=== PATIENT | male | born 1965 | race Caucasian/White ===

== ENCOUNTER 2017-08-27 22:48 | Emergency (ER) | payer OTHER ==
[~2017-08-27] VITALS: Ht 182.9 cm; Wt 99.5 kg
[2017-08-27 23:01] VITALS: TEMP 36.4; Ht 182.9 cm; Wt 99.5 kg
[2017-08-27] MEDS ORDERED: SODIUM CHLORIDE 0.9% 1000ML 1,000 ML IV STA (23:36)
[2017-08-27 23:51] LABS: BASO % 0.5 %; BASO ABS # 0.03 K/uL (0-0.2); COMPLETE YES; EOS % 4.3 %; IG% 0.2 %; LYMPH % 28.9 %; LYMPH ABS # 1.62 K/uL (1.2-3.4); MEAN CELL VOLUME 86.3 fL (80-100); MEAN CORPUSCULAR HEMOGLOBIN 29.7 pg (25-34); MEAN CORPUSCULAR HGB CONC 34.4 g/dl (32-36); MEAN PLATELET VOLUME 9.7 fL (7.4-10.4); MONO % 10.9 %; NEUT % 55.2 %; PLATELET COUNT 232 K/uL (130-400); RED BLOOD COUNT 4.98 M/uL (4.7-6.1); WHITE BLOOD COUNT 5.61 K/uL (4.8-10.8)
[2017-08-27] MEDS ORDERED: DEXTROSE 50% 50 ML SYR IV STA (23:54)
[2017-08-27] MEDS ORDERED: DEXTROSE 50% 50 ML SYR ONE (23:55)
[2017-08-28 00:08] LABS: CREATININE 0.91 mg/dl (0.60-1.40)
[2017-08-28 00:09] LABS: BUN/CREATININE RATIO 14.8 (10-20); CALCIUM 9.2 mg/dl (8.5-10.1); POTASSIUM 3.6 mmol/L (3.5-5.1)
[2017-08-28] MEDS ORDERED: LRS20 PO (00:16)
[2017-08-28] MEDS ORDERED: FLUT0.15 NAE (00:16)
[2017-08-28] MEDS ORDERED: LACT10SO30 PO (00:16)
[2017-08-28] MEDS ORDERED: BISA1TAB15 PO (00:16)
[2017-08-28] MEDS ORDERED: CHOL1TAB46 PO (00:16)
[2017-08-28] MEDS ORDERED: DOCU100C31 PO (00:16)
[2017-08-28] MEDS ORDERED: PRLSR20 PO (00:16)
[2017-08-28] MEDS ORDERED: PREG200C PO (00:16)
[2017-08-28] MEDS ORDERED: IBUP-1459 PO (00:16)
[2017-08-28] MEDS ORDERED: LAMO200T38 PO (00:16)
[2017-08-28] MEDS ORDERED: CALC625T4 PO (00:16)
[2017-08-28] MEDS ORDERED: LAMO25TA PO (00:16)
[2017-08-28] MEDS ORDERED: HYDR50CA2 PO (00:16)
[2017-08-28] MEDS ORDERED: DULO60CA44 PO (00:16)
[2017-08-28] MEDS ORDERED: METO25TA56 PO (00:16)
[2017-08-28] MEDS ORDERED: ACET325T96 PO (00:16)
[2017-08-28] MEDS ORDERED: PRAM1TAB6 PO (00:16)
[2017-08-28] MEDS ORDERED: CLON2TAB3 PO (00:16)
[2017-08-28 02:59] VITALS: BP 136/90; PULSE 55; O2SAT 98
--- NOTE | 2017-08-28 06:39 | DIAGNOSTIC IMAGING REPORT ---
CT HEAD WITHOUT CONTRAST (CT) CLINICAL HISTORY: Seizure. Acute change in mental status. Patient found on ground. COMPARISON STUDY: No previous studies for comparison. TECHNIQUE: Axial CT of the brain is performed from the vertex to the skull base. IV contrast was not administered for this examination. A dose lowering technique was utilized adhering to the principles of ALARA. CT DOSE: FINDINGS: No intra or extra-axial mass lesions are visualized. There is no CT evidence of acute cortical infarction. There is no evidence of midline shift. There is no acute hemorrhage. No calvarial fractures are visualized. There is a left frontal ventriculostomy catheter. The tip terminates within the anterior horn of the right lateral ventricle. There is no evidence of pathologic ventricular dilatation. There is no evidence of acute sinusitis. There is a small focus of encephalomalacia within the right anterior frontal vertex. The subjacent to a calvarial defect and likely relates to a prior shunt catheter tract IMPRESSION: No acute intracranial findings Electronically signed by: Cody Cr M.D. 08/28/2017 6:38 AM Dictated Date/Time: 08/28/2017 6:36 AM
--- NOTE | 2017-08-28 06:52 | DIAGNOSTIC IMAGING REPORT ---
LUMBAR SPINE WITHOUT CLINICAL HISTORY: 51 years-old Male presenting with low back pain, fall, AMS, found down. TECHNIQUE: Multidetector CT of the lumbar spine was performed without the use of intravenous contrast. IV contrast: None. A dose lowering technique was used consistent with the principles of ALARA (as low as reasonably achievable). COMPARISON: None. CT DOSE (mGy.cm): The estimated cumulative dose is 1465.55 mGy.cm. FINDINGS: Academic Support Specialist topogram: Unremarkable. Normal lumbar lordosis. Vertebral bodies maintain normal height and alignment. Intervertebral disc height loss associated with significant degenerative disc disease at L4-5 with vacuum disc phenomenon, osteophytosis, and endplate sclerosis evident. Milder degenerative changes noted at the remaining levels. No acute fracture or subluxation. Disc bulges noted at every level, most severe at L2-3. Varying degrees of neural foraminal narrowing evident most severe at L4-5 and L5-S1. Paraspinal soft tissues demonstrate infiltration of the presacral space. No evidence of a sacral fracture within the visualized portion of the sacrum. IMPRESSION: 1. No acute osseous injury of the lumbar spine. 2. Multilevel degenerative changes with spinal stenosis most severe at L2-3 and neural foraminal narrowing most severe at L4-5 and L5-S1, further detailed above. 3. Presacral infiltration, incompletely visualized and of uncertain etiology. Further evaluation with dedicated contrast enhanced CT of the abdomen and pelvis could be considered, especially given the history of trauma. The report will be called/faxed according to standard departmental protocol. Electronically signed by: Thad Ruggiero M.D. 08/28/2017 6:50 AM Dictated Date/Time: 08/28/2017 6:46 AM
--- NOTE | 2017-08-28 06:55 | DIAGNOSTIC IMAGING REPORT ---
ADDENDUM Please refer to the corrected dictation below. CHEST ONE VIEW PORTABLE CLINICAL HISTORY: 51 years-old Male presenting with AMS. TECHNIQUE: Portable upright AP view of the chest was obtained. COMPARISON: None. FINDINGS: The ventriculoperitoneal shunt descends along the left neck and projects over the mid line mediastinum, poorly visualized below the level of the T6 vertebral body. Lungs and pleural spaces clear. Post traumatic deformity of the right clavicle. Anterior cervical fusion hardware noted. Deformities of the right lateral second through fourth anterior ribs suggestive of fracture. Upper abdomen normal. IMPRESSION: 1. Mildly prominent superior mediastinal contour could be due to portable supine technique. 2. Age-indeterminate fractures of the right anterior second through fourth ribs. Electronically signed by: Thad Ruggiero M.D. 08/28/2017 8:31 AM Dictated Date/Time: 08/28/2017 8:29 AM ORIGINAL REPORT CHEST ONE VIEW PORTABLE CLINICAL HISTORY: 51 years-old Male presenting with AMS. TECHNIQUE: Portable upright AP view of the chest was obtained. COMPARISON: None. FINDINGS: Left internal jugular central venous catheter does not follow the expected course for intravenous placement. Mild apparent enlargement of the superior mediastinum may be due to portable supine technique. Cardiac silhouette normal in size. Mildly low lung volumes. Lungs and pleural spaces clear. Post traumatic deformity of the right clavicle. Anterior cervical fusion hardware noted. Deformities of the right lateral second through fourth anterior ribs suggestive of fracture. Upper abdomen normal. IMPRESSION: 1. Left internal jugular central venous catheter does not follow the expected course for intravenous placement. This raises concern for an intra-arterial placement. Correlate with blood gas and consider contrast-enhanced chest CT versus removal. 2. Mildly prominent superior mediastinal contour could be due to portable supine technique. 3. Age-indeterminate fractures of the right anterior second through fourth ribs. The report will be called/faxed according to standard departmental protocol. Electronically signed by: Thad Ruggiero M.D. 08/28/2017 6:54 AM Dictated Date/Time: 08/28/2017 6:51 AM
--- NOTE | 2017-08-28 07:16 | EMERGENCY ROOM VISIT NOTE ---
History Report prepared by Annika: Deb Baptiste Under the Supervision of: Dr. Sweetie Hanna M.D. First contact with patient: 23:14 Chief Complaint: SEIZURE Stated Complaint: SEIZURE Nursing Triage Summary: patient found in cell at senior living,brought in by ems patient had a seizure yesterday patient drowsy and able to answer questions History of Present Illness The patient is a 51 year old male who presents to the Emergency Room with complaints of an episode of a seizure occurring prior to arrival. Per the nursing staff, the patient was found in his snf cell unresponsive. The guards state that they believe he had a seizure and that he has a history of seizures. They report that he had a seizure yesterday and that they recently changed his medications. The guard notes that EMS took his blood sugar and it was 56. The patient complains of back pain and hip pain. He reports his symptoms are worse with movement. Per past records, the patient takes Lamictal 250 BID. Source of History: nursing staff, other (subway guard) Onset: prior to arrival Position: other (global) Quality: other (global) Timing: other (episode) Modifying Factors (Worsening): movement Associated Symptoms: + back pain Note: The patient complains of hip pain. Review of Systems See HPI for pertinent positives & negatives. A total of 10 systems reviewed and were otherwise negative. Past Medical & Surgical Medical Problems: (1) Seizures Family History Patient reports no known family medical history. Social History Smoking Status: Never Smoker Marital Status: single Housing Status: other (incarcerated) Occupation Status: other (prisoner) Current/Historical Medications Scheduled Baclofen (Baclofen), 20 MG PO BID Bisacodyl (Bisacodyl), 1 TAB PO QAM Calcium Polycarbophil (Fiber Laxative), 625 MG PO BID Cholecalciferol (Vitamin D3), 5,000 UNITS PO QAM Clonazepam (Klonopin), 2 MG PO BID Docusate Sodium (Docusate Sodium), 1 CAP PO BID Duloxetine Hcl (Cymbalta), 60 MG PO QAM Fluticasone Propionate (Nasal) (Flonase Allergy Relief), 2 SPRAYS RACHEL QAM Hydroxyzine Pamoate (Vistaril), 50 MG PO BID Lamotrigine (Lamictal), 200 MG PO BID Lamotrigine (Lamictal), 25 MG PO BID Metoprolol Tartrate (Lopressor) (Lopressor), 25 MG PO BID Omeprazole (Prilosec), 20 MG PO QAM Pramipexole Dihydrochloride (Pramipexole Dihydrochlori), 1 MG PO TID Pregabalin (Lyrica), 200 MG PO BID Scheduled PRN Acetaminophen Tab (Tylenol), 650 MG PO BID PRN for Headache Ibuprofen (Motrin), 400 MG PO TID PRN for Pain Lactulose (Encephalopathy) (Lactulose), 30 ML PO TID PRN for Constipation Allergies Coded Allergies: Methadone (Verified Allergy, Unknown, SCI LIST, 08/28/17) Penicillins (Verified Allergy, Unknown, SCI LIST, 08/28/17) Quetiapine (Verified Allergy, Unknown, SCI LIST, 08/28/17) Statins (Verified Allergy, Unknown, SCI LIST, 08/28/17) Tetracycline (Verified Allergy, Unknown, SCI LIST, 08/28/17) Physical Exam Vital Signs Date Time Temp Pulse Resp B/P (MAP) Pulse Ox O2 Delivery O2 Flow Rate FiO2 08/28/17 02:59 55 18 136/90 98 Room Air 08/28/17 02:21 71 18 120/93 98 08/28/17 02:15 60 08/28/17 02:05 65 15 08/28/17 00:30 58 18 120/89 98 Room Air 08/27/17 23:01 36.4 55 18 115/78 96 Room Air 08/27/17 23:00 57 Physical Exam Vital signs reviewed. General: Well-appearing , in no significant distress. Boarded and collared. Somnolence but arousable. Slurred speech. Incontinent of stool. HEENT: No scleral icterus, PERRLA, neck supple. Atraumatic. Edentulism. Cardiovascular: Regular rate and rhythm, no extra sounds. Pulmonary: Clear to auscultation bilaterally, normal work of breathing. Abdomen: Soft, nontender, nondistended, positive bowel sounds. Musculoskeletal: Atraumatic, no significant deformity. Cervical, thoracic and lumbar spine are palpated, nontender, no step-off or deformity appreciated. Some discomfort to low back with straight leg raise on the left. Neurologic: Patient awake alert and oriented x 3, full strength in all 4 extremities. No meningeal signs. Skin: Warm, dry, no rash. No significant abrasions/laceration. Medical Decision & Procedures ER Provider Diagnostic Interpretation: Radiology results as stated below per my review and radiologist interpretation: CHEST X-RAY: Findings: The results were interpreted by me. No focal lung consolidation. No failure. Post surgical change notes to spine. DRAWER IN HAND shunt noted. CT HEAD: Left frontal appraoch DRAWER IN HAND shunt catheter with tip extending into frontal horn of right lateral ventricle. No hydrocephalus. No acute intracranial hemorrhage or mass effect. Small region of right superior frontal gyrus hypodensity, most likely related to remote ventriculostomy catheter placement given adjacent skull defect. Visualized parnasal sinuses and mastoid air cells are clear. CT C SPINE: No evidence of acute fracture. C6-C7 anterior fusion. REversal normal cervical lordosis nad multilevel degnerative changes. Mild anterolisthesis of C3 on C4 is likely related to facet arthropathy, with cystlike or erosive changes at right facets and uncovertebral region. CT L SPINE: Mild anterior wedge deformity of L1, likely chronic. No visible fracture line or adjacent soft tissue swelling to suggest acute fracture. Moderate to sever degenerative changes result in multilevel canal and foraminal narrowing. L1-L2, posterior disc bulge and facet arthropathy causes mild-to moderate canal stenosis. L2-L3, posterior disc/ ossify complex and facet arthropathy/ edema and facet hypertrophy causes moderate to severe canal stenosis. L3-L4, large posterior disc bulge.extrusion and facet arthropathy cause severe canal stenosis. L4-L5, severe disc space narrowing and endplate changes with posterior disc/ osteophyte complex and facet arthropathy/ segments hypertrophy causing moderate to sever canal stenosis. Severe right L5-S1 foraminal narrowing. Lesser degree foraminal narrowing at other levels. Laboratory Results 08/27/17 23:05 Red Blood Count 4.98, Mean Corpuscular Volume 86.3, Mean Corpuscular Hemoglobin 29.7, Mean Corpuscular Hemoglobin Concent 34.4, Mean Platelet Volume 9.7, Neutrophils (%) (Auto) 55.2, Lymphocytes (%) (Auto) 28.9, Monocytes (%) (Auto) 10.9, Eosinophils (%) (Auto) 4.3, Basophils (%) (Auto) 0.5, Neutrophils # (Auto ) 3.10, Lymphocytes # (Auto) 1.62, Monocytes # (Auto) 0.61, Eosinophils # (Auto ) 0.24, Basophils # (Auto) 0.03 08/27/17 23:05 Test 08/27/17 23:05 08/27/17 23:46 08/28/17 00:41 White Blood Count 5.61 K/uL (4.8-10.8) Red Blood Count 4.98 M/uL (4.7-6.1) Hemoglobin 14.8 g/dL (14.0-18.0) Hematocrit 43.0 % (42-52) Mean Corpuscular Volume 86.3 fL (80-100) Mean Corpuscular Hemoglobin 29.7 pg (25-34) Mean Corpuscular Hemoglobin Concent 34.4 g/dl (32-36) Platelet Count 232 K/uL (130-400) Mean Platelet Volume 9.7 fL (7.4-10.4) Neutrophils (%) (Auto) 55.2 % Lymphocytes (%) (Auto) 28.9 % Monocytes (%) (Auto) 10.9 % Eosinophils (%) (Auto) 4.3 % Basophils (%) (Auto) 0.5 % Neutrophils # (Auto) 3.10 K/uL (1.4-6.5) Lymphocytes # (Auto) 1.62 K/uL (1.2-3.4) Monocytes # (Auto) 0.61 K/uL (0.11-0.59) Eosinophils # (Auto) 0.24 K/uL (0-0.5) Basophils # (Auto) 0.03 K/uL (0-0.2) RDW Standard Deviation 41.6 fL (36.4-46.3) RDW Coefficient of Variation 13.2 % (11.5-14.5) Immature Granulocyte % (Auto) 0.2 % Immature Granulocyte # (Auto) 0.01 K/uL (0.00-0.02) Anion Gap 7.0 mmol/L (3-11) Est Creatinine Clear Calc Drug Dose 120.0 ml/min Estimated GFR () 114.3 Estimated GFR (Non- 98.6 BUN/Creatinine Ratio 14.8 (10-20) Calcium Level 9.2 mg/dl (8.5-10.1) Total Bilirubin 0.4 mg/dl (0.2-1) Direct Bilirubin 0.1 mg/dl (0-0.2) Aspartate Amino Transf (AST/SGOT) 17 U/L (15-37) Alanine Aminotransferase (ALT/SGPT) 19 U/L (12-78) Alkaline Phosphatase 87 U/L (45-117) Total Protein 6.8 gm/dl (6.4-8.2) Albumin 3.4 gm/dl (3.4-5.0) Bedside Troponin I < 0.030 ng/ml (0-0.045) Bedside Glucose 118 mg/dl (70-99) Laboratory results per my review. Medications Administered Medications (Trade) Dose Ordered Sig/Lisa Route Start Time Stop Time Status Last Admin Dose Admin Sodium Chloride 1,000 ml @ 200 mls/hr Q5H STAT IV 08/27/17 23:36 08/28/17 04:35 DC 08/28/17 01:05 200 MLS/HR Dextrose (Dextrose 50% 50ML Syringe) 50 ml NOW STAT IV 08/27/17 23:54 08/27/17 23:55 DC 08/28/17 00:06 50 ML ECG Indication: other (LOC) Rate (beats per minute): 58 Rhythm: sinus bradycardia Findings: 1st degree AV block, no acute ischemic change, no ectopy ED Course 2330: Past medical records reviewed. The patient was evaluated in room C3. A complete history and physical examination was performed. 2336: Ordered NSS 1000 ml @ 200 mls/hr IV. 2354: Ordered Dextrose 50 ml IV. 0230: I reevaluated the patient and he was awake and talking. 0319: Upon reevaluation, the patient appeared to have improvement of his symptoms. I discussed findings with the patient. He verbalized agreement of the treatment plan. The patient was discharged home. Medical Decision Differential diagnosis: Etiologies such as metabolic, infection, hypoglycemia, electrolyte abnormalities , cardiac sources, intracerebral event, toxicologic, neurologic, as well as others were entertained. This pt was evaluated and appeared to be in no distress. IV access was obtained and lab work was drawn. Pt was placed on the paraoptometric. Seizure precautions were maintained. CT head was performed and reveals a DRAWER IN HAND shunt, but no hydrocephalus. Pt mental status cleared. Med list was reviewed. Pt was instructed to continue lamictal as prescribed. He should follow with neurology this week for medication review. Pt will return to the ED for worsening of symptoms or any medical concerns. Impression Primary Impression: Seizures Scribe Attestation The scribe's documentation has been prepared under my direction and personally reviewed by me in its entirety. I confirm that the note above accurately reflects all work, treatment, procedures, and medical decision making performed by me. Departure Information Dispostion Home / Self-Care Referrals Chriss OAKLEY (PCP) Forms HOME CARE DOCUMENTATION FORM, IMPORTANT VISIT INFORMATION Patient Instructions My [facility] Additional Instructions Diagnosis: Seizure disorder Follow up with your doctor regarding pending lamictal levels. Your seizure medications may need to be adjusted. Neurologic consulation is advised. Follow up with your doctor this week for reevaluation. Return to the ED for reevaluation.
--- NOTE | 2017-08-28 07:30 | DIAGNOSTIC IMAGING REPORT ---
CT OF THE CERVICAL SPINE CLINICAL HISTORY: Seizure. Neck pain. Change in mental status. Patient found on ground. COMPARISON STUDY: No previous studies for comparison. CT DOSE: 1203.20 mGy.cm TECHNIQUE: CT scan of the cervical spine was performed from the skull base to the thoracic inlet. Images are reviewed in the axial, sagittal, and coronal planes. IV contrast was not administered for this examination. A dose lowering technique was utilized adhering to the principles of ALARA. FINDINGS: The visualized portions of the lung apices reveal no evidence of pneumothorax. The prevertebral soft tissues are normal. No fractures or subluxations are visualized. There is a reversal of the normal cervical lordosis. There are multilevel degenerative changes. There are postsurgical changes of a C6-7 anterior cervical discectomy and fusion. IMPRESSION: 1. No acute fractures or traumatic subluxations 2. Postsurgical changes of a C6-7 fusion 3. Reversal of the normal cervical lordosis with multilevel degenerative change Electronically signed by: Cody Cr M.D. 08/28/2017 7:28 AM Dictated Date/Time: 08/28/2017 7:24 AM
== END 2017-08-28 03:08 | disposition home or self-care (01) ==
LOC: C.EDC 22:51
DX: R56.9 Unspecified convulsions (principal); Z98.2 Presence of cerebrospinal fluid drainage device; Z79.899 Other long term (current) drug therapy

== ENCOUNTER 2017-11-18 23:39 | Emergency (ER) | payer OTHER ==
[~2017-11-18] VITALS: Ht 182.9 cm; Wt 85.0 kg
[~2017-11-18 23:39] MED LIST: ACET325T96 PO; BISA1TAB15 PO; CALC625T4 PO; CHOL1TAB46 PO; CLON2TAB3 PO; DOCU100C31 PO; DULO60CA44 PO; FLUT0.15 NAE; HYDR50CA2 PO; IBUP-1459 PO; LACT10SO30 PO; LAMO200T35 PO; LAMO25TA PO; LRS20 PO; METO25TA56 PO; PRAM1TAB6 PO; PREG200C PO; PRLSR20 PO
[2017-11-18 23:43] VITALS: TEMP 36.7; Ht 182.9 cm; Wt 85.0 kg
[2017-11-18 23:53] VITALS: O2SAT 98
[2017-11-19 00:22] LABS: BASO % 0.4 %; BASO ABS # 0.02 K/uL (0-0.2); COMPLETE YES; EOS % 1.4 %; HEMATOCRIT 43.7 % (42-52); IG% 0.2 %; LYMPH % 19.2 %; LYMPH ABS # 1.09 K/uL (1.2-3.4); MEAN CELL VOLUME 86.5 fL (80-100); MEAN CORPUSCULAR HEMOGLOBIN 29.5 pg (25-34); MEAN CORPUSCULAR HGB CONC 34.1 g/dl (32-36); MEAN PLATELET VOLUME 9.9 fL (7.4-10.4); MONO % 10.4 %; NEUT % 68.4 %; PLATELET COUNT 202 K/uL (130-400); RED BLOOD COUNT 5.05 M/uL (4.7-6.1); WHITE BLOOD COUNT 5.68 K/uL (4.8-10.8)
[2017-11-19 00:33] LABS: PARTIAL THROMBOPLASTIN RATIO 1.1; PROTHROMBIN TIME (PATIENT) 10.5 SECONDS (9.0-12.0)
[2017-11-19 00:34] LABS: URINE APPEARANCE CLEAR (CLEAR); URINE BILIRUBIN NEG (NEG); URINE COLOR YELLOW; URINE EPITHELIAL CELL AUTO 0-5 /lpf (0-5); URINE NITRITE NEG (NEG); URINE PH 5.5 (4.5-7.5); URINE SPECIFIC GRAVITY 1.011 (1.000-1.030); UROBILINOGEN NEG (NEG); ZZUR CULT IF INDIC CLEAN CATCH NO
[2017-11-19 00:40] LABS: BUN/CREATININE RATIO 11.6 (10-20); CALCIUM 9.1 mg/dl (8.5-10.1); CREATININE 0.94 mg/dl (0.60-1.40); POTASSIUM 3.7 mmol/L (3.5-5.1)
[2017-11-19 01:08] LABS: MANUAL MICROSCOPIC REQUIRED? NO; REVIEW REQ? NO
[2017-11-19] MEDS ORDERED: SODIUM CHLORIDE 0.9% 1000ML 1,000 ML IV STA (01:11)
[2017-11-19] MEDS ORDERED: CALC625T PO (01:41)
[2017-11-19] MEDS ORDERED: SKINCRE42 TOP (01:48)
[2017-11-19] MEDS ORDERED: [UNRECOGNIZED DRUG - CODE] TOP (01:48)
[2017-11-19] MEDS ORDERED: EMOLLOT TOP (01:50)
[2017-11-19 02:05] LABS: BENZODIAZEPINE, URINE NEG (NEG); COCAINE,URINE NEG (NEG); PHENCYCLIDINE, URINE NEG (NEG)
--- NOTE | 2017-11-19 02:15 | EMERGENCY ROOM VISIT NOTE ---
History First contact with patient: 23:47 Chief Complaint: CONFUSION Stated Complaint: CONFUSION Nursing Triage Summary: Patient presents from jail with 2 guards for evaluation of confusion. Patient has been confused the last several days according to staff at jail. Patient is disoriented and answers orientation questions inappropriately. Patient reports head pain, neck pain, and bilateral hand numbness. Patient has hx ADMINISTRATIVE SUPPORT COORDINATOR shunt. Patient has frequent falls according to staff and patient. Patient has abrasions to face and forehead. History of Present Illness The patient is a 52 year old male who presents to the Emergency Room with complaints of altered mental status. Per the jail the patient has been confused for the past few days. Patient currently complains of headache and neck pain as good as aching, ranging in severity 5 out of 10. Nothing makes it better or worse. It does not radiate. Patient currently believes it is 1997 and Joe is the president. Patient is able to follow commands but is unaware of the year or month. He knows his name and his current situation where he is at. Patient denies chest pain, dyspnea, abdominal pain, fevers, vomiting, cold symptoms. Patient is unaware that he has a ADMINISTRATIVE SUPPORT COORDINATOR shunt. He also has a history of seizures. Per the jail he has fallen multiple times and this is how he sustained his facial and head injuries. Review of Systems Unable to obtain secondary to altered mental status Past Medical/Surgical History Medical Problems: (1) Seizures ADMINISTRATIVE SUPPORT COORDINATOR shunt Family History Patient reports no known family medical history. Social History Smoking Status: Current Every Day Smoker Marital Status: single Housing Status: other Occupation Status: other Current/Historical Medications Scheduled Baclofen (Baclofen), 20 MG PO BID Calcium Polycarbophil (Fibercon), 625 MG PO BID Cholecalciferol (Vitamin D3), 5,000 UNITS PO QAM Emollient (Aloe Aftersun Lotion), 1 APPLN TOP BID Lamotrigine (Lamictal), 200 MG PO BID Lamotrigine (Lamictal), 25 MG PO BID Pramipexole Dihydrochloride (Pramipexole Dihydrochlori), 1 MG PO TID Pregabalin (Lyrica), 200 MG PO BID Skin Protectants, Misc. (Sensi-Care Moisturizing), 1 APPLN TOP QAM Scheduled PRN Acetaminophen Tab (Tylenol), 650 MG PO BID PRN for Headache Docusate Sodium (Docusate Sodium), 1 CAP PO DAILY PRN for Constipation Ibuprofen (Motrin), 400 MG PO TID PRN for Pain Lactulose (Encephalopathy) (Lactulose), 30 ML PO TID PRN for Constipation Vitamin E (Topical) (Super E Hand/Body), 1 APPLN TOP BID PRN for UNDECIDED Physical Exam Vital Signs Date Time Temp Pulse Resp B/P (MAP) Pulse Ox O2 Delivery O2 Flow Rate FiO2 11/19/17 00:31 90 16 136/92 98 Room Air 11/19/17 00:01 91 11/18/17 23:53 98 Room Air 11/18/17 23:43 36.7 97 16 136/89 97 Room Air Physical Exam PHYSICAL EXAM: VITALS: Vitals are noted on the nurse's note and reviewed by myself. Vital signs stable. GENERAL: White male in shackles with multiple facial injuries and abrasions, in no acute distress, nondiaphoretic, well-developed well-nourished. SKIN: Multiple contusions and abrasions to face The rest of the skin was without obvious lacerations or abrasions. Capillary reflex less than 2 seconds. HEAD: Normocephalic EARS: External auditory canals clear, tympanic membranes pearly campbell without erythema or effusion bilaterally. No hemotympanums. No harding sign. No mastoid tenderness. EYES: Pupils equal round and reactive to light and accommodation. Conjunctivae without injection, sclerae without icterus. Extraocular movements intact. NOSE: Patent, turbinates without inflammation or discharge. No sinus tenderness. No septal hematoma or bleeding. FACE: No facial bone tenderness. Full range of motion of the jaw without tenderness. MOUTH: Mucous membranes moist. Pharynx without erythema or exudate. Uvula midline. Airway patent. Tongue does not deviate. NECK: Supple without nuchal rigidity. Cervical spine is nontender. Full range of motion of the neck without tenderness. No JVD. HEART: Regular rate and rhythm LUNGS: Clear to auscultation bilaterally without wheezes, rales or rhonchi. No dullness to percussion. No retractions or accessory muscle use. No chest wall tenderness. ABDOMEN: Positive bowel sounds x 4. Normal tympanic percussion. Soft, nontender, without masses or organomegaly. No guarding or rebound tenderness. MUSCULOSKELETAL: No tenderness of the thoracic or lumbar spine. Full range of motion without tenderness to palpation in all extremities. Strength 5/5 throughout. Peripheral pulses 2+. NEURO: Patient was alert and oriented to person place but not time. Normal sensation to light and sharp touch. Negative pronator drift. Cerebellar function intact. No other focal neurological deficits. Medical Decision & Procedures Laboratory Results 11/19/17 00:05 Red Blood Count 5.05, Mean Corpuscular Volume 86.5, Mean Corpuscular Hemoglobin 29.5, Mean Corpuscular Hemoglobin Concent 34.1, Mean Platelet Volume 9.9, Neutrophils (%) (Auto) 68.4, Lymphocytes (%) (Auto) 19.2, Monocytes (%) (Auto) 10.4, Eosinophils (%) (Auto) 1.4, Basophils (%) (Auto) 0.4, Neutrophils # (Auto ) 3.89, Lymphocytes # (Auto) 1.09, Monocytes # (Auto) 0.59, Eosinophils # (Auto ) 0.08, Basophils # (Auto) 0.02 11/19/17 00:05 Test 11/19/17 00:05 11/19/17 00:08 11/19/17 00:09 11/19/17 00:12 White Blood Count 5.68 K/uL (4.8-10.8) Red Blood Count 5.05 M/uL (4.7-6.1) Hemoglobin 14.9 g/dL (14.0-18.0) Hematocrit 43.7 % (42-52) Mean Corpuscular Volume 86.5 fL (80-100) Mean Corpuscular Hemoglobin 29.5 pg (25-34) Mean Corpuscular Hemoglobin Concent 34.1 g/dl (32-36) Platelet Count 202 K/uL (130-400) Mean Platelet Volume 9.9 fL (7.4-10.4) Neutrophils (%) (Auto) 68.4 % Lymphocytes (%) (Auto) 19.2 % Monocytes (%) (Auto) 10.4 % Eosinophils (%) (Auto) 1.4 % Basophils (%) (Auto) 0.4 % Neutrophils # (Auto) 3.89 K/uL (1.4-6.5) Lymphocytes # (Auto) 1.09 K/uL (1.2-3.4) Monocytes # (Auto) 0.59 K/uL (0.11-0.59) Eosinophils # (Auto) 0.08 K/uL (0-0.5) Basophils # (Auto) 0.02 K/uL (0-0.2) RDW Standard Deviation 42.2 fL (36.4-46.3) RDW Coefficient of Variation 13.5 % (11.5-14.5) Immature Granulocyte % (Auto) 0.2 % Immature Granulocyte # (Auto) 0.01 K/uL (0.00-0.02) Prothrombin Time 10.5 SECONDS (9.0-12.0) Prothromb Time International Ratio 1.0 (0.9-1.1) Activated Partial Thromboplast Time 28.5 SECONDS (21.0-31.0) Partial Thromboplastin Ratio 1.1 Anion Gap 5.0 mmol/L (3-11) Est Creatinine Clear Calc Drug Dose 103.2 ml/min Estimated GFR () 109.1 Estimated GFR (Non- 94.2 BUN/Creatinine Ratio 11.6 (10-20) Calcium Level 9.1 mg/dl (8.5-10.1) Total Bilirubin 0.3 mg/dl (0.2-1) Aspartate Amino Transf (AST/SGOT) 30 U/L (15-37) Alanine Aminotransferase (ALT/SGPT) 24 U/L (12-78) Alkaline Phosphatase 74 U/L (45-117) Total Protein 7.5 gm/dl (6.4-8.2) Albumin 3.8 gm/dl (3.4-5.0) Globulin 3.7 gm/dl (2.5-4.0) Albumin/Globulin Ratio 1.0 (0.9-2) Bedside Lactic Acid Venous 2.07 mmol/L (0.90-1.70) Bedside Troponin I < 0.030 ng/ml (0-0.045) Ammonia 38.0 umol/L (11-32) Test 11/19/17 00:15 Urine Color YELLOW Urine Appearance CLEAR (CLEAR) Urine pH 5.5 (4.5-7.5) Urine Specific Ajo 1.011 (1.000-1.030) Urine Protein NEG (NEG) Urine Glucose (UA) NEG (NEG) Urine Ketones NEG (NEG) Urine Occult Blood NEG (NEG) Urine Nitrite NEG (NEG) Urine Bilirubin NEG (NEG) Urine Urobilinogen NEG (NEG) Urine Leukocyte Esterase NEG (NEG) Urine WBC (Auto) 0 /hpf (0-5) Urine RBC (Auto) 0-4 /hpf (0-4) Urine Hyaline Casts (Auto) 0 /lpf (0-5) Urine Epithelial Cells (Auto) 0-5 /lpf (0-5) Urine Bacteria (Auto) NEG (NEG) Urine Opiates Screen NEG (NEG) Urine Methadone, Qualitative NEG (NEG) Urine Barbiturates NEG (NEG) Urine Phencyclidine (PCP) Level NEG (NEG) Ur Amphetamine/Methamphetamine NEG (NEG) MDMA (Ecstasy) Screen NEG (NEG) Urine Benzodiazepines Screen NEG (NEG) Urine Cocaine Metabolite NEG (NEG) Urine Marijuana (THC) NEG (NEG) Medications Administered Medications (Trade) Dose Ordered Sig/Lisa Route Start Time Stop Time Status Last Admin Dose Admin Sodium Chloride 1,000 ml @ 999 mls/hr Q1H1M STAT IV 11/19/17 01:11 11/19/17 02:11 11/19/17 01:30 999 MLS/HR ED Course Prior records/ancillary studies reviewed and summarized above. Nursing notes reviewed. Additional history obtained from correction officers. The patient's history was concerning for altered mental status. Differential diagnosis: Etiologies such as metabolic, infection, hypoglycemia, electrolyte abnormalities , cardiac sources, intracerebral event, toxicologic, neurologic, as well as others were entertained. Physical examination: As above. ER treatment provided: IV Lock Normal saline hydration. [facility] was placed On reassessment the patients mental status improved. Diagnostics interpretation by me: ECG: Normal sinus, poor baseline, no acute ST-T wave changes, rate of 89. Impression normal sinus rhythm interpreted by myself The labs revealed ammonia 38. Stable H&H. Negative troponin Imaging studies: Chest x-ray with no acute consolidation, pneumothorax or free air per my interpretation Head and cervical CT were read by stat radiology and negative for intracranial bleed. C-spine was concerning for possible fragmentation of the right C4 superior articular process Patient was reassessed and was alert and oriented 4. I then repeated his ROS and A total of 10 systems reviewed and were otherwise negative. Patient did not have any C-spine pain on clinical exam. Imaging was ordered as he was complaining of headache and neck pain and was confused appearing. He was laughing about being confused earlier. He was informed that since he was confused appearing and extensive work was done. He did not seem to care about that. Patient was neurovascularly and neurologically intact. I then spoke to the jail nurse and states that he normally is cooperative but does not know this patient that well. I informed him of the results at about outpatient follow-up with orthopedic spine and wearing a [place]. Consultation: A consultation was placed with the orthopedic spine, Dr. Nguyen. The case was discussed and diagnostics were reviewed. He recommends [place] and outpatient follow-up in a week if patient is still having pain. He does not need follow- up if he is pain free. Exam and history seem consistent with possible head injury, neck injury and possible episode of confusion that is now resolved. Patient could've been malingering also. He was laughing about the fact that he was confused earlier. Patient did not say whether not he pretended to be confused. Patient was neurovascularly and neurologically intact. No other injuries are noted. By the evaluation outlined above emergent etiologies such as acute intracranial bleed, CVA, postural headache, meningitis, encephalitis, mass or mass effect, sinusitis, infection, temporal arteritis, trigeminal neuralgia, pseudotumor cerebri, tension headache, cluster headache, carbon monoxide exposure, cardiac, neurological, intra-abdominal, as well as others were deemed relatively unlikely. The pt informed about the findings as listed above. All questions were answered and pleased with the treatment. Return instructions were outlined and the patient was discharged in stable condition. Referral: The patient was referred back to their primary care physician for follow-up in 2 to 3 days and spine in a week if still symptomatic for a recheck of the current condition. . Medical Decision As above Medication Reconcilliation Current Medication List: was personally reviewed by me Blood Pressure Screening Patient's blood pressure: Normal blood pressure Impression Primary Impression: Confusion Additional Impressions: Head injury Neck pain Departure Information Dispostion Home / Self-Care Condition GOOD Referrals Chriss OAKLEY (PCP) Patient Instructions My [facility] [place] [employer] Additional Instructions Wear the neck collar at all times except for showering and sleeping. Ibuprofen(Motrin, Advil) may be used for fever or pain. Use 600mg every six hours as needed. Take with food. Avoid using more than 2400mg in a 24 hour period. Do not use 2400mg per day for more than three consecutive days without physician direction. Prolonged inappropriate use can lead to stomach upset or ulcers. (AND/OR) Acetaminophen(Tylenol) may be used for fever or pain. Use 1000mg every six hours as needed. Avoid using more than 3000mg in a 24 hour period. Rest and drink plenty of fluids as tolerated. Continue current medications. Avoid strenuous activities and anything that worsens your pain. Resume normal activities once your symptoms resolve. Return to the ER immediately for worsening or persistent confusion, numbness, tingling, weakness, abdominal pain, vomiting, fevers, chest pains, difficulty breathing, worsening of your condition, or as needed. Follow up with your primary physician in 2-3 days for a recheck of your current condition. Follow-up with spine in one week if you are still having neck pain. Problem Qualifiers
[2017-11-19 02:33] VITALS: BP 128/84; PULSE 83; O2SAT 98
--- NOTE | 2017-11-19 06:42 | DIAGNOSTIC IMAGING REPORT ---
CHEST ONE VIEW PORTABLE CLINICAL HISTORY: Sepsis. COMPARISON STUDY: Chest radiograph August 19, 2017. FINDINGS: Note is made of an anterior cervical spine fusion and partially visualized ventriculostomy catheter. No pneumothorax or pleural effusion is identified. There is no consolidation to suggest pneumonia. There is no evidence of pulmonary edema. Cardiomediastinal silhouette is normal. There is a healed right clavicular fracture. IMPRESSION: No acute cardiopulmonary findings. Electronically signed by: Jose Fregoso M.D. 11/19/2017 6:40 AM Dictated Date/Time: 11/19/2017 6:39 AM
--- NOTE | 2017-11-19 06:46 | DIAGNOSTIC IMAGING REPORT ---
CERVICAL SPINE W/O CT DOSE: 1092.85 mGy.cm CLINICAL HISTORY: 52 years-old Male with ams, SUAREZ/neck pain. Acute headache with neck pain COMPARISON: CT cervical spine 08/28/2017. TECHNIQUE: Multiple axial CT images of the cervical spine were obtained without contrast. A dose lowering technique was utilized adhering to the principles of ALARA. FINDINGS: Linear lucency involving the right C4 superior articular facet is nicely seen on image 27 series 501 is new from prior study. On the axial images the margins appear sclerotic as seen on image 315 series 5. No additional acute abnormality of the cervical spine identified. There is reversal the normal cervical lordosis with 25 degrees kyphotic curvature centered at the C6-C7 level. Anterior plate and screw fusion with discectomy redemonstrated at C6-C7 with complete bony fusion of the vertebral bodies. Multilevel intervertebral disc space narrowing, endplate spurring and facet arthropathy is noted with facet arthrosis most pronounced on the right at C3-C4. 3 mm anterolisthesis C3 on C4 appears slightly progressed from prior study, previously 2 mm. Partial fusion of the facets noted on the right at C6/C7. No prevertebral soft tissue swelling identified. Lung apices are clear. IMPRESSION: 1. Linear lucency with sclerotic margins involves the superior articular facet at C4 which appears new from prior study dated 08/28/2017 suggesting subacute fracture. There is also severe facet arthropathy noted on the right at C3-C4 with 3 mm anterolisthesis which is likely secondary to associated facet arthropathy. 2. Prior anterior plate and screw fusion and discectomy with bony fusion at the C6-C7 level. 3. Reversal of the normal cervical lordosis with 25 degrees kyphotic curvature centered at C6-C7. The above report was generated using voice recognition software. It may contain grammatical, syntax or spelling errors. Electronically signed by: Kd Ferrell M.D. 11/19/2017 6:44 AM Dictated Date/Time: 11/19/2017 6:37 AM
--- NOTE | 2017-11-19 07:17 | DIAGNOSTIC IMAGING REPORT ---
CT OF THE HEAD WITHOUT CONTRAST CLINICAL HISTORY: Headache. Altered mental status. COMPARISON STUDY: Head CT T August 28, 2017. TECHNIQUE: Helical axial images of the head were obtained without IV contrast. Automated exposure control was utilized for the study. A dose lowering technique was utilized adhering to the principles of ALARA. FINDINGS: A frontal ventriculostomy catheter is unchanged position. Catheter traverses the frontal horn of the left lateral ventricle and is adjacent to the septum pellucidum. Ventricular size is stable since exam of August 28, 2017. No acute intracranial hemorrhage, midline shift or mass effect is present. There are no findings to suggest acute dural sinus thrombosis or acute territorial infarct. Minimal suspect encephalomalacia within the anterior medial right frontal lobe is unchanged. There is a small right forehead contusion. There is no calvarial fracture. There is mild mucosal thickening of the ethmoid sinuses. IMPRESSION: 1. No acute intracranial findings. 2. Stable ventricular size with unchanged position of ventriculostomy catheter since exam of August 28, 2017. 3. Small right forehead contusion. No calvarial fracture. Electronically signed by: Jose Fregoso M.D. 11/19/2017 7:16 AM Dictated Date/Time: 11/19/2017 6:41 AM
== END 2017-11-19 02:28 ==
LOC: C.EDB 23:40 → C.EDA 11-19 02:28
DX: R41.0 Disorientation, unspecified (principal); S00.81XA Abrasion of other part of head, initial encounter; W19.XXXA Unspecified fall, initial encounter; M54.2 Cervicalgia; F17.200 Nicotine dependence, unspecified, uncomplicated; R56.9 Unspecified convulsions; Z98.2 Presence of cerebrospinal fluid drainage device

== ENCOUNTER 2019-03-30 13:02 | Inpatient (IN) ==
[2019-03-30] MEDS ORDERED: SODIUM CHLORIDE 0.9% 1000ML 1,000 ML IV ONE (13:33)
[2019-03-30 13:54] LABS: Basophils # (auto) 0.01 K/uL (0-0.2); Basophils % (auto) 0.2 %; Eosinophils # (auto) 0.18 K/uL (0-0.5); Eosinophils % (auto) 3.6 %; Hematocrit (blood only) 36.9 % (42-52); Hemoglobin 12.7 g/dL (14.0-18.0); Immature Granulocytes # (auto) 0.01 K/uL (0.00-0.02); Immature Granulocytes % (auto) 0.2 %; Lymphocytes % (auto) 17.8 %; Mean Corpuscular Hgb Conc 34.4 g/dL (32-36); Mean Corpuscular Volume 85.8 fL (80-100); Mean Platelet Volume 9.8 fL (7.4-10.4); Monocytes # (auto) 0.57 K/uL (0.11-0.59); Monocytes % (auto) 11.3 %; Neutrophils # (auto) 3.38 K/uL (1.4-6.5); Neutrophils % (auto) 66.9 %; Platelet Count 160 K/uL (130-400); RDW Coefficient of Variation 13.2 % (11.5-14.5); RDW Standard Deviation 41.7 fL (36.4-46.3); White Blood Count 5.05 K/uL (4.8-10.8)
[2019-03-30 14:17] LABS: Alanine Aminotransferase 24 U/L (12-78); Albumin Level 2.7 gm/dl (3.4-5.0); Aspartate Aminotransferase 13 U/L (15-37); BUN Creatinine Ratio 29.3 (10-20); Bilirubin Direct 0.3 mg/dl (0-0.2); Blood Urea Nitrogen 18 mg/dl (7-18); Calcium 8.7 mg/dl (8.5-10.1); Carbon Dioxide 26 mmol/L (21-32); Chloride 108 mmol/L (98-107); Est GFR (Non-African American) 115.6; Glucose 80 mg/dl (70-99); Potassium 3.8 mmol/L (3.5-5.1); Sodium 139 mmol/L (136-145)
[2019-03-30 14:19] LABS: Alkaline Phosphatase 100 U/L (45-117); Bilirubin,Total 0.8 mg/dl (0.2-1); Total Protein 6.6 gm/dl (6.4-8.2)
--- NOTE | 2019-03-30 14:33 | XRay Report ---
XR abdomen 2V w PA chest CLINICAL HISTORY: abdominal pain pain COMPARISON STUDY: 03/26/2019 FINDINGS: Bibasilar atelectasis. Lungs otherwise appear clear. Diaphragms are smooth. Old healed frac ture right clavicle. Bowel pattern suggests small bowel ileus. Mild small bowel distention is present . I cannot entirely exclude the possibility of early partial small bowel obstruction. No secondary evidence for free air. Shunt catheter in position within the pelvis. IMPRESSION: 1. Mild bibasilar atelectasis. 2. Ileus versus partial small bowel obstruction. The above report was generated using voice recognition software. It may contain grammatical, syntax or spelling errors. Electronically signed by: Niraj Tariq M.D. 03/30/2019 2:32 PM
[2019-03-30] MEDS ORDERED: IOVERSOL 100ml IV PRN (15:52)
--- NOTE | 2019-03-30 16:22 | CT Scan Report ---
ABDOMEN AND PELVIS CT WITH IV CONTRAST CT DOSE: 702.82 mGy.cm HISTORY: Acute generalized abdominal pain with clinical concern for small bowel obstruction ro sbo TECHNIQUE: Multiaxial CT images of the abdomen and pelvis were performed following the use of intrave nous contrast. A dose lowering technique was utilized adhering to the principles of ALARA. COMPARISON STUDY: CT abdomen and pelvis 03/26/2019 FINDINGS: Trace pleural effusions. Subsegmental bibasilar consolidative and groundglass opacities. No pneumatos is or pneumoperitoneum identified. Imaged inferior cardiac chambers are unremarkable. Ill-defined hypodense 1.9 x 1.7 cm lesion of the right hepatic lobe is unchanged, image 25 series 2 w hich is indeterminate. The spleen, gallbladder, pancreas and adrenal glands are unremarkable. Kidneys , and ureters are unremarkable. Wall thickening of the bladder with partial distention. Mild prostame joaquín. Small fat filled bilateral inguinal hernias. No aortic aneurysm. There is moderate wall thickening of the rectum and sigmoid. Pars operative changes from prior partia l sigmoid resection. Wall thickening is noted at the anastomotic site. Colonic diverticulosis without acute diverticulitis. Fluid-filled loops of large bowel are noted with air-fluid levels. Multiple di lated air-filled loops of small bowel are also noted measuring up to 4.2 cm transversely. Transitione d collapsed loops of small bowel are seen about the abdominal left lower quadrant demonstrating angul ar loops suggestive of obstruction secondary to adhesions. Small bowel wall thickening is also noted at several locations with associated interloop edema with trace abdominopelvic ascites. Mild generali zed body wall edema. Degenerative changes of the spine. Mild anterior endplate wedging noted at the T11 and, T12 and L1 le vels. Severe disc space narrowing at L4-L5. There is a catheter noted within the abdominal cavity, di stal tip projected along the central inferior pelvis. IMPRESSION: 1. Multiple dilated air and fluid-filled loops of small bowel suggest small bowel obstruction with tr ansitioned collapsed loops of small bowel seen within the abdominal left lower quadrant, likely secon lesley to underlying small bowel adhesions. Several loops of small bowel demonstrate associated wall th ickening with interloop edema with trace reactive abdominal pelvic ascites. 2. No pneumatosis or pneumoperitoneum. 3. Postoperative changes from prior partial sigmoid colon resection. Wall thickening at the anastomos is, distal sigmoid and rectum suggestive of a nonspecific proctocolitis. Correlate clinically. 4. Colonic diverticulosis without acute diverticulitis. 5. Suggested diarrheal illness. 6. Trace bilateral pleural effusions with bibasilar opacities suggest atelectasis or pneumonitis. 7. Additional findings as above. Electronically signed by: Kd Ferrell M.D. 03/30/2019 4:20 PM
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
--- NOTE | 2019-03-30 19:09 | Emergency Department Note ---
Entered by Ashley Mcdowell acting as a scribe for Nav Rivera History of Present Illness General Chief complaint: Abdominal Pain Stated complaint: ABD PAIN,CONSTIPATED Time Seen by Provider: 03/30/19 13:32 Source: patient History of Present Illness Onset (ago): day(s) 2 Location: abdomen Pain Consistency: + constant Maximum Pain Intensity: 8 Associated symptoms: + nausea/vomiting The patient is a 53 year old male who presents to the Emergency Room with complaints of constant abdominal pain that started 2 days ago. The patient rates his pain an 8/10 in severity. He also complains of vomiting. He denies any blood in his vomit. No fevers. Patient has a history of multiple abdominal surgeries in the past as well as small bowel instructions. Home Medications Home Medications Medication Instructions Recorded Confirmed Type pramipexole 1 mg tablet 1 mg PO TID 08/16/18 03/30/19 History pregabalin 200 mg capsule 200 mg PO BID 08/16/18 03/30/19 History celecoxib 100 mg capsule 100 mg PO DAILY cap 02/24/19 03/30/19 History furosemide 20 mg tablet 20 mg PO DAILY PRN 02/24/19 03/30/19 History omeprazole 20 mg capsule,delayed 20 mg PO QAM 02/24/19 03/30/19 History release sertraline 50 mg tablet 50 mg PO QAM 02/24/19 03/30/19 History verapamil ER 180 mg 24 hr 180 mg PO QAM 02/24/19 03/30/19 History capsule,extended release cholecalciferol (vitamin D3) 5,000 unit PO DAILY 03/26/19 03/30/19 History [Vitamin D3] hydroxyzine pamoate 25 mg PO TID PRN 03/26/19 03/30/19 History irbesartan 150 mg PO DAILY 03/26/19 03/30/19 History lamotrigine 50 mg PO BID 03/26/19 03/30/19 History mineral oil-hydrophil petrolat 1 applic TOPICAL BID 03/26/19 03/30/19 History [DermaPhor] ciprofloxacin HCl 500 mg PO BID 03/30/19 03/30/19 History hydrocodone-acetaminophen 2 tab PO TID PRN 03/30/19 03/30/19 History lamotrigine 200 mg PO BID 03/30/19 03/30/19 History sennosides [senna] 2 tab PO HS PRN 03/30/19 03/30/19 History Allergies Allergy/AdvReac Type Severity Reaction Status Date / Time codeine Allergy Unknown Gastrointestinal Verified 03/30/19 14:20 Upset methadone Allergy Unknown SCI LIST Verified 03/30/19 14:20 Penicillins Allergy Unknown SCI LIST Verified 03/30/19 14:20 quetiapine Allergy Unknown SCI LIST Verified 03/30/19 14:20 Llfovoi-Zuh-Gzl Reductase Allergy Unknown SCI LIST Verified 03/30/19 14:20 Inhibitor tetracycline Allergy Unknown SCI LIST Verified 03/30/19 14:20 Past Med/Surg History Medical History Hydrocephalus (Resolved) PER PT VERBAL REPORT Narcolepsy (Chronic) PER PT REPORT Hx MRSA infection (Chronic) Seizure (Resolved) Adult antisocial behavior (Chronic) GERD (gastroesophageal reflux disease) (Chronic) Asthma (Chronic) Multiple sclerosis (Chronic) Sleep apnea (Chronic) Insomnia (Chronic) Anxiety (Chronic) Bipolar disorder (Chronic) Vitamin D deficiency (Chronic) Cannabis abuse (Chronic) Restless legs syndrome (Chronic) Charcot foot due to diabetes mellitus (Chronic) Diabetic neuropathy (Chronic) HTN (hypertension) (Chronic) Bowel obstruction IBS (irritable bowel syndrome) Surgical History S/P colostomy (Resolved) S/P colostomy takedown (Resolved) S/P hernia repair (Resolved) S/P tonsillectomy (Resolved) S/P foot surgery (Resolved) S/P BRAZER FURNACE shunt (Resolved) S/P brain surgery (Resolved) Social History Preferred Language: Norwegian Communication Ability: Effective Visual Impairment: Diminished Hearing Ability: Normal [employer]ide Furnace Tender Required: No Beliefs That Will Affect Care: Alevism Alevism Beliefs: Moravian marital status: Current Living Situation: Other Current Living Situation Comment: [place] current occupational status: disabled Other Information That Helps Us Care for You: No Feels Safe at Home: Yes Safety Concerns: Feels Safe At This Time Smoking Status: Current every day smoker Tobacco Type: cigarettes Cigarettes Per Day: 10 Do You Dip or Chew Tobacco: No Hx Alcohol Use: No Hx Substance Use: No Review of Systems See HPI for pertinent positives & negatives. and A total of 10 systems reviewed and were otherwise negative Physical Exam Vital Signs Vital Signs - 24 hr 03/30/19 13:12 03/30/19 14:51 03/30/19 16:10 Temperature 36.9 C Temperature Source Oral Sepsis Recent Fever Within 48 Hours No Sepsis New/Unexplained Change in Mental Status No Sepsis Action Taken by Nursing No Action Required Pulse Rate 88 Pulse Rate [Left Finger] 72 83 Respiratory Rate 16 20 20 Respiratory Effort / Characteristics Non-Labored Non-Labored Respiratory Depth Normal Normal Blood Pressure 104/63 Blood Pressure [Left Arm] 102/63 127/78 Blood Pressure Mean 76 Blood Pressure Mean [Left Arm] 76 94 Pulse Oximetry 94 95 100 Oxygen Delivery Method Room Air Room Air 03/30/19 17:05 03/30/19 17:54 03/30/19 18:53 Temperature Temperature Source Sepsis Recent Fever Within 48 Hours Sepsis New/Unexplained Change in Mental Status Sepsis Action Taken by Nursing Pulse Rate Pulse Rate [Left Finger] 78 88 Respiratory Rate 20 20 Respiratory Effort / Characteristics Non-Labored Non-Labored Respiratory Depth Normal Normal Blood Pressure Blood Pressure [Left Arm] 121/68 114/78 Blood Pressure Mean Blood Pressure Mean [Left Arm] 85 90 Pulse Oximetry 96 97 Oxygen Delivery Method Room Air Room Air Room Air GENERAL: He is oriented to person, place, and time. He appears well-developed and well-nourished. He does not appear distressed. HENT: Exam performed. - Head: Normocephalic and atraumatic. - Right Ear: External ear normal. No mastoid tenderness. - Left Ear: External ear normal. No mastoid tenderness. - Mouth/Throat: The oropharynx is clear and moist. No trismus in the jaw. No dental abscesses or uvula swelling. No oropharyngeal exudate or tonsillar abscesses. EYES: Conjunctivae and EOM are normal. Pupils are equal, round, and reactive to light. Right eye exhibits no discharge. Left eye exhibits no discharge. No scleral icterus. NECK: Normal range of motion. Neck supple. No JVD present. No spinous process tenderness present. No carotid bruit present. No rigidity. No tracheal deviation and normal range of motion present. No Brudzinski's sign and no Kernig's sign noted. CV: Normal rate, regular rhythm, normal heart sounds and intact distal pulses. There is no peripheral edema. Palpable radial pulses bue. PULM/CHEST: Effort normal and breath sounds normal. No respiratory distress. No stridor. He has no wheezes. He has no rales. - Chest Wall: He exhibits no tenderness. ABD: The abdomen is soft. Bowel sounds are normal. He has no distension. No mass is present. There is no tenderness. There is no rebound, no guarding, no Owens's sign and no tenderness at McBurney's point. Rovsig negative. MUSC/SKEL: Normal range of motion. There is no peripheral edema, tenderness or deformity. LYMPH: No cervical adenopathy. NEURO: He is alert and oriented to person, place, and time. He has normal strength. No cranial nerve deficit or sensory deficit. Coordination and gait normal. GCS eye subscore is 4. GCS verbal subscore is 5. GCS motor subscore is 6. Cerebellar tests wnl. SKIN: Skin is warm and dry. He is not diaphoretic. PSYCH: He has a normal mood and affect. Behavior is normal. Judgment and thought content normal. Course 1335: The patient was evaluated in room C11B. A complete history and physical exam was performed. Pt was seen in ED on march 26 for abdominal pain after falling in shower. Hx of IBS and bowel obstruction. Blood work done on that visit showed a WC of 13.8. CT of abdomen showed mild nonobstructive ileus as well as wedged deformity of L1. 1430: Vital signs stable. Labs within normal limits. Patient's x-ray shows SBO vs. Ileus. 1650: Vital signs stable. CT shows small bowel obstruction. Patient does not complain of any abdominal pain at this time. I spoke with Dr. Jennings, [facility]. He agrees to evaluate the patient. Consultations Consultation #1: I spoke with Dr. Jennings, [facility]. He agrees to evaluate the patient. Time: 16:50 Administered Medications Ioversol (Optiray 320 100ml) 94 ml IV ONCE PRN PRN Reason: Interaction Checking Stop: 04/03/19 15:51 Last Admin: 03/30/19 15:52 Dose: 94 ml Documented by: [id number] Discontinued Medications Sodium Chloride (Nss 1000ml) 1,000 mls @ 999 mls/hr IV .Q1H1M ONE Stop: 03/30/19 14:33 Last Infusion: 03/30/19 15:39 Dose: 0 mls/hr Documented by: [id number] Admin: 03/30/19 14:00 Dose: 999 mls/hr Documented by: [id number] Medical Decision Making Medical Records Attestation: I reviewed the patient's medical records. Home Medications Current Medication List: was personally reviewed by me Laboratory Data Attestation: I reviewed the patient's lab results. Result diagrams: 03/30/19 13:42 03/30/19 13:42 Lab Results 03/30/19 03/30/19 Range/Units 13:42 13:42 WBC 5.05 (4.8-10.8) K/uL RBC 4.30 L (4.7-6.1) M/uL Hgb 12.7 L (14.0-18.0) g/dL Hct 36.9 L (42-52) % MCV 85.8 (80-100) fL MCH 29.5 (25-34) pg MCHC 34.4 (32-36) g/dL RDW Std Deviation 41.7 (36.4-46.3) fL RDW Coeff of Garrison 13.2 (11.5-14.5) % Plt Count 160 (130-400) K/uL MPV 9.8 (7.4-10.4) fL Immature Gran % (Auto) 0.2 % Neut % (Auto) 66.9 % Lymph % (Auto) 17.8 % [place] % (Auto) 11.3 % Eos % (Auto) 3.6 % Baso % (Auto) 0.2 % Immature Gran # (Auto) 0.01 (0.00-0.02) K/uL Neut # (Auto) 3.38 (1.4-6.5) K/uL Lymph # (Auto) 0.90 L (1.2-3.4) K/uL [place] # (Auto) 0.57 (0.11-0.59) K/uL Eos # (Auto) 0.18 (0-0.5) K/uL Baso # (Auto) 0.01 (0-0.2) K/uL Sodium 139 (136-145) mmol/L Potassium 3.8 (3.5-5.1) mmol/L Chloride 108 H (98-107) mmol/L Carbon Dioxide 26 (21-32) mmol/L Anion Gap 5.0 (3-11) BUN 18 (7-18) mg/dl Creatinine 0.61 (0.6-1.4) mg/dl Est Cr Clr Drug Dosing Not Reportable Est GFR ( Amer) 134.0 Est GFR (Non-Af Amer) 115.6 BUN/Creatinine Ratio 29.3 H (10-20) Glucose 80 (70-99) mg/dl Calcium 8.7 (8.5-10.1) mg/dl Total Bilirubin 0.8 (0.2-1) mg/dl Direct Bilirubin 0.3 H (0-0.2) mg/dl AST 13 L (15-37) U/L ALT 24 (12-78) U/L Alkaline Phosphatase 100 (45-117) U/L Total Protein 6.6 (6.4-8.2) gm/dl Albumin 2.7 L (3.4-5.0) gm/dl Lipase 39 L (73-393) U/L Imaging Data Radiologist's Impression: Radiology results as stated below per my review and the radiologist's interpretation: XR abdomen 2V w PA chest CLINICAL HISTORY: abdominal pain pain COMPARISON STUDY: 03/26/2019 FINDINGS: Bibasilar atelectasis. Lungs otherwise appear clear. Diaphragms are smooth. Old healed fracture right clavicle. Bowel pattern suggests small bowel ileus. Mild small bowel distention is present. I cannot entirely exclude the possibility of early partial small bowel obstruction. No secondary evidence for free air. Shunt catheter in position within the pelvis. IMPRESSION: 1. Mild bibasilar atelectasis. 2. Ileus versus partial small bowel obstruction. The above report was generated using voice recognition software. It may contain grammatical, syntax or spelling errors. Electronically signed by: Niraj Tariq M.D. 03/30/2019 2:[address] PM. A[address]OM[address] AND PEL[address] CT WITH IV CONTRAST CT DOSE: 702.82 mGy.cm HISTORY: Acute generalized abdominal pain with clinical concern for small bowel obstruction ro sbo TECHNIQUE: Multiaxial CT images of the abdomen and pelvis were performed following the use of intravenous contrast. A dose lowering technique was utilized adhering to the principles of ALARA. COMPARISON STUDY: CT abdomen and pelvis 03/26/2019 FINDINGS: Trace pleural effusions. Subsegmental bibasilar consolidative and groundglass opacities. No pneumatosis or pneumoperitoneum identified. Imaged inferior cardiac chambers are unremarkable. Ill-defined hypodense 1.9 x 1.7 cm lesion of the right hepatic lobe is unchanged, image 25 series 2 which is indeterminate. The spleen, gallbladder, pancreas and adrenal glands are unremarkable. Kidneys, and ureters are unremarkable. Wall thickening of the bladder with partial distention. Mild prostamegaly. Small fat filled bilateral inguinal hernias. No aortic aneurysm. There is moderate wall thickening of the rectum and sigmoid. Pars operative changes from prior partial sigmoid resection. Wall thickening is noted at the anastomotic site. Colonic diverticulosis without acute diverticulitis. Fluid- filled loops of large bowel are noted with air-fluid levels. Multiple dilated air-filled loops of small bowel are also noted measuring up to 4.2 cm transversely. Transitioned collapsed loops of small bowel are seen about the abdominal left lower quadrant demonstrating angular loops suggestive of obstruction secondary to adhesions. Small bowel wall thickening is also noted at several locations with associated interloop edema with trace abdominopelvic ascites. Mild generalized body wall edema. Degenerative changes of the spine. Mild anterior endplate wedging noted at the T11 and, T12 and L1 levels. Severe disc space narrowing at L4-L5. There is a catheter noted within the abdominal cavity, distal tip projected along the central inferior pelvis. IMPRESSION: 1. Multiple dilated air and fluid-filled loops of small bowel suggest small bowel obstruction with transitioned collapsed loops of small bowel seen within the abdominal left lower quadrant, likely secondary to underlying small bowel adhesions. Several loops of small bowel demonstrate associated wall thickening with interloop edema with trace reactive abdominal pelvic ascites. 2. No pneumatosis or pneumoperitoneum. 3. Postoperative changes from prior partial sigmoid colon resection. Wall thickening at the anastomosis, distal sigmoid and rectum suggestive of a nonspecific proctocolitis. Correlate clinically. 4. Colonic diverticulosis without acute diverticulitis. 5. Suggested diarrheal illness. 6. Trace bilateral pleural effusions with bibasilar opacities suggest atelectasis or pneumonitis. 7. Additional findings as above. Electronically signed by: Kd Ferrell M.D. 03/30/2019 4:20 PM Blood Pressure Blood Pressure Findings: Normal blood pressure Blood Pressure Disposition: further management by hospitalist [facility] Narrative 1335: The patient was evaluated in room C11B. A complete history and physical exam was performed. Pt was seen in ED on march 26 for abdominal pain after falling in shower. Hx of IBS and bowel obstruction. Blood work done on that visit showed a WC of 13.8. CT of abdomen showed mild nonobstructive ileus as well as wedged deformity of L1. 1430: Vital signs stable. Labs within normal limits. Patient's x-ray shows SBO vs. Ileus. 1650: Vital signs stable. CT shows small bowel obstruction. Patient does not complain of any abdominal pain at this time. I spoke with Dr. Jennings, [facility]. He agrees to evaluate the patient. Impression & Plan Small intestine obstruction Discharge Plan Visit Data Chief Complaint: Abdominal Pain Stated Complaint: ABD PAIN,CONSTIPATED ED Provider: Nav Rivera Discharge Problem: Small intestine obstruction Patient Disposition: Being Evaluated by Hospitalist Forms Stand Alone Forms: Call Back Authorization, My [facility] Prescriptions Prescriptions: No Action sertraline 50 mg tablet 50 mg PO QAM RF: 0 omeprazole 20 mg capsule,delayed release(DR/EC) 20 mg PO QAM RF: 0 celecoxib [Celebrex] 100 mg capsule 100 mg PO DAILY RF: 0 verapamil 180 mg capsule,ext rel. pellets 24 hr 180 mg PO QAM RF: 0 furosemide 20 mg tablet 20 mg PO DAILY PRN (Reason: SWELLING) RF: 0 pramipexole 1 mg tablet 1 mg PO TID RF: 0 pregabalin [Lyrica] 200 mg capsule 200 mg PO BID RF: 0 sennosides [senna] 8.6 mg Tablet 2 tab PO HS PRN (Reason: Constipation) RF: 0 hydrocodone-acetaminophen 5-325 mg Tablet 2 tab PO TID PRN (Reason: Pain) RF: 0 ciprofloxacin HCl 500 mg Tablet 500 mg PO BID RF: 0 lamotrigine 100 mg Tablet 200 mg PO BID RF: 0 DermaPhor Ointment 1 applic TOPICAL BID RF: 0 lamotrigine 25 mg Tablet 50 mg PO BID RF: 0 irbesartan 150 mg Tablet 150 mg PO DAILY RF: 0 hydroxyzine pamoate 25 mg Capsule 25 mg PO TID PRN (Reason: Itching) RF: 0 cholecalciferol (vitamin D3) [Vitamin D3] 5,000 unit Tablet 5,000 unit PO DAILY RF: 0 Referrals Referrals: Chriss OAKLEY [Primary Care Provider] - The scribe's documentation has been prepared under my direction and personally reviewed by me in its entirety. I confirm that the note above accurately reflects all work, treatment, procedures, and medical decision making performed by me.
[2019-03-30] MEDS ORDERED: ENALAPRILAT 1.25 MG in DEXTROSE 5% 25 ML IV SCH (19:36)
[2019-03-30] MEDS ORDERED: MoRPHine SULFATE 4 MG/ML 1 ML CARP\\VIAL IV PRN (19:36)
[2019-03-30] MEDS ORDERED: HydrALAZINE HCL 20 MG/ML VIAL IV PRN (19:36)
[2019-03-30] MEDS: FAMOTIDINE 20 MG in SYRINGE 3 ML IV SCH (21:21)
[2019-03-30] MEDS: ENALAPRILAT IV SCH (21:26)
[2019-03-30] MEDS: HEPARIN SOD 5,000 UNIT/0.5 ML VIAL SQ SCH (21:27)
[2019-03-30] MEDS: SODIUM CHLORIDE 0.9% 1000ML 1,000 ML IV SCH (21:31)
[2019-03-30] MEDS: PRAMIPEXOLE DIHYDROCHLO 0.5 MG TAB PO SCH (21:51)
[2019-03-30] MEDS: lamoTRIgine 25 MG TAB PO SCH (21:51)
[2019-03-30] MEDS: lamoTRIgine 100 MG TAB PO SCH (21:52)
[2019-03-30] MEDS: PREGABALIN 100 MG CAP PO SCH (21:52)
[2019-03-30] MEDS: MoRPHine SULFATE 2 MG/ML CARP IV PRN (22:03)
[2019-03-30] MEDS ORDERED: PNEUMOCOCCAL POLYSACCHARIDES 25 MCG/0.5 ML VIAL/SYR IM ONE (23:15)
[2019-03-30] MEDS ORDERED: PNEUMOCOCCAL ADMINISTRATION CHARGE ONE (23:15)
[2019-03-31] MEDS: SODIUM CHLORIDE 0.9% 1000ML 1,000 ML IV SCH (04:51)
[2019-03-31] MEDS: MoRPHine SULFATE 2 MG/ML CARP IV PRN ×2 (04:51→10:24)
[2019-03-31] MEDS: ENALAPRILAT IV SCH ×4 (06:08→23:52)
[2019-03-31 08:22] LABS: Hematocrit (blood only) 36.1 % (42-52); Hemoglobin 11.9 g/dL (14.0-18.0); Mean Corpuscular Volume 88.3 fL (80-100); Mean Platelet Volume 10.1 fL (7.4-10.4); Platelet Count 160 K/uL (130-400); RDW Coefficient of Variation 13.6 % (11.5-14.5); RDW Standard Deviation 43.8 fL (36.4-46.3); Red Blood Count 4.09 M/uL (4.7-6.1); White Blood Count 4.46 K/uL (4.8-10.8)
[2019-03-31 09:15] LABS: BUN Creatinine Ratio 28.7 (10-20); Calcium 8.3 mg/dl (8.5-10.1); Creatinine Clr Calc Pharmacy 165.4 ml/min; Est GFR (African American) 136.8; Est GFR (Non-African American) 118.1; Potassium 3.9 mmol/L (3.5-5.1)
[2019-03-31] MEDS ORDERED: DEXTROSE 50% 50 ML SYRINGE IV STA (09:28)
[2019-03-31] MEDS: D5W AND 1/2NSS 1,000 ML IV SCH ×2 (09:58→22:06)
[2019-03-31] MEDS: HEPARIN SOD 5,000 UNIT/0.5 ML VIAL SQ SCH ×2 (10:03→21:36)
[2019-03-31] MEDS: lamoTRIgine 100 MG TAB PO SCH ×2 (10:03→21:25)
[2019-03-31] MEDS: PRAMIPEXOLE DIHYDROCHLO 0.5 MG TAB PO SCH ×3 (10:04→21:25)
[2019-03-31] MEDS: lamoTRIgine 25 MG TAB PO SCH ×2 (10:04→21:25)
[2019-03-31] MEDS: PREGABALIN 100 MG CAP PO SCH ×2 (10:23→21:26)
[2019-03-31] MEDS: ONDANSETRON INJ 2 MG/ML 2 ML VIAL IV PRN (10:31)
[2019-03-31] MEDS ORDERED: CARBOHYDRATES FOR HYPOGLYCEMIA PO PRN (10:45)
[2019-03-31] MEDS ORDERED: GLUCOSE 10 TABS/TUBE PO PRN (10:45)
[2019-03-31] MEDS ORDERED: GLUCOSE 40% GEL 15 GM TUBE PO PRN (10:45)
[2019-03-31] MEDS ORDERED: DEXTROSE 50% 50 ML SYRINGE IV PRN (10:45)
[2019-03-31] MEDS ORDERED: GLUCAGON FOR INJ 1 MG VIAL IM PRN (10:45)
[2019-03-31] MEDS: FAMOTIDINE 20 MG in SYRINGE 3 ML IV SCH ×2 (11:20→21:26)
--- NOTE | 2019-03-31 13:19 | Progress Note ---
Date of Service March 31, 2019 Assessment & Plan (1) Small bowel obstruction: will check CT early am tomorrow and assess progression through bowel may consider operation if fails Subjective intermittent pain- min from NG tube Physical Exam Physical Exam: some distention- has decreased bowel sounds Results & Data Vital Signs (Past 12 Hours) Vital Signs Temp Pulse Resp BP Pulse Ox 03/31/19 11:32 96 03/31/19 07:45 36.5 C 72 16 127/62 98 03/31/19 06:07 71 110/68
[2019-03-31] MEDS: INSULIN ASPART 100 UNITS/ML 3 ML PEN SC SCH ×2 (13:24→19:52)
[2019-03-31] MEDS: HYDROmorphone INJ 1 MG/ML SYRINGE IV PRN ×3 (15:54→23:52)
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
[2019-04-01] MEDS: INSULIN ASPART 100 UNITS/ML 3 ML PEN SC SCH ×5 (00:58→23:54)
[2019-04-01] MEDS: ONDANSETRON INJ 2 MG/ML 2 ML VIAL IV PRN ×2 (03:22→12:35)
[2019-04-01] MEDS: HYDROmorphone INJ 1 MG/ML SYRINGE IV PRN ×3 (04:11→12:30)
[2019-04-01] MEDS ORDERED: IOVERSOL 100ml IV PRN (05:25)
[2019-04-01] MEDS: ENALAPRILAT IV SCH ×2 (05:39→12:08)
[2019-04-01] MEDS ORDERED: MINERAL OIL 30 ML UDC PO ONE (06:27)
[2019-04-01] MEDS ORDERED: SENNA 8.8 MG/5 ML UDP PO PRN (06:27)
[2019-04-01] MEDS ORDERED: DEXTROSE 10% 1,000 ML IV SCH (06:30)
--- NOTE | 2019-04-01 06:37 | Progress Note ---
Date of Service April 01, 2019 Assessment & Plan (1) Partial small bowel obstruction: CT = contrast traverses area of partial obstruction- likely associated with scar tissue/ adhesions and also SECTION BEAMER shunt seems to traverse this area which would be in jeopardy with operation- bowel resection. will try NG clamping, possible liquids tomorrow Ppn, may need picc at some point Possible surgery Thursday if fails- I tentatively added to OR sched in case Dr Peralta following over weekend Subjective no acute chgs- CT done - see assessment Physical Exam Physical Exam: no distress- NG clear light bilious output abd soft- has active bs Results & Data Vital Signs (Past 12 Hours) Vital Signs Temp Pulse Pulse Resp BP Pulse Ox 04/01/19 05:28 67 120/78 03/31/19 23:46 36.7 C 70 16 120/74 96 03/31/19 19:43 82 117/71
[2019-04-01 06:45] LABS: Hematocrit (blood only) 36.2 % (42-52); Hemoglobin 12.2 g/dL (14.0-18.0); Mean Corpuscular Hgb Conc 33.7 g/dL (32-36); Mean Corpuscular Volume 87.7 fL (80-100); Mean Platelet Volume 9.8 fL (7.4-10.4); Platelet Count 158 K/uL (130-400); RDW Coefficient of Variation 13.3 % (11.5-14.5); RDW Standard Deviation 43.2 fL (36.4-46.3); Red Blood Count 4.13 M/uL (4.7-6.1); White Blood Count 5.16 K/uL (4.8-10.8)
[2019-04-01 07:24] LABS: BUN Creatinine Ratio 17.1 (10-20); Calcium 8.5 mg/dl (8.5-10.1); Creatinine Clr Calc Pharmacy 168.3 ml/min; Est GFR (African American) 137.8; Est GFR (Non-African American) 118.9; Potassium 3.9 mmol/L (3.5-5.1)
--- NOTE | 2019-04-01 07:38 | CT Scan Report ---
ABDOMEN AND PELVIS CT WITH IV AND ORAL CONTRAST CT DOSE: 762.70 mGy.cm HISTORY: Small bowel obstruction. Follow-up. SBO- contrast via NG TECHNIQUE: Multiaxial CT images of the abdomen and pelvis were performed following the use of intrave nous and oral contrast. A dose lowering technique was utilized adhering to the principles of ALARA. COMPARISON STUDY: Abdomen and pelvis CT 03/30/2019. FINDINGS: Patchy and linear bibasilar densities have progressed. A nasogastric tube terminates in the postpyloric position. Trace bilateral pleural effusions have slightly increased in size. No pneumope ritoneum. No pneumatosis. No fractures within the visualized osseous structures. Mild periportal sherrie a. There is a stable 1.9 x 1.7 cm hypodense lesion within the periphery of the right hepatic lobe. Th e spleen, adrenal glands, pancreas, and kidneys are unremarkable. No hydronephrosis. No retroperitone al lymphadenopathy. There is a percutaneous drain entering the epigastric region, tracking along the left side the abdomen, and terminating within the right lower quadrant. Bladder is decompressed which may account for the bladder wall thickening. Evidence for anastomosis at the sigmoid colon. There is mild thickening of the distal sigmoid colon and rectum. There is also mild thickening within the sma ll bowel loops in the deep pelvis. This is similar to the prior study. A few scattered colonic divert icula. There is trace ascites. Multiple mildly dilated small bowel loops within the left side the abd omen. However, contrast extends through the small bowel loops. Therefore, this favors a partial small bowel obstruction with the transition point located within the left lower quadrant at the thickened loops of bowel. This is similar to the prior study. IMPRESSION: 1. No significant change in the multiple mildly dilated loops of small bowel within the left side of the abdomen. This is consistent with a low-grade partial small bowel obstruction with the transition point within the left lower quadrant secondary to the thickened loops of small bowel. 2. No change in the thickened distal sigmoid colon/rectum which is distal to the anastomosis. This is consistent with a nonspecific proctocolitis. 3. Trace bilateral pleural effusions and bibasilar densities have progressed. 4. Nasogastric tube terminates in a postpyloric position. 5. Additional findings as described above. Electronically signed by: Iglesia Harris M.D. 04/01/2019 7:37 AM
[2019-04-01] MEDS: lamoTRIgine 25 MG TAB PO SCH ×2 (08:29→21:41)
[2019-04-01] MEDS: PRAMIPEXOLE DIHYDROCHLO 0.5 MG TAB PO SCH ×3 (08:29→21:42)
[2019-04-01] MEDS: lamoTRIgine 100 MG TAB PO SCH ×2 (08:30→21:41)
[2019-04-01] MEDS ORDERED: TPN/PPN CONSULT PHARMACY PRN (09:05)
[2019-04-01 09:39] LABS: Phosphorus 2.8 mg/dl (2.5-4.9)
[2019-04-01] MEDS: PREGABALIN 100 MG CAP PO SCH ×2 (10:59→21:42)
[2019-04-01] MEDS: FAMOTIDINE 20 MG in SYRINGE 3 ML IV SCH ×2 (11:00→21:42)
[2019-04-01] MEDS: HEPARIN SOD 5,000 UNIT/0.5 ML VIAL SQ SCH ×2 (11:00→21:39)
[2019-04-01] MEDS: D5W AND 1/2NSS 1,000 ML IV SCH (11:09)
[2019-04-01] MEDS ORDERED: CHLORASEPTIC 1.4% SOLN 180 ML BTL MT PRN (13:32)
[2019-04-01] MEDS ORDERED: ENALAPRILAT IV PRN (14:17)
[2019-04-01] MEDS ORDERED: NALOXONE HCL 0.4 MG/1 ML VIAL/CARP IV PRN (14:22)
[2019-04-01] MEDS ORDERED: methylPREDNISolone 40 MG in SYRINGE 0 ML IV ONE (14:30)
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
[2019-04-01] MEDS: HYDROmorphone HCL 0.5MG/ML 50 ML CASSETTE IV PRN (15:05)
[2019-04-01] MEDS: SODIUM CHLORIDE 0.9% 1000ML 1,000 ML IV SCH ×2 (15:06→22:13)
[2019-04-01] MEDS ORDERED: CUSTOM PERIPHERAL PN IV SCH (16:00)
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
[2019-04-02] MEDS: ONDANSETRON INJ 2 MG/ML 2 ML VIAL IV PRN ×3 (01:21→22:09)
[2019-04-02] MEDS ORDERED: COUGH DROP (SUGAR FREE) LOZ 24 LOZ/1 BOX BUCCAL PRN (03:35)
[2019-04-02] MEDS: INSULIN ASPART 100 UNITS/ML 3 ML PEN SC SCH ×4 (06:20→20:53)
[2019-04-02] MEDS: HEPARIN SOD 5,000 UNIT/0.5 ML VIAL SQ SCH ×2 (09:33→20:22)
[2019-04-02] MEDS: lamoTRIgine 25 MG TAB PO SCH ×2 (09:35→20:24)
[2019-04-02] MEDS: FAMOTIDINE 20 MG in SYRINGE 3 ML IV SCH ×2 (09:35→20:24)
[2019-04-02] MEDS: PREGABALIN 100 MG CAP PO SCH ×2 (09:36→20:24)
[2019-04-02] MEDS: lamoTRIgine 100 MG TAB PO SCH ×2 (09:36→20:24)
[2019-04-02] MEDS: PRAMIPEXOLE DIHYDROCHLO 0.5 MG TAB PO SCH ×3 (09:37→20:24)
[2019-04-02 09:45] LABS: Hematocrit (blood only) 33.9 % (42-52); Hemoglobin 11.7 g/dL (14.0-18.0); Mean Corpuscular Hgb Conc 34.5 g/dL (32-36); Mean Corpuscular Volume 86.9 fL (80-100); Platelet Count 176 K/uL (130-400); RDW Coefficient of Variation 13.4 % (11.5-14.5); RDW Standard Deviation 42.4 fL (36.4-46.3); White Blood Count 6.57 K/uL (4.8-10.8)
[2019-04-02 10:17] LABS: BUN Creatinine Ratio 12.2 (10-20); Calcium 8.5 mg/dl (8.5-10.1); Creatinine Clr Calc Pharmacy 165.4 ml/min; Est GFR (African American) 136.8; Est GFR (Non-African American) 118.1; Magnesium 2.2 mg/dl (1.8-2.4); Phosphorus 2.6 mg/dl (2.5-4.9); Potassium 3.8 mmol/L (3.5-5.1)
--- NOTE | 2019-04-02 11:47 | Surgery Progress Note ---
Date of Service April 02, 2019 Assessment & Plan (1) Partial small bowel obstruction: Small bowel obstruction - contrast traverses through area on CT but remains bloated, abdominal pain while having bowel movement. Will trial clamping ng tube today. Ok to have ice cream and liquids. If he gets nauseated, would unclamp ng and return to previous schedule. Tentatively on OR schedule for Thursday if remains with partial obstruction and inability to advance diet. No new acute surgical issues. Present on Admission?: Yes Subjective Had a bowel movement. Still feels bloated with sharp/ knife like pain while having bowel movement. 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 Requesting ice cream. On a pattern of ng clamp 4 hrs, suction 2 hrs, clear liquids. nursing noting this is difficult due to timing of meds. Physical Exam Respiratory: normal respiratory effort, lungs clear to auscultation Cardiovascular: RRR, no murmur, no edema Gastrointestinal (Abdomen): Inspection/Auscultation: + abdomen distended Percussion/Palpation: + abdomen tender (mild, no rebound or guarding) and abdomen soft has bowel tones Neurologic: moves all extremities; no focal motor deficits Psychiatric: A+Ox3, euthymic affect Results & Data Vital Signs (Past 12 Hours) Vital Signs Temp Pulse Pulse Resp BP Pulse Ox 04/02/19 07:21 36.7 C 62 18 142/86 H 98 04/02/19 04:11 36.6 C 62 18 115/74 98 04/02/19 00:06 37.4 C 61 16 120/66 92
[2019-04-02] MEDS ORDERED: CUSTOM PERIPHERAL PN IV SCH (16:00)
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
[2019-04-03] MEDS: ONDANSETRON INJ 2 MG/ML 2 ML VIAL IV PRN ×2 (07:37→22:05)
[2019-04-03 07:59] LABS: Hematocrit (blood only) 36.1 % (42-52); Mean Corpuscular Hgb Conc 33.2 g/dL (32-36); Mean Corpuscular Volume 88.3 fL (80-100); Mean Platelet Volume 9.9 fL (7.4-10.4); Platelet Count 207 K/uL (130-400); RDW Coefficient of Variation 13.5 % (11.5-14.5); RDW Standard Deviation 43.3 fL (36.4-46.3); Red Blood Count 4.09 M/uL (4.7-6.1); White Blood Count 7.08 K/uL (4.8-10.8)
[2019-04-03 08:23] LABS: BUN Creatinine Ratio 8.9 (10-20); Calcium 8.5 mg/dl (8.5-10.1); Creatinine Clr Calc Pharmacy 152.3 ml/min; Est GFR (African American) 132.2; Est GFR (Non-African American) 114.1; Potassium 4.1 mmol/L (3.5-5.1)
[2019-04-03 08:28] LABS: Phosphorus 3.6 mg/dl (2.5-4.9)
[2019-04-03] MEDS: lamoTRIgine 100 MG TAB PO SCH ×2 (09:34→22:06)
[2019-04-03] MEDS: PRAMIPEXOLE DIHYDROCHLO 0.5 MG TAB PO SCH ×3 (09:35→22:06)
[2019-04-03] MEDS: HEPARIN SOD 5,000 UNIT/0.5 ML VIAL SQ SCH ×2 (09:35→22:17)
[2019-04-03] MEDS: lamoTRIgine 25 MG TAB PO SCH ×2 (09:35→22:06)
[2019-04-03] MEDS: INSULIN ASPART 100 UNITS/ML 3 ML PEN SC SCH ×4 (09:36→22:17)
[2019-04-03] MEDS: FAMOTIDINE 20 MG in SYRINGE 3 ML IV SCH ×2 (09:41→22:05)
[2019-04-03] MEDS: PREGABALIN 100 MG CAP PO SCH ×2 (09:41→22:06)
--- NOTE | 2019-04-03 10:22 | Surgery Progress Note ---
Date of Service April 03, 2019 Assessment & Plan (1) Partial small bowel obstruction: Small bowel obstruction - contrast traverses through area on CT but remains bloated, abdominal pain while having bowel movement. Did not do well with clamping of ng tube yesterday. Now back on suction. Tentatively on OR schedule for Thursday if remains with partial obstruction and inability to advance diet. Will make npo after midnight for possible surgery tomorrow. [facility] ([phone] and spoke to a nurse who communicated with warehouse shift supervisor. Explained that surgery was potentially high risk and it is reasonable for him to talk to his prior to undergoing surgery. I was told they would contact the officers to communicate it was OK for him to call his . No new acute surgical issues. Subjective Did not do well with the small amount of ice cream yesterday. Tolerated clamping for about 1/2 day but then needed to be put back to suction at evening because of increase in pain and nausea. No further bowel movement since the one yesterday am. Still passing small amounts of flatus but getting intermittent sharp pain. Requesting phone call to his prior to going to surgery tomorrow. Review of Systems Review of Systems: All systems reviewed & are unremarkable except as noted in HPI & below Physical Exam Respiratory: normal respiratory effort, lungs clear to auscultation Cardiovascular: RRR, no murmur, no edema Gastrointestinal (Abdomen): Inspection/Auscultation: + abdomen distended and + hypoactive bowel sounds Percussion/Palpation: + abdomen tender (mild) and abdomen soft; no guarding Neurologic: moves all extremities; no focal motor deficits Psychiatric: A+Ox3, euthymic affect Results & Data Vital Signs (Past 12 Hours) Vital Signs Temp Pulse Resp BP Pulse Ox 04/03/19 07:31 37.3 C 70 16 136/83 96 04/03/19 03:33 36.7 C 64 15 121/79 99 04/02/19 22:57 37.2 C 76 16 127/86 96
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
[2019-04-03] MEDS ORDERED: CUSTOM PERIPHERAL PN IV SCH (16:00)
[2019-04-04] MEDS ORDERED: Nursing to Pharmacy Communication ONE ×2 (02:11→07:28)
[2019-04-04] MEDS: INSULIN ASPART 100 UNITS/ML 3 ML PEN SC SCH ×3 (05:55→18:20)
[2019-04-04] MEDS: PREGABALIN 100 MG CAP PO SCH ×2 (07:50→21:42)
[2019-04-04] MEDS: HEPARIN SOD 5,000 UNIT/0.5 ML VIAL SQ SCH (07:50)
[2019-04-04] MEDS: PRAMIPEXOLE DIHYDROCHLO 0.5 MG TAB PO SCH ×3 (07:50→21:31)
[2019-04-04] MEDS: lamoTRIgine 25 MG TAB PO SCH ×2 (07:50→21:29)
[2019-04-04] MEDS: lamoTRIgine 100 MG TAB PO SCH ×2 (07:50→21:30)
--- NOTE | 2019-04-04 08:08 | History & Physical Bridge Note ---
Date of Service April 04, 2019 History & Physical Bridge Note I have examined the patient, reviewed the History & Physical and in the interval since the performance of the History & Physical I have noted the following changes of clinical significance: no changes noted
[2019-04-04 08:28] LABS: BUN Creatinine Ratio 10.9 (10-20); Calcium 8.4 mg/dl (8.5-10.1); Creatinine Clr Calc Pharmacy 145.4 ml/min; Est GFR (African American) 129.7; Est GFR (Non-African American) 111.9; Magnesium 2.1 mg/dl (1.8-2.4); Phosphorus 3.6 mg/dl (2.5-4.9); Potassium 4.3 mmol/L (3.5-5.1)
[2019-04-04] MEDS: FAMOTIDINE 20 MG in SYRINGE 3 ML IV SCH ×2 (08:42→21:43)
[2019-04-04] MEDS ORDERED: cefOXitin 2,000 MG in DEXTROSE 5% 50 ML IV SCH (09:00)
--- NOTE | 2019-04-04 10:52 | Anesthesiology Consultation ---
Date of Service April 04, 2019 Assessment & Plan (1) Encounter for pre-operative examination: Chart Review Chart Review: Acceptable Risk for Surgery and Patient NOT seen in Pre Admission Testing Consults Requested none ASA ASA3 History Surgery Operation Date: 04/04/19 11:05 Proposed Procedures p Laparotomy, Lysis of Adhesions for Bowel Obstruction - Nik Graham MD, FACS Height/Weight Height: 6 ft 0.01 in Weight: 82.554 kg Allergies Allergy/AdvReac Type Severity Reaction Status Date / Time codeine Allergy Unknown Gastrointestinal Verified 03/30/19 14:20 Upset methadone Allergy Unknown SCI LIST Verified 03/30/19 14:20 Penicillins Allergy Unknown SCI LIST Verified 03/30/19 14:20 quetiapine Allergy Unknown SCI LIST Verified 03/30/19 14:20 Fnyxyzi-Pop-Wfa Reductase Allergy Unknown SCI LIST Verified 03/30/19 14:20 Inhibitor tetracycline Allergy Unknown SCI LIST Verified 03/30/19 14:20 Medications Home Medications Medication Instructions Recorded Confirmed Last Taken pramipexole 1 mg tablet 1 mg PO TID 08/16/18 03/30/19 03/26/19 11:00 pregabalin 200 mg capsule 200 mg PO BID 08/16/18 03/30/19 03/26/19 07:00 celecoxib 100 mg capsule 100 mg PO DAILY cap 02/24/19 03/30/19 03/26/19 07:00 furosemide 20 mg tablet 20 mg PO DAILY PRN 02/24/19 03/30/19 03/26/19 07:00 omeprazole 20 mg capsule,delayed 20 mg PO QAM 02/24/19 03/30/19 03/26/19 07:00 release sertraline 50 mg tablet 50 mg PO QAM 02/24/19 03/30/19 03/26/19 07:00 verapamil ER 180 mg 24 hr 180 mg PO QAM 02/24/19 03/30/19 03/26/19 07:00 capsule,extended release cholecalciferol (vitamin D3) 5,000 unit PO DAILY 03/26/19 03/30/19 03/26/19 07:00 [Vitamin D3] hydroxyzine pamoate 25 mg PO TID PRN 03/26/19 03/30/19 03/26/19 11:49 irbesartan 150 mg PO DAILY 03/26/19 03/30/19 03/26/19 07:00 lamotrigine 50 mg PO BID 03/26/19 03/30/19 03/26/19 07:00 mineral oil-hydrophil petrolat 1 applic TOPICAL BID 03/26/19 03/30/19 03/26/19 07:00 [DermaPhor] ciprofloxacin HCl 500 mg PO BID 03/30/19 03/30/19 Unknown hydrocodone-acetaminophen 2 tab PO TID PRN 03/30/19 03/30/19 Unknown lamotrigine 200 mg PO BID 03/30/19 03/30/19 Unknown sennosides [senna] 2 tab PO HS PRN 03/30/19 03/30/19 Unknown Active Medications Generic Name Dose Route Start Last Admin Trade Name Freq PRN Reason Stop Dose Admin Heparin Sodium (Porcine) 5,000 units 03/30/19 21:00 04/04/19 07:50 Heparin Sodium (Porcine) SQ 04/29/19 20:59 Not Given Q12 SONIA Hydromorphone HCl 0 mg 04/01/19 14:13 04/01/19 15:05 Dilaudid Bulldozer Press Operator IV 04/15/19 14:12 25 mg PRN PRN Administration Pain Protocol Famotidine 20 mg/ Syringe 5 mls @ 2.5 mls/min 03/30/19 21:00 04/04/19 08:42 IV 04/29/19 20:59 2.5 mls/min BID SONIA Administration Sodium Chloride 1,000 mls @ 15 mls/hr 04/01/19 14:30 04/04/19 06:00 Nss 1000ml IV 04/15/19 14:22 15 mls/hr .Q24H SONIA Infusion Insulin Aspart 0 units 04/04/19 06:00 04/04/19 05:55 Novolog Flexpen SC 05/04/19 05:59 Not Given Q6 SONIA Ioversol 100 ml 04/01/19 05:25 04/01/19 05:25 Optiray 320 100ml IV 04/05/19 05:24 93 ml ONCE PRN Administration Interaction Checking Lamotrigine 50 mg 03/30/19 21:00 04/04/19 07:50 Lamictal PO 04/29/19 20:59 Not Given BID SONIA Lamotrigine 200 mg 03/30/19 21:00 04/04/19 07:50 Lamictal PO 04/29/19 20:59 Not Given BID SONIA Menthol 1 gonzalo 04/02/19 03:35 04/02/19 04:03 Nice BUCCAL 05/02/19 03:34 1 gonzalo UD PRN Administration Sore Throat Nutrition (Parenteral) 1 bag 04/03/19 16:00 04/03/19 16:52 Custom Peripheral Pn IV 04/04/19 15:59 1 bag TODAY@1600 SONIA Administration Protocol Ondansetron HCl 4 mg 03/30/19 19:36 04/03/19 22:05 Zofran IV 04/29/19 19:35 4 mg Q6H PRN Administration Nausea Phenol 1 sprays 04/01/19 13:32 04/01/19 14:47 Chloraseptic 1.4% [place] 05/01/19 13:31 1 sprays PRN PRN Administration Sore Throat Pramipexole Dihydrochloride 1 mg 03/30/19 21:00 04/04/19 07:50 Mirapex PO 04/29/19 20:59 Not Given TID [facility] Pregabalin 200 mg 03/30/19 21:00 04/04/19 07:50 Lyrica PO 04/29/19 20:59 Not Given BID [facility] Sennosides 8.8 mg 04/01/19 06:27 04/01/19 07:07 Senokot PO 05/01/19 06:26 8.8 mg BID PRN Administration Constipation NPO Date Last Intake of Fluids: 04/03/19 Time Last Intake of Fluids: 23:00 Date Last Intake of Solids: 03/29/19 Time Last Intake of Solids: 02:00 Past Medical History Medical History Hydrocephalus (Resolved) PER PT VERBAL REPORT Narcolepsy (Chronic) PER PT REPORT Hx MRSA infection (Chronic) Seizure (Resolved) Adult antisocial behavior (Chronic) GERD (gastroesophageal reflux disease) (Chronic) Asthma (Chronic) Multiple sclerosis (Chronic) Sleep apnea (Chronic) Insomnia (Chronic) Anxiety (Chronic) Bipolar disorder (Chronic) Vitamin D deficiency (Chronic) Cannabis abuse (Chronic) Restless legs syndrome (Chronic) Charcot foot due to diabetes mellitus (Chronic) Diabetic neuropathy (Chronic) HTN (hypertension) (Chronic) Bowel obstruction IBS (irritable bowel syndrome) Past Surgical History Surgical History S/P colostomy (Resolved) S/P colostomy takedown (Resolved) S/P hernia repair (Resolved) S/P tonsillectomy (Resolved) S/P foot surgery (Resolved) S/P SCIENCE JOB TITLES shunt (Resolved) S/P brain surgery (Resolved) Social History Smoking Status: Current every day smoker tobacco type: cigarettes Smoking cigarettes per day: 10 Do You Dip or Chew Tobacco: No Hx Alcohol Use: No Hx Substance Use: No substance use type: former substance user Substance Use Type Other:: USED "ABOUT EVERYTHING IN THE " Physical Exam Vital Signs Last Vital Signs Temp 37.1 C 04/04/19 10:05 Pulse 63 04/04/19 10:05 Resp 18 04/04/19 10:05 BP 121/74 04/04/19 10:05 Pulse Ox 95 04/04/19 10:05 Testing Laboratory Results 04/03/19 07:21 04/04/19 07:11 04/04/19 05:52 POC Glucose 85
[2019-04-04] MEDS ORDERED: ATROPINE SULFATE 0.1 MG/ML 10ML SYR IV PRN (10:56)
[2019-04-04] MEDS ORDERED: ePHEDrine sulfate 50 MG/ML AMP IV PRN (10:56)
[2019-04-04] MEDS ORDERED: HYDROmorphone INJ 1 MG/ML SYRINGE IV PRN ×2 (10:56→14:24)
[2019-04-04] MEDS ORDERED: fentaNYL citrate 100 MCG/2 ML VIAL ONE ×2 (11:00→12:55)
[2019-04-04] MEDS ORDERED: PROPOFOL IV EMULSION 10 MG/ML 20 ML VIAL IV ONE (11:00)
[2019-04-04] MEDS ORDERED: ROCURONIUM BROMIDE 10 MG/ML 5 ML VIAL ONE (11:00)
[2019-04-04] MEDS ORDERED: MIDAZOLAM HCL 1 MG/ML 2ML VIAL ONE (11:00)
[2019-04-04] MEDS ORDERED: LIDOCAINE HCL 2% 2 ML VIAL/AMP(20MG/ML) INFIL ONE (11:00)
[2019-04-04] MEDS ORDERED: GLYCOPYRROLATE 0.2 MG/ML VIAL ONE ×3 (11:56→12:39)
[2019-04-04] MEDS ORDERED: NEOSTIGMINE METHYLSULFATE 5 MG/5 ML SYR ONE (12:39)
[2019-04-04] MEDS ORDERED: ONDANSETRON INJ 2 MG/ML 2 ML VIAL ONE (12:40)
[2019-04-04] MEDS ORDERED: ACETAMINOPHEN 1,000 MG/100 ML VIAL IV ONE (13:03)
--- NOTE | 2019-04-04 13:03 | Operative Report ---
Post Operative Report Pre & Post Diagnosis Operation Date: 04/04/19 11:05 Pre-Op Diagnosis: Small Bowel Obstruction Post-Op Diagnosis: Small Bowel Obstruction, Adhesions Procedure Operation Date: 04/04/19 11:05 Actual Procedures p Exploratory Laparotomy, Lysis of Adhesions (Not Applicable) - Nik Graham MD, FACS enterolysis Surgeon Nik Graham MD, FACS Seed Cutter Iker Joseph Estimated Blood Loss 20 Findings Consistent with Post-Op Diagnosis Specimens none Description of Procedure inflammation and adhesions from shunt catheter causing severe inflammation of small bowel I attest to the content of the Intraoperative Record and any orders documented therein. Any exceptions are noted below.
[2019-04-04] MEDS: HYDROmorphone HCL 0.5MG/ML 50 ML CASSETTE IV PRN (13:30)
[2019-04-04] MEDS ORDERED: HYDROmorphone INJ 0.5 MG/0.5 ML SYR IV PRN (14:24)
[2019-04-04] MEDS ORDERED: PROMETHAZINE HCL 25 MG in SODIUM CHLORIDE 0.9% 50 ML IV PRN (14:24)
[2019-04-04] MEDS ORDERED: ONDANSETRON INJ 2 MG/ML 2 ML VIAL IV PRN (14:24)
[2019-04-04] MEDS ORDERED: PROMETHAZINE HCL 12.5 MG in SODIUM CHLORIDE 0.9% 50 ML IV PRN (14:24)
--- NOTE | 2019-04-04 14:36 | Anesthesiology Progress Note ---
Date of Service April 04, 2019 Anesthesia Post Procedure Vital Signs Vital Signs: Temp Pulse Pulse Pulse Resp BP BP 04/04/19 14:33 37.0 C 68 16 109/66 04/04/19 14:00 61 19 108/61 04/04/19 13:52 36.6 C 61 17 110/58 L 04/04/19 13:40 63 18 115/64 04/04/19 13:30 63 16 102/63 04/04/19 13:20 62 16 108/59 L 04/04/19 13:14 36.3 C L 65 17 106/58 L 04/04/19 10:05 37.1 C 63 18 121/74 04/04/19 07:33 37.0 C 65 16 103/65 04/04/19 03:53 36.7 C 71 16 117/68 04/03/19 23:20 37.1 C 71 18 112/72 04/03/19 19:17 37.0 C 76 19 115/69 04/03/19 16:27 135/87 04/03/19 16:00 37.1 C 76 18 161/96 H Pulse Ox 04/04/19 14:33 94 04/04/19 14:00 99 04/04/19 13:52 98 04/04/19 13:40 93 04/04/19 13:30 100 04/04/19 13:20 96 04/04/19 13:14 99 04/04/19 10:05 95 04/04/19 07:33 97 04/04/19 03:53 93 04/03/19 23:20 93 04/03/19 19:17 97 04/03/19 16:27 04/03/19 16:00 97 Pain Intensity Abdomen: Pain Intensity: 10 Bilateral Head: Pain Intensity: 8 Transfer of Care Handoff Completed per policy Notes Mental Status: alert / awake / arousable Patient Amnestic to Procedure: Yes Nausea / Vomiting: adequately controlled Pain: adequately controlled Airway Patency, RR, SpO2: stable & adequate BP & HR: stable & adequate Hydration State: stable & adequate Anesthetic Complications: no major complications apparent and Pt Satisfied with anesthetic care
[2019-04-04] MEDS: SODIUM CHLORIDE 0.9% 1000ML 1,000 ML IV SCH ×2 (14:37→14:42)
[2019-04-04 15:35] LABS: Partial Thromboplastin Time 27.9 Seconds (21.0-31.0)
[2019-04-04] MEDS ORDERED: CUSTOM PERIPHERAL PN IV SCH (16:00)
--- NOTE | 2019-04-04 20:05 | Operative Report ---
DATE OF OPERATION: 04/04/2019 NAME OF OPERATION: Laparotomy with enterolysis of adhesions. PREOPERATIVE DIAGNOSIS: Small-bowel obstruction. POSTOPERATIVE DIAGNOSIS: Small-bowel obstruction. STAFF SURGEON: Dr. Nik Graham. ENGINEERING PRODUCTION LIAISON: Ayush Joseph PA-C. ANESTHESIA: General. PROCEDURE: The patient was brought in the operating room and placed on the operating table in supine position. Higgins catheter, orogastric tube, pneumatic stockings were placed. His abdomen was prepped and draped in usual fashion. Incision was made just above and below the umbilicus, carrying dissection down through scar tissue from prior surgery entering the abdomen. I did encounter adhesions of the small bowel and omentum. These were taken down and then I was able to trace the small bowel. It appeared the jejunum was adherent on the left side of the abdomen and into the pelvis in the area of the METAL BUMPER shunt with severe thickening and inflammation around the area of the shunt causing the acute adhesions which caused a small-bowel obstruction. These adhesions were lysed both sharply and bluntly. The small bowel did show some evidence of chronic adhesions with severe scar tissue, but these were mobilized and I did not require any small bowel resection. The small bowel was traced from the ligament of Treitz to the ileum. There was one area of really severe density in the pelvis; however, I was able to mobilize this and the small bowel did not need to be resected. The catheter had been down in the pelvis. I do not feel that it was appropriate to place it around the small bowel again. Therefore, it was rerouted into the Right upper quadrant. There appeared to 2 exit points of fluid from the catheter in the distal and approximately 5-6 inches apart. At this point, the abdomen was irrigated with antibiotic solution. A large #1 nylon retention sutures were placed and then the fascia closed using both running and interrupted #1 PDS suture. A Wilbraham drain placed in the subcutaneous space, secured to the skin using 3-0 nylon suture, 2-0 plain suture used to loosely reapproximate the subcutaneous tissue and then the skin reapproximated using joaquin and 3-0 nylon. The retention sutures were secured and the patient was transferred to recovery room in stable condition. A nasogastric tube was placed. There was no evidence of abscess or infection I attest to the content of the Intraoperative Record and any orders documented therein. Any exceptions are noted below. MTDD
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
[2019-04-05] MEDS: INSULIN ASPART 100 UNITS/ML 3 ML PEN SC SCH ×4 (00:07→18:50)
[2019-04-05 05:34] LABS: Basophils # (auto) 0.02 K/uL (0-0.2); Basophils % (auto) 0.2 %; Eosinophils # (auto) 0.01 K/uL (0-0.5); Eosinophils % (auto) 0.1 %; Hematocrit (blood only) 38.4 % (42-52); Hemoglobin 13.6 g/dL (14.0-18.0); Immature Granulocytes # (auto) 0.09 K/uL (0.00-0.02); Immature Granulocytes % (auto) 0.7 %; Lymphocytes # (auto) 1.14 K/uL (1.2-3.4); Lymphocytes % (auto) 8.6 %; Mean Corpuscular Hgb Conc 35.4 g/dL (32-36); Mean Corpuscular Volume 85.3 fL (80-100); Mean Platelet Volume 9.8 fL (7.4-10.4); Monocytes # (auto) 1.03 K/uL (0.11-0.59); Monocytes % (auto) 7.7 %; Neutrophils # (auto) 11.03 K/uL (1.4-6.5); Neutrophils % (auto) 82.7 %; Platelet Count 270 K/uL (130-400); RDW Coefficient of Variation 13.3 % (11.5-14.5); RDW Standard Deviation 41.3 fL (36.4-46.3); White Blood Count 13.32 K/uL (4.8-10.8)
[2019-04-05 05:55] LABS: Albumin Level 2.5 gm/dl (3.4-5.0); BUN Creatinine Ratio 14.1 (10-20); Calcium 8.3 mg/dl (8.5-10.1); Creatinine Clr Calc Pharmacy 121.4 ml/min; Est GFR (African American) 120.5; Magnesium 2.1 mg/dl (1.8-2.4); Potassium 4.1 mmol/L (3.5-5.1)
[2019-04-05 05:58] LABS: Albumin Globulin Ratio 0.7 (0.9-2); Bilirubin,Total 0.4 mg/dl (0.2-1); Globulin 3.6 gm/dl (2.5-4.0); Phosphorus 3.5 mg/dl (2.5-4.9); Total Protein 6.1 gm/dl (6.4-8.2)
--- NOTE | 2019-04-05 07:41 | Progress Note ---
Date of Service April 05, 2019 Assessment & Plan (1) Partial small bowel obstruction: pt had severely thickened small bowel from inflammation related to catheter/ fluid- no abscess noted- will likely be slow to resume GI activity- leave NG at least 1 more day- cont PPN, may need Picc and Tpn depending on progress mobility also a problem- another limitation. Need to research follow up with neurosurg ?[facility] for catheter management Subjective overall stable- min NG output Physical Exam Physical Exam: awake, alert abd- mild distention, decreased bowel sounds Results & Data Vital Signs (Past 12 Hours) Vital Signs Temp Pulse Resp BP Pulse Ox 04/05/19 07:04 37.3 C 76 16 127/77 95 04/05/19 03:35 37.1 C 75 16 118/70 93 04/04/19 22:59 36.9 C 77 20 114/66 90
[2019-04-05] MEDS: lamoTRIgine 100 MG TAB PO SCH ×2 (08:23→21:27)
[2019-04-05] MEDS: lamoTRIgine 25 MG TAB PO SCH ×2 (08:24→21:27)
[2019-04-05] MEDS: PREGABALIN 100 MG CAP PO SCH ×2 (08:24→21:49)
[2019-04-05] MEDS: PRAMIPEXOLE DIHYDROCHLO 0.5 MG TAB PO SCH ×3 (08:24→21:27)
[2019-04-05] MEDS: FAMOTIDINE 20 MG in SYRINGE 3 ML IV SCH ×2 (08:25→21:25)
[2019-04-05] MEDS: HEPARIN SOD 5,000 UNIT/0.5 ML VIAL SQ SCH ×2 (08:26→21:25)
[2019-04-05] MEDS: HYDROmorphone HCL 0.5MG/ML 50 ML CASSETTE IV PRN (11:20)
[2019-04-05] MEDS ORDERED: CUSTOM PERIPHERAL PN IV SCH (16:00)
[2019-04-05] MEDS: SODIUM CHLORIDE 0.9% 1000ML 1,000 ML IV SCH (16:46)
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
[2019-04-06] MEDS: INSULIN ASPART 100 UNITS/ML 3 ML PEN SC SCH ×4 (00:41→18:14)
[2019-04-06] MEDS ORDERED: MINERAL OIL 30 ML UDC PO ONE (06:18)
--- NOTE | 2019-04-06 06:22 | Progress Note ---
Date of Service April 06, 2019 Assessment & Plan (1) Partial small bowel obstruction: will try to d/c NG- trial of po- ice/popsicles first try some reglan- d/c stevenson. If po fails may consider picc/Tpn Subjective vitals stable- no emesis- has clear gastric NG drainage- nonbilious good ur output- has stevenson Physical Exam Physical Exam: abd sof- decreased bowel sounds Results & Data Vital Signs (Past 12 Hours) Vital Signs Temp Pulse Resp BP Pulse Ox 04/06/19 03:28 36.9 C 72 16 119/72 96 04/05/19 23:28 37.1 C 76 20 110/68 94
[2019-04-06] MEDS: METOCLOPRAMIDE HCL INJ 5 MG/ML 2 ML VIAL IV SCH ×3 (06:37→19:11)
[2019-04-06 06:39] LABS: INR 1.1 (0.9-1.1); Prothrombin Time 11.4 Seconds (9.0-12.0)
[2019-04-06 06:59] LABS: BUN Creatinine Ratio 14.4 (10-20); Calcium 8.8 mg/dl (8.5-10.1); Creatinine Clr Calc Pharmacy 111.6 ml/min; Est GFR (African American) 116.4; Est GFR (Non-African American) 100.4; Potassium 4.7 mmol/L (3.5-5.1)
[2019-04-06] MEDS: PRAMIPEXOLE DIHYDROCHLO 0.5 MG TAB PO SCH ×3 (08:38→21:03)
[2019-04-06] MEDS: lamoTRIgine 100 MG TAB PO SCH ×2 (08:38→21:03)
[2019-04-06] MEDS: lamoTRIgine 25 MG TAB PO SCH ×2 (08:38→21:03)
[2019-04-06] MEDS: FAMOTIDINE 20 MG in SYRINGE 3 ML IV SCH ×2 (08:39→21:03)
[2019-04-06] MEDS: HEPARIN SOD 5,000 UNIT/0.5 ML VIAL SQ SCH ×2 (08:39→21:00)
[2019-04-06] MEDS: PREGABALIN 100 MG CAP PO SCH ×2 (08:44→21:10)
[2019-04-06] MEDS: SODIUM CHLORIDE 0.9% 1000ML 1,000 ML IV SCH (14:03)
[2019-04-06] MEDS: HYDROmorphone HCL 0.5MG/ML 50 ML CASSETTE IV PRN ×3 (15:23→23:17)
[2019-04-06] MEDS: LORazepam 1 MG/2 ML VIAL IV PRN (15:54)
[2019-04-06] MEDS ORDERED: CUSTOM PERIPHERAL PN IV SCH (16:00)
--- NOTE | 2019-04-06 21:43 | Hospitalist Progress Note ---
Date of Service April 06, 2019 Assessment & Plan (1) Small bowel obstruction: POD #2 - s/p exploratory laparotomy on 04/04/[address] Graham with lysis of adhesions and release of SBO. Currently on PPN. NG tube d/c today. Dr Graham to allow sips of clears. 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 with several revisions since no signs/symptoms of shunt malfunction (4) Low back pain: worse since a recent fall at the [facility] with T11, T12, L1 modest compression fractures (5) Non-healing wound: right knee - from recent fall - local wound care (6) Seizure: lamictal BID no issues (7) HTN (hypertension): controlled (8) Restless leg: Mirapex and Lyrica ativan prn (9) DVT prophylaxis: Heparin q12h Subjective NG tube d/c today passing minimal amount of flatus c/o back pain c/o abd pain asks when he will be allowed to eat/drink Review of Systems Constitutional: no fever Respiratory: no dyspnea Cardiovascular: no chest pain Physical Exam Constitutional: well developed and well nourished; no acute distress, not ill appearing and no altered mental status ENMT: external ear and nose normal, oropharynx normal Respiratory: normal respiratory effort, lungs clear to auscultation Cardiovascular: RRR, no murmur, no edema Heart Sounds: normal S1 and normal S2 Vessels: posterior tibial pulses present and dorsalis pedis pulses present; no JVD Gastrointestinal (Abdomen): Inspection/Auscultation: + abdomen distended; + abnormal bowel sounds (decreased) Percussion/Palpation: + abdomen tender (incisional); no hepatosplenomegaly Psychiatric: A+Ox3, euthymic affect Results & Data Vital Signs (Past 12 Hours) Vital Signs Temp Pulse Resp BP Pulse Ox 04/06/19 20:19 37.1 C 79 16 107/65 93 04/06/19 16:02 37 C 85 16 107/65 93 04/06/19 11:39 36.5 C 85 18 108/68 93 (1) Low back pain Chronicity: acute Back pain laterality: unspecified Sciatica presence: unspecified whether sciatica present Qualified Code(s): M54.5 - Low back pain (2) Hydrocephalus Hydrocephalus type: unspecified Qualified Code(s): G91.9 - Hydrocephalus, unspecified (3) HTN (hypertension) Hypertension type: essential hypertension Qualified Code(s): I10 - Essential (primary) hypertension
[2019-04-07] MEDS: LORazepam 1 MG/2 ML VIAL IV PRN ×3 (00:05→23:53)
[2019-04-07] MEDS: INSULIN ASPART 100 UNITS/ML 3 ML PEN SC SCH ×4 (00:51→19:41)
[2019-04-07] MEDS: METOCLOPRAMIDE HCL INJ 5 MG/ML 2 ML VIAL IV SCH ×5 (02:02→23:52)
[2019-04-07 06:58] LABS: BUN Creatinine Ratio 25.3 (10-20); Calcium 8.6 mg/dl (8.5-10.1); Creatinine Clr Calc Pharmacy 137.1 ml/min; Est GFR (African American) 126.6; Est GFR (Non-African American) 109.3; Phosphorus 3.5 mg/dl (2.5-4.9)
--- NOTE | 2019-04-07 07:14 | Progress Note ---
Date of Service April 07, 2019 Assessment & Plan (1) Partial small bowel obstruction: Will try some full liquids- if fails trial , will need picc line and Tpn, NG tube- will also check abd film as baseline , although, pt may need 1-2 weeks bowel rest if unable to take po Subjective no emesis, sm amt flatus concentrated urine Physical Exam Physical Exam: awake , alert abd - some distention, decreased bowel sounds, non tender Results & Data Vital Signs (Past 12 Hours) Vital Signs Temp Pulse Pulse Resp BP Pulse Ox 04/07/19 03:53 36.6 C 78 18 133/80 94 04/07/19 03:34 71 16 96 04/07/19 00:32 78 20 96 04/06/19 23:25 36.4 C L 72 18 121/72 96 04/06/19 22:27 83 19 95 04/06/19 20:19 37.1 C 79 16 107/65 93
[2019-04-07] MEDS: HYDROmorphone HCL 0.5MG/ML 50 ML CASSETTE IV PRN ×3 (07:15→19:39)
[2019-04-07 07:53] LABS: Potassium 4.1 mmol/L (3.5-5.1)
[2019-04-07 07:55] LABS: Magnesium 2.2 mg/dl (1.8-2.4)
[2019-04-07] MEDS: lamoTRIgine 25 MG TAB PO SCH ×2 (08:09→21:54)
[2019-04-07] MEDS: PRAMIPEXOLE DIHYDROCHLO 0.5 MG TAB PO SCH ×3 (08:10→21:54)
[2019-04-07] MEDS: lamoTRIgine 100 MG TAB PO SCH ×2 (08:10→21:54)
[2019-04-07] MEDS: HEPARIN SOD 5,000 UNIT/0.5 ML VIAL SQ SCH ×2 (08:11→21:49)
--- NOTE | 2019-04-07 08:22 | XRay Report ---
XR abdomen 2V w PA chest CLINICAL HISTORY: h/o sbo, lysis of adhesions COMPARISON STUDY: 03/30/2019 FINDINGS: A ventriculoperitoneal shunt catheter is visualized. There is an old right pelvic fracture. Postsurgical changes are present within the cervical spine. There are linear basilar opacities consi stent with atelectasis. There is no free air. There are multiple dilated small bowel loops measuring up to 6 cm. There is gas present within nondilated colon. IMPRESSION: Increasing small bowel dilatation, consistent with a small bowel obstruction or postsurg ical ileus. Clinical and radiographic follow-up is recommended. No evidence of free air. Electronically signed by: Cody Cr M.D. 04/07/2019 8:21 AM
[2019-04-07] MEDS: PREGABALIN 100 MG CAP PO SCH ×2 (08:46→21:54)
[2019-04-07] MEDS: FAMOTIDINE 20 MG in SYRINGE 3 ML IV SCH ×2 (09:28→21:54)
[2019-04-07] MEDS: SODIUM CHLORIDE 0.9% 1000ML 1,000 ML IV SCH (13:47)
[2019-04-07] MEDS ORDERED: CUSTOM PERIPHERAL PN IV SCH (16:00)
[2019-04-08] MEDS: INSULIN ASPART 100 UNITS/ML 3 ML PEN SC SCH ×4 (03:53→18:15)
[2019-04-08] MEDS: METOCLOPRAMIDE HCL INJ 5 MG/ML 2 ML VIAL IV SCH ×3 (04:44→18:19)
[2019-04-08] MEDS: LORazepam 1 MG/2 ML VIAL IV PRN ×3 (05:33→20:10)
[2019-04-08] MEDS ORDERED: DEXTROSE 10% 1,000 ML IV SCH (06:30)
--- NOTE | 2019-04-08 06:50 | Progress Note ---
Date of Service April 08, 2019 Assessment & Plan (1) Partial small bowel obstruction: will switch to tpn for more calories/ protein some increased GI function- would limit po exc ice for now. may consider advancing diet tomorrow- had dilated sm bowel on film. overall some slow progress Subjective had at least 2 liquid bms picc line placed rec ativan which seems to help Physical Exam Physical Exam: drowsy, abd- less distended and has more bowel sounds Results & Data Vital Signs (Past 12 Hours) Vital Signs Temp Pulse Pulse Resp BP Pulse Ox 04/07/19 23:27 37.1 C 77 14 126/75 97 04/07/19 22:22 78 18 93
[2019-04-08] MEDS ORDERED: TPN/PPN CONSULT PHARMACY PRN (06:55)
--- NOTE | 2019-04-08 07:43 | Hospitalist Progress Note ---
Date of Service late entry for visit on 04/07/19 Assessment & Plan (1) Small bowel obstruction: s/p exploratory laparotomy on 04/[address] Graham with lysis of adhesions. POD #3. Currently on PPN for nutrition. Spoke with Dr Graham today - feels that patient's bowel function may not return for some time. Thus, PICC consent obtained for PICC line. Then start TPN in lan of PPN. Defer surgical management to Dr Graham. 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 had CT recently that showed ventricles normal size there was inflammation around the shunt during the laparotomy but no gross infection no headaches or other neuro symptoms to suggest shunt malfunction (4) Low back pain: no complaints of pain today (5) Non-healing wound: right knee - stable from a previous fall (6) Seizure: Lamictal 250 mg twice a day no seizures while here (7) HTN (hypertension): controlled (8) Restless leg: Mirapex and Lyrica ativan prn consider Fe studies while here (9) DVT prophylaxis: Heparin SC q12h Subjective patient with minimal passage of flatus mild nausea abd bloating today requests that we keep his ativan in place for "restless legs" Review of Systems Constitutional: no fever Respiratory: no dyspnea Cardiovascular: no chest pain Gastrointestinal: + abdominal pain, + bloating and + nausea Physical Exam Constitutional: + ill appearing and average body habitus; no acute distress ENMT: external ear and nose normal, oropharynx normal Respiratory: normal respiratory effort, lungs clear to auscultation Auscultation: + rales (minimal - dry - bases) Cardiovascular: Rate/Rhythm: regular rate and regular rhythm Heart Sounds: normal S1 and normal S2; no murmur Vessels: posterior tibial pulses present and dorsalis pedis pulses present; no JVD Gastrointestinal (Abdomen): Inspection/Auscultation: + abdomen distended; + abnormal bowel sounds (decreased) Percussion/Palpation: + abdomen tender; no guarding, abdomen not rigid and no hepatosplenomegaly Skin: abd wall incisions clean/dry Psychiatric: A+Ox3, euthymic affect Results & Data Vital Signs (Past 12 Hours) Vital Signs Temp Pulse Pulse Resp BP Pulse Ox 04/07/19 23:27 37.1 C 77 14 126/75 97 04/07/19 22:22 78 18 93 Laboratory Results Laboratory Results - last 24 hr 04/07/19 04/07/19 04/07/19 07:09 08:08 12:11 Potassium 4.1 POC Glucose 103 H 92 Magnesium 2.2 04/07/19 04/07/19 04/08/19 19:26 23:29 06:05 Potassium POC Glucose 103 H 105 H 107 H Magnesium (1) Hydrocephalus Hydrocephalus type: unspecified Qualified Code(s): G91.9 - Hydrocephalus, unspecified (2) Low back pain Chronicity: chronic Back pain laterality: unspecified Sciatica presence: unspecified whether sciatica present Qualified Code(s): M54.5 - Low back pain; G89.29 - Other chronic pain (3) HTN (hypertension) Hypertension type: essential hypertension Qualified Code(s): I10 - Essential (primary) hypertension
[2019-04-08] MEDS: lamoTRIgine 25 MG TAB PO SCH ×2 (08:31→20:27)
[2019-04-08] MEDS: lamoTRIgine 100 MG TAB PO SCH ×2 (08:31→20:28)
[2019-04-08] MEDS: PRAMIPEXOLE DIHYDROCHLO 0.5 MG TAB PO SCH ×3 (08:32→20:27)
[2019-04-08] MEDS: HEPARIN SOD 5,000 UNIT/0.5 ML VIAL SQ SCH ×2 (08:33→20:25)
[2019-04-08] MEDS: PREGABALIN 100 MG CAP PO SCH ×2 (08:44→20:27)
[2019-04-08 09:32] LABS: Basophils # (auto) 0.02 K/uL (0-0.2); Basophils % (auto) 0.2 %; Eosinophils # (auto) 0.32 K/uL (0-0.5); Eosinophils % (auto) 2.7 %; Hematocrit (blood only) 38.8 % (42-52); Hemoglobin 13.2 g/dL (14.0-18.0); Immature Granulocytes # (auto) 0.08 K/uL (0.00-0.02); Immature Granulocytes % (auto) 0.7 %; Lymphocytes # (auto) 1.44 K/uL (1.2-3.4); Lymphocytes % (auto) 11.9 %; Mean Corpuscular Volume 86.2 fL (80-100); Mean Platelet Volume 10.4 fL (7.4-10.4); Monocytes # (auto) 1.22 K/uL (0.11-0.59); Monocytes % (auto) 10.1 %; Neutrophils # (auto) 8.98 K/uL (1.4-6.5); Neutrophils % (auto) 74.4 %; Platelet Count 317 K/uL (130-400); RDW Coefficient of Variation 13.4 % (11.5-14.5); RDW Standard Deviation 42.3 fL (36.4-46.3); White Blood Count 12.06 K/uL (4.8-10.8)
[2019-04-08] MEDS: FAMOTIDINE 20 MG in SYRINGE 3 ML IV SCH ×2 (09:54→21:56)
[2019-04-08 10:09] LABS: BUN Creatinine Ratio 21.6 (10-20); Calcium 8.5 mg/dl (8.5-10.1); Creatinine Clr Calc Pharmacy 143.2 ml/min; Est GFR (African American) 128.9; Est GFR (Non-African American) 111.3; Potassium 3.8 mmol/L (3.5-5.1)
--- NOTE | 2019-04-08 13:44 | CT Scan Report ---
CT lumbar spine wo con CT DOSE: 717.17 mGy.cm HISTORY: Trauma. Pain. RLE radiculopathy; recent fall TECHNIQUE: Multiaxial CT images of the lumbar spine were performed and reformatted in the sagittal an d coronal plane without the use of contrast. A dose lowering technique was utilized adhering to the principles of ALARA. COMPARISON: 08/28/2017 FINDINGS: Mild compression deformity superior endplate L1 considerable old. This is unchanged compare d to the prior study. Significant degenerative disc change L4-L5 with anterior and posterior osteophytic change. This is un altered compared to the prior exam. No evidence for new or interval finding. Posterior elements appear to be intact. IMPRESSION: 1. No acute process of the lumbar spine. 2. Mild compression deformity superior endplate L1 considerable old and unchanged compared to 2017. 3. Considerable degenerative disc change L4-L5. The above report was generated using voice recognition software. It may contain grammatical, syntax or spelling errors. Electronically signed by: Niraj Tariq M.D. 04/08/2019 1:42 PM
[2019-04-08] MEDS: SODIUM CHLORIDE 0.9% 1000ML 1,000 ML IV SCH (14:07)
[2019-04-08] MEDS: LIDOCAINE 5% 1 PATCH TD SCH (14:21)
[2019-04-08] MEDS: HYDROmorphone HCL 0.5MG/ML 50 ML CASSETTE IV PRN ×2 (15:12→19:14)
[2019-04-08] MEDS ORDERED: CUSTOM CENTRAL PN IV SCH (16:00)
--- NOTE | 2019-04-08 19:08 | Hospitalist Progress Note ---
Date of Service April 08, 2019 Assessment & Plan (1) Small bowel obstruction: s/p exploratory laparotomy on 04/[address] Graham with lysis of adhesions. POD #4. s/p PICC line placement with initiation of TPN. Continue TPN. Diet per Dr Graham. labs in am. (2) Lumbar back pain with radiculopathy affecting right lower extremity: right leg symptoms likely radicular in nature from lumbar spine. in light of recent fall will obtain lumbar spine CT to exclude cord lesions, additional compression fractures, etc. 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 either way will check a vitamin D level. pain control. could consider back brace. (6) Seizure: Lamictal 250 mg twice a day no seizures while here (7) HTN (hypertension): controlled (8) Restless leg: Mirapex and Lyrica ativan prn (9) DVT prophylaxis: Heparin SC q12h Subjective patient tolerating clears has had bowel movements and flatus main complaint today is that of right leg pain -- describes it as "electric shock" that starts in proximal right leg and travels down the right lateral leg below the knee worse since a fall 2 weeks ago at the correction denies weakness of either leg no vomiting Review of Systems Constitutional: no fever Respiratory: no cough and no dyspnea Cardiovascular: no chest pain Gastrointestinal: + abdominal pain; no nausea and no vomiting Physical Exam Constitutional: average body habitus; no acute distress ENMT: external ear and nose normal, oropharynx normal Respiratory: normal respiratory effort, lungs clear to auscultation Cardiovascular: Rate/Rhythm: regular rate and regular rhythm Heart Sounds: normal S1 and normal S2; no murmur Vessels: posterior tibial pulses present and dorsalis pedis pulses present; no JVD Gastrointestinal (Abdomen): Inspection/Auscultation: + abdomen distended and normal bowel sounds (improved bowel sounds today) Percussion/Palpation: + abdomen tender (incisions); no guarding, abdomen not rigid and no hepatosplenomegaly Neurologic: strength 5/5 both legs; DTRs 1-2+ b/l Psychiatric: A+Ox3, euthymic affect Results & Data Vital Signs (Past 12 Hours) Vital Signs Temp Pulse Resp BP Pulse Ox 04/08/19 15:30 37.1 C 80 16 111/67 91 (1) Hydrocephalus Hydrocephalus type: unspecified Qualified Code(s): G91.9 - Hydrocephalus, unspecified (2) HTN (hypertension) Hypertension type: essential hypertension Qualified Code(s): I10 - Essential (primary) hypertension
[2019-04-09] MEDS: METOCLOPRAMIDE HCL INJ 5 MG/ML 2 ML VIAL IV SCH ×4 (00:04→19:15)
[2019-04-09] MEDS: LORazepam 1 MG/2 ML VIAL IV PRN ×3 (01:42→19:11)
[2019-04-09] MEDS: INSULIN ASPART 100 UNITS/ML 3 ML PEN SC SCH ×5 (06:08→21:30)
[2019-04-09 07:04] LABS: Potassium 3.8 mmol/L (3.5-5.1)
[2019-04-09 07:05] LABS: BUN Creatinine Ratio 25.6 (10-20); Est GFR (African American) 127.4; Est GFR (Non-African American) 109.9; Magnesium 1.9 mg/dl (1.8-2.4); Phosphorus 2.9 mg/dl (2.5-4.9)
--- NOTE | 2019-04-09 07:09 | Progress Note ---
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, cont Ativan Cont Tpn- likely several days still concerned about bowel function/ edema also- he has recently been seen at [place] for his shunt management (not [facility] where he had prior mgt ) Subjective awake , alert- Tm38.1, temp normal this am loose bm with flatus doesn't like walking to bathroom, wants continuous DRYING ROOM OPERATOR, rec ativan Physical Exam Physical Exam: less distended, decreased bowel sounds Results & Data Vital Signs (Past 12 Hours) Vital Signs Temp Pulse Pulse Pulse Resp BP Pulse Ox 04/09/19 03:11 37.2 C 04/09/19 03:10 38.1 C H 97 H 16 113/67 94 04/08/19 23:31 37.3 C 98 H 16 131/67 93 04/08/19 22:16 84 20 96 04/08/19 20:48 37.5 C 83 16 110/64 93
[2019-04-09] MEDS: lamoTRIgine 100 MG TAB PO SCH ×2 (11:13→21:28)
[2019-04-09] MEDS: lamoTRIgine 25 MG TAB PO SCH ×2 (11:15→21:29)
[2019-04-09] MEDS: LIDOCAINE 5% 1 PATCH TD SCH (11:17)
[2019-04-09] MEDS: HEPARIN SOD 5,000 UNIT/0.5 ML VIAL SQ SCH ×2 (11:18→21:28)
[2019-04-09] MEDS: PRAMIPEXOLE DIHYDROCHLO 0.5 MG TAB PO SCH ×3 (11:19→21:29)
[2019-04-09] MEDS: FAMOTIDINE 20 MG in SYRINGE 3 ML IV SCH ×2 (11:52→21:31)
[2019-04-09] MEDS: PREGABALIN 100 MG CAP PO SCH ×2 (11:52→21:27)
[2019-04-09] MEDS: SODIUM CHLORIDE 0.9% 1000ML 1,000 ML IV SCH (13:50)
[2019-04-09] MEDS ORDERED: CUSTOM CENTRAL PN IV SCH (16:00)
[2019-04-09] MEDS ORDERED: Nursing to Pharmacy Communication ONE (17:05)
--- NOTE | 2019-04-09 20:44 | Hospitalist Progress Note ---
Date of Service April 09, 2019 Assessment & Plan (1) Small bowel obstruction: s/p exploratory laparotomy on 04/[address] Graham with lysis of adhesions. POD #5. Tolerating full liquids. Continue TPN. Diet per Dr Graham. Again check labs in am. (2) Lumbar back pain with radiculopathy affecting right lower extremity: right leg symptoms likely due to DJD at L4-L5 as seen on CT. already takes lyrica bid. could consider increasing to tid dosing. ideally should be on NSAID. continue pain medications. 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 check vit D level in am. pain control. could consider back brace. (6) Seizure: lamictal BID no issues (7) HTN (hypertension): controlled (8) Restless leg: Mirapex and Lyrica ativan prn controlled (9) DVT prophylaxis: Heparin q12h will obtain PT, OT evals due to recent falls Subjective patient tolerating full liquids still having stools and flatus TPN continues right leg and back pain are unchanged no new issues Review of Systems Respiratory: no dyspnea Cardiovascular: no chest pain Gastrointestinal: + abdominal pain; no nausea, no vomiting and no blood in stools Physical Exam Constitutional: well developed, well nourished and average body habitus; no acute distress and no altered mental status ENMT: external ear and nose normal, oropharynx normal Respiratory: normal respiratory effort, lungs clear to auscultation Cardiovascular: RRR, no murmur, no edema Heart Sounds: normal S1 and normal S2 Vessels: posterior tibial pulses present and dorsalis pedis pulses present; no JVD Gastrointestinal (Abdomen): Inspection/Auscultation: + abdomen distended and normal bowel sounds Percussion/Palpation: abdomen nontender, no guarding, abdomen not rigid and no hepatosplenomegaly Skin: dressings intact to abdominal wall Psychiatric: A+Ox3, euthymic affect Results & Data Vital Signs (Past 12 Hours) Vital Signs Temp Pulse Resp BP Pulse Ox 04/09/19 15:15 36.6 C 89 16 120/72 90 Laboratory Results Laboratory Results - last 24 hr 04/08/19 04/09/19 04/09/19 23:56 06:02 06:15 Sodium 135 L Potassium 3.8 Chloride 103 Carbon Dioxide 28 Anion Gap 4.0 BUN 18 Creatinine 0.69 Est Cr Clr Drug Dosing 139.0 Est GFR ( Amer) 127.4 Est GFR (Non-Af Amer) 109.9 BUN/Creatinine Ratio 25.6 H Glucose 114 H POC Glucose 88 116 H Calcium 8.0 L Phosphorus 2.9 Magnesium 1.9 04/09/19 04/09/19 12:17 17:16 Sodium Potassium Chloride Carbon Dioxide Anion Gap BUN Creatinine Est Cr Clr Drug Dosing Est GFR ( Amer) Est GFR (Non-Af Amer) BUN/Creatinine Ratio Glucose POC Glucose 105 H 107 H Calcium Phosphorus Magnesium (1) Hydrocephalus Hydrocephalus type: unspecified Qualified Code(s): G91.9 - Hydrocephalus, unspecified (2) HTN (hypertension) Hypertension type: essential hypertension Qualified Code(s): I10 - Essential (primary) hypertension
[2019-04-10] MEDS: LORazepam 1 MG/2 ML VIAL IV PRN ×3 (02:56→16:17)
[2019-04-10] MEDS: METOCLOPRAMIDE HCL INJ 5 MG/ML 2 ML VIAL IV SCH ×4 (06:01→18:56)
[2019-04-10] MEDS: HYDROmorphone HCL 0.5MG/ML 50 ML CASSETTE IV PRN ×3 (06:54→23:01)
--- NOTE | 2019-04-10 07:19 | Progress Note ---
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 tomorrow Subjective sruthi full liquids- no nausea Tpn cont Physical Exam Physical Exam: abd - some distention- good bowel sounds Results & Data Vital Signs (Past 12 Hours) Vital Signs Temp Pulse Pulse Resp BP Pulse Ox 04/10/19 06:50 37.7 C H 93 H 15 116/69 92 04/10/19 04:32 37.4 C 04/10/19 03:53 37.8 C H 90 18 113/69 93 04/09/19 23:50 37 C 04/09/19 22:30 37.7 C H 90 18 116/66 94 04/09/19 22:26 71 20 94
[2019-04-10 08:36] LABS: Hematocrit (blood only) 31.4 % (42-52); Hemoglobin 10.6 g/dL (14.0-18.0); Mean Corpuscular Hgb Conc 33.8 g/dL (32-36); Mean Corpuscular Volume 85.8 fL (80-100); Platelet Count 249 K/uL (130-400); RDW Coefficient of Variation 13.4 % (11.5-14.5); RDW Standard Deviation 42.4 fL (36.4-46.3); Red Blood Count 3.66 M/uL (4.7-6.1); White Blood Count 9.71 K/uL (4.8-10.8)
[2019-04-10] MEDS: LIDOCAINE 5% 1 PATCH TD SCH (08:55)
[2019-04-10] MEDS: PRAMIPEXOLE DIHYDROCHLO 0.5 MG TAB PO SCH ×3 (08:56→22:32)
[2019-04-10] MEDS: lamoTRIgine 25 MG TAB PO SCH ×2 (08:56→22:32)
[2019-04-10] MEDS: lamoTRIgine 100 MG TAB PO SCH ×2 (08:57→22:32)
[2019-04-10 09:02] LABS: Basophils # (auto) 0.02 K/uL (0-0.2); Basophils % (auto) 0.2 %; Eosinophils # (auto) 0.24 K/uL (0-0.5); Eosinophils % (auto) 2.5 %; Immature Granulocytes # (auto) 0.05 K/uL (0.00-0.02); Immature Granulocytes % (auto) 0.5 %; Lymphocytes # (auto) 0.63 K/uL (1.2-3.4); Lymphocytes % (auto) 6.5 %; Monocytes # (auto) 1.57 K/uL (0.11-0.59); Monocytes % (auto) 16.2 %; Neutrophils % (auto) 74.1 %
[2019-04-10] MEDS: FAMOTIDINE 20 MG in SYRINGE 3 ML IV SCH ×2 (09:07→22:41)
[2019-04-10] MEDS: HEPARIN SOD 5,000 UNIT/0.5 ML VIAL SQ SCH ×2 (09:08→22:29)
[2019-04-10] MEDS: PREGABALIN 100 MG CAP PO SCH ×2 (09:08→22:32)
[2019-04-10] MEDS: INSULIN ASPART 100 UNITS/ML 3 ML PEN SC SCH ×4 (09:09→22:32)
[2019-04-10 09:12] LABS: BUN Creatinine Ratio 29.4 (10-20); Est GFR (Non-African American) 122.5; Magnesium 1.9 mg/dl (1.8-2.4); Phosphorus 2.4 mg/dl (2.5-4.9); Potassium 3.6 mmol/L (3.5-5.1)
--- NOTE | 2019-04-10 10:30 | Pharmacy Report ---
PHA: Parenteral Nutrition Con - Date of Service April 10, 2019 - Scope Pharmacy was consulted on 04/01 to manage parenteral nutrition orders for this patient. - Subjective The patient is currently on day 10 of central parenteral nutrition for SBO - Objective Height: 6 ft 0.01 in Weight: 86.7 kg Diet: Clear Liquid Intake & Output (24hrs):: Intake & Output 04/08/19 04/09/19 04/10/19 04/11/19 06:59 06:59 06:59 06:59 Intake Total 819.000 / 819.000 181 / 181 855.75 / 855.75 Output Total 1100 / 1100 626 / 626 626 / 626 Balance -281.000 / -281.000 -445 / -445 229.75 / 229.75 Weight 84.8 kg 86.7 kg Laboratory Data (Last 24 Hr):: 04/10/19 08:28 Sodium 137 Potassium 3.6 Chloride 103 Carbon Dioxide 29 BUN 16 Creatinine 0.53 L Glucose 108 H Calcium 8.0 L Phosphorus 2.4 L Magnesium 1.9 Nutrition Assessment:: Please refer to the Notes section of the EMR for the most recent improvement advisor note. - Assessment Patient continues of day 10 of central nutrition, converted from PPN to TPN on 04/08. Patient has been started on full liquid diet. F: TPN @ 100 ml/hr E: K trending down 3.6 mmol/L today- increase K in tpn; Phos- 2.4 mg/dL today- increase today N: Full liquid diet ordered- will not titrate calories in tpn up today due to decrease in electrolytes/advancement of oral diet - Plan For day 10 of PN administration, the following will be ordered: Macronutrients Amino acids 125 grams/day Dextrose 225 grams/day Lipids 50 grams/day Micronutrients Sodium phosphate 12 MMol Sodium chloride 125 mEq- Cl:Acetate balanced 50% Sodium acetate 65 mEq Potassium phosphate 30 mMol - increase Potassium chloride 30 mEq- increase Magnesium sulfate 8.12 mEq Calcium gluconate 4.65 mEq Multivitamins 10 mL Trace Elements 1 mL Total volume 2400 mL to be infused over 24 hrs will provide 1795 kcal/day /L) Labs, as indicated, will be ordered per protocol Pharmacy will continue to follow and adjust parenteral nutrition orders on a daily basis. Thank you for allowing us to participate in the care of this patient.
[2019-04-10] MEDS: CHOLECALCIFEROL 1,000 UNITS TAB PO SCH (11:31)
[2019-04-10] MEDS: POT PHOSPHATE MONOBASIC W/ SOD TAB PO SCH ×3 (13:43→22:32)
[2019-04-10] MEDS: SODIUM CHLORIDE 0.9% 1000ML 1,000 ML IV SCH (13:43)
[2019-04-10] MEDS ORDERED: CUSTOM CENTRAL PN IV SCH (16:00)
--- NOTE | 2019-04-10 19:31 | Hospitalist Progress Note ---
Date of Service April 10, 2019 Assessment & Plan (1) Small bowel obstruction: s/p exploratory laparotomy on 04/04/[address] Graham with lysis of adhesions. POD #6. Tolerating full liquids. Copious stool/flatus. Continue TPN. Diet management per Dr Graham. Labs stable. (2) Lumbar back pain with radiculopathy affecting right lower extremity: right leg symptoms likely due to DJD at L4-L5 as seen on CT. already takes lyrica bid. could consider increasing to tid dosing if necessary. ideally should be on NSAID but defer in setting of recent surgery. 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 (3) Hydrocephalus: s/p PSYCH ARNP shunt replacement in 2012 at [facility]. Recently established care with Neurosurgery at [facility]. Was going to have shunt revision soon at [place]. Thus far he has had no signs/symptoms of shunt malfunction. (4) Non-healing wound: right knee - from recent fall - local wound care (5) Compression fracture: T11, T12, L1 - some of these may be old. vitamin D level c/w vitamin D insufficiency. start vit D supplementation 2000 IU daily. could consider back brace if necessary. (6) Seizure: seizure d/o continue lamictal BID no issues (7) HTN (hypertension): controlled off of normal meds (8) Restless leg: Mirapex and Lyrica ativan prn controlled (9) Candidiasis of mouth and esophagus: nystatin solution 5cc qid swish/spit (10) Hypophosphatemia: kphos neutral 1 cap QID (11) DVT prophylaxis: Heparin q12h obtain PT, OT evals due to recent falls Subjective patient sleeping upon my arrival. he awoke easily. he denied any complaints. he asked when he "would be getting real food." continues to have about 3 BMs/day and plenty of flatus. ambulating to bathroom. modest right leg radicular pain - no worse than previous. denies any dyspnea, cp. abd bloating present but no pain. Review of Systems Constitutional: no chills, no fatigue, no weakness and no anorexia Ear, Nose, Mouth, Throat: + dry mouth Respiratory: no cough, no dyspnea and no dyspnea on exertion Cardiovascular: no chest pain Gastrointestinal: + bloating; no nausea and no vomiting Physical Exam Constitutional: well developed, well nourished and average body habitus; no acute distress and no altered mental status ENMT: Mouth: + tongue abnormality (thrush ?) Respiratory: normal respiratory effort, lungs clear to auscultation Cardiovascular: Rate/Rhythm: regular rate and regular rhythm Heart Sounds: normal S1 and normal S2 Vessels: posterior tibial pulses present and dorsalis pedis pulses present; no JVD Gastrointestinal (Abdomen): Inspection/Auscultation: + abdomen distended and normal bowel sounds Percussion/Palpation: abdomen nontender, no guarding, abdomen not rigid and no hepatosplenomegaly Skin: dressings intact abdominal wall Neurologic: strength 5/5 both legs Psychiatric: A+Ox3, euthymic affect Results & Data Vital Signs (Past 12 Hours) Vital Signs Temp Pulse Resp BP Pulse Ox 04/10/19 19:27 37.4 C 88 18 129/65 93 04/10/19 15:33 36.6 C 90 18 102/63 92 Laboratory Results Laboratory Results - last 24 hr 04/10/19 04/10/19 04/10/19 08:14 08:28 08:28 WBC RBC Hgb Hct MCV MCH MCHC RDW Std Deviation RDW Coeff of Garrison Plt Count MPV Immature Gran % (Auto) Neut % (Auto) Lymph % (Auto) [place] % (Auto) Eos % (Auto) Baso % (Auto) Immature Gran # (Auto) Neut # (Auto) Lymph # (Auto) [place] # (Auto) Eos # (Auto) Baso # (Auto) Sodium 137 Potassium 3.6 Chloride 103 Carbon Dioxide 29 Anion Gap 6.0 BUN 16 Creatinine 0.53 L Est Cr Clr Drug Dosing 181.0 Est GFR ( Amer) 142.0 Est GFR (Non-Af Amer) 122.5 BUN/Creatinine Ratio 29.4 H Glucose 108 H POC Glucose 101 H Calcium 8.0 L Phosphorus 2.4 L Magnesium 1.9 25-OH Vitamin D Total 27.1 L 04/10/19 04/10/19 04/10/19 08:28 12:22 17:31 WBC 9.71 RBC 3.66 L Hgb 10.6 L Hct 31.4 L MCV 85.8 MCH 29.0 MCHC 33.8 RDW Std Deviation 42.4 RDW Coeff of Garrison 13.4 Plt Count 249 MPV 11.0 H Immature Gran % (Auto) 0.5 Neut % (Auto) 74.1 Lymph % (Auto) 6.5 [place] % (Auto) 16.2 Eos % (Auto) 2.5 Baso % (Auto) 0.2 Immature Gran # (Auto) 0.05 H Neut # (Auto) 7.20 H Lymph # (Auto) 0.63 L [place] # (Auto) 1.57 H Eos # (Auto) 0.24 Baso # (Auto) 0.02 Sodium Potassium Chloride Carbon Dioxide Anion Gap BUN Creatinine Est Cr Clr Drug Dosing Est GFR ( Amer) Est GFR (Non-Af Amer) BUN/Creatinine Ratio Glucose POC Glucose 103 H 102 H Calcium Phosphorus Magnesium 25-OH Vitamin D Total 04/10/19 04/10/19 21:19 23:56 WBC RBC Hgb Hct MCV MCH MCHC RDW Std Deviation RDW Coeff of Garrison Plt Count MPV Immature Gran % (Auto) Neut % (Auto) Lymph % (Auto) [place] % (Auto) Eos % (Auto) Baso % (Auto) Immature Gran # (Auto) Neut # (Auto) Lymph # (Auto) [place] # (Auto) Eos # (Auto) Baso # (Auto) Sodium Potassium Chloride Carbon Dioxide Anion Gap BUN Creatinine Est Cr Clr Drug Dosing Est GFR ( Amer) Est GFR (Non-Af Amer) BUN/Creatinine Ratio Glucose POC Glucose 104 H 103 H Calcium Phosphorus Magnesium 25-OH Vitamin D Total (1) Hydrocephalus Hydrocephalus type: unspecified Qualified Code(s): G91.9 - Hydrocephalus, unspecified (2) HTN (hypertension) Hypertension type: essential hypertension Qualified Code(s): I10 - Essential (primary) hypertension
--- NOTE | 2019-04-10 23:29 | Hospitalist Progress Note ---
Date of Service April 10, 2019 Subjective Patient complaining of pain at his shunt site and intermittent blurry vision, excess tearing of his eyes as well as headache 8/10 in severity. The blurry vision started yesterday, while the other symptoms started today. Patient with MANAGER INVENTORY MANAGEMENT shunt in place for pseudotumor cerebrii. The shunt was initially placed in 2000 at [facility]. He states that it stopped functioning in 2007. It was replaced at [facility] in 2012. He reports that it is presently not functioning. He is scheduled to see Dr. Huston from Neurosurgery at [facility] on April 19 for replacement of the shunt. Patient as admitted to [facility] on 03/30/19 with SBO. He was taken to the OR on 04/04/19 for lysis of adhesions. Found to have significant scar tissue at the site of the MANAGER INVENTORY MANAGEMENT shunt. The adhesions were removed and the MANAGER INVENTORY MANAGEMENT tip was rerouted into the RUQ. On exam patient is afebrile, hemodynamicallly stable, NAD HEENT: NC/AT, tenderness with palpation of the shunt site on left head, no redness/warmth. PERRL, EOMI, disc margins difficult to assess during with ophthalmoscopic exam, neck supple Labs and images reviewed. Assessment/Plan: discussed with Neurosurgeon healthcare market consultant [place] [facility] was placed for psuedotumor cerebrii which is a non-life threatening indication and use of MANAGER INVENTORY MANAGEMENT shunts in this setting is somewhat controversial. -Check shunt series -Check CT head to assess for hydrocephalus -Consider CT abdomen to assess for fluid collection - will hold on this for now -Neuro checks q 4 hours -Patient is to followup with Neurosurgery on April 19 as scheduled Results & Data Vital Signs (Past 12 Hours) Vital Signs Temp Pulse Resp BP Pulse Ox 04/10/19 19:27 37.4 C 88 18 129/65 93 04/10/19 15:33 36.6 C 90 18 102/63 92
[2019-04-11] MEDS: LORazepam 1 MG/2 ML VIAL IV PRN ×2 (00:04→06:08)
[2019-04-11] MEDS: HYDROmorphone HCL 0.5MG/ML 50 ML CASSETTE IV PRN ×2 (00:18→07:12)
[2019-04-11] MEDS: METOCLOPRAMIDE HCL INJ 5 MG/ML 2 ML VIAL IV SCH ×2 (01:08→06:42)
--- NOTE | 2019-04-11 06:15 | Progress Note ---
Date of Service April 11, 2019 Assessment & Plan (1) Partial small bowel obstruction: may concern has been shunt infection causing bowel inflammation and sbo- now has developed soreness/ inflammation in head will likely need to have shunt removed- likely etiology for low grd fever - will need to contact [facility] and transfer pt- discuss with medical team- apparently Dr Fam talked to [facility] last pm. ?atbx Subjective c/o soreness in area of shunt over cranial area- never had this afeb, vitals stable CT head- inflammation around shunt in head Physical Exam Physical Exam: awake , alert hungry Results & Data Vital Signs (Past 12 Hours) Vital Signs Temp Pulse Resp BP Pulse Ox 04/11/19 03:29 36.6 C 82 18 119/57 L 96 04/10/19 22:53 37.2 C 87 18 113/65 94 04/10/19 19:27 37.4 C 88 18 129/65 93
--- NOTE | 2019-04-11 06:23 | Progress Note ---
Date of Service April 08, 2019 Results & Data Vital Signs (Past 12 Hours) Vital Signs Temp Pulse Pulse Resp BP Pulse Ox 04/07/19 23:27 37.1 C 77 14 126/75 97 04/07/19 22:22 78 18 93
--- NOTE | 2019-04-11 06:29 | XRay Report ---
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 DISCUSSION: The bones and joint spaces appear intact. There is no evidence of fracture, dislocation o r bony disease. Shunt catheter appears to be intact. IMPRESSION: Negative study. Shunt catheter appears intact The above report was generated using voice recognition software. It may contain grammatical, syntax or spelling errors. Electronically signed by: Niraj Tariq M.D. 04/11/2019 6:28 AM
[2019-04-11] MEDS ORDERED: CIPROFLOXACIN 400 MG/200 ML BAG IV SCH (06:30)
[2019-04-11] MEDS ORDERED: metroNIDAZOLE 500 MG/100 ML BAG IV SCH (06:30)
--- NOTE | 2019-04-11 06:30 | XRay Report ---
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 FINDINGS: The cervical spine is visualized from C1 through the superior endplate of T1. There is no f racture. No subluxation. Disc spaces are preserved. Evidence for an anterior low cervical fusion. Sh unt catheter is intact. IMPRESSION: No fracture or subluxation within the cervical spine. Shunt catheter is intact. The above report was generated using voice recognition software. It may contain grammatical, syntax or spelling errors. Electronically signed by: Niraj Tariq M.D. 04/11/2019 6:29 AM
--- NOTE | 2019-04-11 06:31 | XRay Report ---
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 Moderate increase in cardiac size as well as prominence of the pu lmonary vasculature. Progressive left basilar atelectasis. IMPRESSION: Pulmonary vascular congestion. Composed infiltrate left base. All catheters are intact. PICC catheter is in the right atrium The above report was generated using voice recognition software. It may contain grammatical, syntax or spelling errors. Electronically signed by: Niraj Tariq M.D. 04/11/2019 6:30 AM
--- NOTE | 2019-04-11 06:32 | XRay Report ---
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 Postprocedural ileus. No seco ndary evidence for free air. IMPRESSION: 1. Shunt catheter is intact. 2. Generalized postoperative ileus. The above report was generated using voice recognition software. It may contain grammatical, syntax or spelling errors. Electronically signed by: Niraj Tariq M.D. 04/11/2019 6:30 AM
--- NOTE | 2019-04-11 07:05 | CT Scan Report ---
HEAD CT NONCONTRAST CT DOSE: 614.27 mGy.cm HISTORY: ?hydrocephalus TECHNIQUE: Multiaxial CT images of the head were performed without the use of intravenous contrast. A utomated exposure control was utilized for this study. A dose lowering technique was utilized adheri ng to the principles of ALARA. Comparison: Head CT 03/26/2019. Findings: The paranasal sinuses and mastoid air cells are clear. The ventricles are stable in size. N o evidence for hydrocephalus. There is no mass, hematoma, midline shift, acute infarct. Left frontal approach ventriculostomy catheter terminates in the right lateral ventricle. This remains unchanged. Stable small focal hypodensity within the right high convexity. Mild scalp edema surrounding the vent riculostomy catheter has slightly progressed. Impression: Mild scalp edema surrounding the ventriculostomy catheter has slightly progressed. No acute intracran ial abnormality. Electronically signed by: Iglesia Harris M.D. 04/11/2019 7:04 AM
[2019-04-11 07:11] LABS: BUN Creatinine Ratio 33.4 (10-20); Calcium 8.2 mg/dl (8.5-10.1); Creatinine Clr Calc Pharmacy 204.1 ml/min; Est GFR (African American) 149.2; Est GFR (Non-African American) 128.7; Potassium 3.9 mmol/L (3.5-5.1)
[2019-04-11 07:17] LABS: Phosphorus 3.7 mg/dl (2.5-4.9)
[2019-04-11] MEDS: FAMOTIDINE 20 MG in SYRINGE 3 ML IV SCH (08:17)
[2019-04-11] MEDS: lamoTRIgine 25 MG TAB PO SCH (08:18)
[2019-04-11] MEDS: lamoTRIgine 100 MG TAB PO SCH (08:18)
[2019-04-11] MEDS: LIDOCAINE 5% 1 PATCH TD SCH (08:19)
[2019-04-11] MEDS: PRAMIPEXOLE DIHYDROCHLO 0.5 MG TAB PO SCH (08:19)
[2019-04-11] MEDS: POT PHOSPHATE MONOBASIC W/ SOD TAB PO SCH (08:20)
[2019-04-11] MEDS: CHOLECALCIFEROL 1,000 UNITS TAB PO SCH (08:20)
[2019-04-11] MEDS ORDERED: NYSTATIN SUSP 500,000 U/5 ML UDC PO SCH (09:00)
[2019-04-11] MEDS: INSULIN ASPART 100 UNITS/ML 3 ML PEN SC SCH (09:15)
[2019-04-11] MEDS: PREGABALIN 100 MG CAP PO SCH (09:15)
[2019-04-11] MEDS: HEPARIN SOD 5,000 UNIT/0.5 ML VIAL SQ SCH (09:16)
[2019-04-11] MEDS ORDERED: Nursing to Pharmacy Communication ONE (10:01)
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
--- NOTE | 2019-04-20 13:54 | Coding Query ---
Your help is needed for correct coding of this account; please clarify if the patients Post-operative Ileus was: ( x ) expected out of the surgery ( ) unexpected complication from the surgery ( )other please specify Thank you Racheal DENNIS
== END 2019-04-11 12:14 | disposition short-term general hospital (02) | DRG 336 ==
LOC: ED 13:02 → SUATTDRO 17:35 → 3W 17:35

== ENCOUNTER 2021-03-09 14:11 | Inpatient (IN) ==
[~2021-03-09 14:11] MED LIST changes: -ACET325T96 PO; -BISA1TAB15 PO; -CALC625T4 PO; -CHOL1TAB46 PO; -CLON2TAB3 PO; -DOCU100C31 PO; -DULO60CA44 PO; -FLUT0.15 NAE; +HEPARIN (PORCINE) 1000 UNIT/ML 10 ML (CATH LAB USE ONLY) ONE; -HYDR50CA2 PO; -IBUP-1459 PO; -LACT10SO30 PO; -LAMO200T35 PO; -LAMO25TA PO; -LRS20 PO; -METO25TA56 PO; +MIDAZOLAM HCL 1 MG/ML 2ML VIAL ONE; -PRAM1TAB6 PO; -PREG200C PO; -PRLSR20 PO; +fentaNYL citrate 100 MCG/2 ML VIAL ONE; +niCARdipine HCL INJ 2.5 MG/ML 10 ML AMP ONE
[2021-03-09] MEDS ORDERED: NITROGLYCERIN/D5W 100MCG/ML 20ML SYR ONE (14:12)
[2021-03-09 14:39] LABS: iSTAT Creatinine 1.2 mg/dl (0.6-1.3); iSTAT Hemoglobin 15.6 g/dl (14.0-18.0); iSTAT Ionized Calcium 1.27 mmol/l (1.12-1.32); iSTAT Potassium 5.4 mmol/L (3.3-5.0)
[2021-03-09] MEDS ORDERED: OPTIRAY 320 125ml IV ONE (14:43)
[2021-03-09] MEDS ORDERED: SODIUM BICARBONATE 8.4% 150 MEQ in DEXTROSE 5% 1,000 ML IV SCH ×2 (14:45→21:30)
--- NOTE | 2021-03-09 14:49 | XRay Report ---
XR chest 1V portable HISTORY: Suicide attempt. Endotracheal tube placement. COMPARISON: Chest 07/26/2020. FINDINGS: Endotracheal tube terminates 2.9 cm from the pj. There is a markedly distended and gas- filled stomach. Near diffuse hazy airspace opacities within the lungs. No pleural effusions. No pneum othorax. The heart is top normal in size. There is also perihilar interstitial/vascular thickening. O ld, healed right-sided clavicle fracture. IMPRESSION: 1. The endotracheal tube terminates 2.9 cm from the pj. 2. Near diffuse bilateral hazy airspace opacities. This could represent pulmonary edema or an atypica l pneumonia. ACT 112: Negative or not required by law. Electronically signed by: Iglesia Harris M.D. 03/09/2021 2:48 PM
[2021-03-09 14:55] LABS: Hematocrit (blood only) 44.7 % (42-52); Hemoglobin 14.7 g/dL (14.0-18.0); Mean Corpuscular Hemoglobin 29.4 pg (25-34); Mean Corpuscular Hgb Conc 32.9 g/dL (32-36); Mean Corpuscular Volume 89.4 fL (80-100); Mean Platelet Volume 9.9 fL (7.4-10.4); Nucleated RBC # (auto) 0.06 K/uL (0-0); Nucleated RBC % (auto) 0.3 %; Platelet Count 214 K/uL (130-400); RDW Coefficient of Variation 13.9 % (11.5-14.5); RDW Standard Deviation 45.4 fL (36.4-46.3); White Blood Count 18.69 K/uL (4.8-10.8)
[2021-03-09 15:03] LABS: Base Excess VBG -18.6 mEq/L; Oxygen Saturation VBG 75.6 %; pH VBG 6.88 (7.36-7.41)
--- NOTE | 2021-03-09 15:09 | CT Scan Report ---
HEAD CT NONCONTRAST CT DOSE: HISTORY: Suicide attempt. hanging TECHNIQUE: Multiaxial CT images of the head were performed without the use of intravenous contrast. A utomated exposure control was utilized for this study. A dose lowering technique was utilized adheri ng to the principles of ALARA. Comparison: Head CT 10/14/2020. Findings: The paranasal sinuses and mastoid air cells are clear. Scattered old alejandro hole seen within the calvarium. No calvarial fractures. There is no mass, hematoma or midline shift. There is diffuse cerebral edema with diffuse loss of the campbell-white junction and effacement of the basilar cisterns. F indings are consistent with a diffuse hypoxic/anoxic brain injury. Impression: There is diffuse cerebral edema with diffuse loss of the campbell-white junction and effacement of the ba silar cisterns. Findings are consistent with a diffuse hypoxic/anoxic brain injury. ACT 112: Negative or not required by law. Electronically signed by: Iglesia Harris M.D. 03/09/2021 3:07 PM
--- NOTE | 2021-03-09 15:14 | CT Scan Report ---
CERVICAL SPINE CT CT DOSE: 1953.68 mGy.cm HISTORY: Suicide attempt. hanging TECHNIQUE: Multiaxial CT images of the cervical spine were performed and reformatted in the sagittal and coronal plane without the use of contrast. A dose lowering technique was utilized adhering to th e principles of ALARA. COMPARISON: Cervical spine CT 11/19/2017. FINDINGS: Reversal the normal lordotic curvature. No acute fracture or subluxation. Anterior cervical discectomy and fusion at C6-C7. The hardware appears intact. An endotracheal tube is partially visua lized. Prevertebral soft tissues are maintained. Old nonunited fracture seen within the superior face ts of C3 and C4. These demonstrate sclerotic margins. No pneumothorax. Consolidation and interlobular septal thickening within the lung apices. IMPRESSION: 1. No acute fractures within the cervical spine. 2. Consolidation and interlobular septal thickening within the lung apices. This could be due to a pn eumonia or pulmonary edema. ACT 112: Negative or not required by law. Electronically signed by: Iglesia Harris M.D. 03/09/2021 3:13 PM
[2021-03-09 15:17] LABS: INR 1.7 (0.9-1.1); Partial Thromboplastin Ratio 2.5; Prothrombin Time 16.7 Seconds (9.0-12.0)
--- NOTE | 2021-03-09 15:19 | CT Scan Report ---
HEAD & NECK CTA HISTORY: Suicide attempt. hanging TECHNIQUE: Multiaxial CT images of the head were performed following the intravenous administration o f contrast to evaluate the major cerebral vessels. Multiaxial CT images of the neck were also perform ed following the intravenous administration of contrast to evaluate the major cervical vessels. Maxim um intensity projection images were also obtained. A dose lowering technique was utilized adhering to the principles of ALARA. COMPARISON: Head CT 03/09/2021. FINDINGS: Diffuse cerebral edema consistent with a hypoxic/anoxic brain injury is again noted. Visualized intra cranial internal carotid arteries, distal vertebral arteries, and basilar artery are widely patent. T here is no significant stenosis, occlusion, or aneurysm seen within the bilateral ACAs, MCAs, or cigarette catcher . The major dural venous sinuses are patent. The aortic arch and proximal great vessels are widely patent. There is no significant stenosis, occ lusion, or dissection identified within the bilateral common carotid, internal carotid, or vertebral arteries. No pneumothorax. Dense consolidation within the upper lung zones posteriorly with associate d groundglass densities and interlobular septal thickening. This could represent pulmonary edema or p neumonia. Endotracheal tube terminates 2 cm from the pj. Old, healed right clavicle fracture. C6- C7 ACDF. IMPRESSION: 1. No significant stenosis, occlusion, or aneurysm within the [place]. 2. No significant stenosis, occlusion, or dissection identified within the carotid or vertebral arter ies. 3. Diffuse cerebral edema consistent with a hypoxic/anoxic brain injury. 4. Dense consolidation within the upper lung zones with associated groundglass densities and interlob ular septal thickening. This may represent pulmonary edema or pneumonia. 5. Endotracheal tube terminates 2 cm from the pj. ACT 112: Negative or not required by law. Electronically signed by: Iglesia Harris M.D. 03/09/2021 3:18 PM
--- NOTE | 2021-03-09 15:19 | CT Scan Report ---
HEAD & NECK CTA HISTORY: Suicide attempt. hanging TECHNIQUE: Multiaxial CT images of the head were performed following the intravenous administration o f contrast to evaluate the major cerebral vessels. Multiaxial CT images of the neck were also perform ed following the intravenous administration of contrast to evaluate the major cervical vessels. Maxim um intensity projection images were also obtained. A dose lowering technique was utilized adhering to the principles of ALARA. COMPARISON: Head CT 03/09/2021. FINDINGS: Diffuse cerebral edema consistent with a hypoxic/anoxic brain injury is again noted. Visualized intra cranial internal carotid arteries, distal vertebral arteries, and basilar artery are widely patent. T here is no significant stenosis, occlusion, or aneurysm seen within the bilateral ACAs, MCAs, or processing engineer . The major dural venous sinuses are patent. The aortic arch and proximal great vessels are widely patent. There is no significant stenosis, occ lusion, or dissection identified within the bilateral common carotid, internal carotid, or vertebral arteries. No pneumothorax. Dense consolidation within the upper lung zones posteriorly with associate d groundglass densities and interlobular septal thickening. This could represent pulmonary edema or p neumonia. Endotracheal tube terminates 2 cm from the pj. Old, healed right clavicle fracture. C6- C7 ACDF. IMPRESSION: 1. No significant stenosis, occlusion, or aneurysm within the [place]. 2. No significant stenosis, occlusion, or dissection identified within the carotid or vertebral arter ies. 3. Diffuse cerebral edema consistent with a hypoxic/anoxic brain injury. 4. Dense consolidation within the upper lung zones with associated groundglass densities and interlob ular septal thickening. This may represent pulmonary edema or pneumonia. 5. Endotracheal tube terminates 2 cm from the pj. ACT 112: Negative or not required by law. Electronically signed by: Iglesia Harris M.D. 03/09/2021 3:18 PM
[2021-03-09 15:23] LABS: Partial Thromboplastin Time 66.9 Seconds (21.0-31.0)
[2021-03-09 15:27] LABS: ANC (manual) 10.93 K/uL (1.4-6.5); Echinocytes 1+; Lymphocytes % (manual) 30.5 %; Metamyelocytes # (manual) 0.32 K/uL (0-0); Metamyelocytes % (manual) 1.7 %; Monocytes % (manual) 5.9 %; Myelocytes # (manual) 0.64 K/uL (0-0); Myelocytes % (manual) 3.4 %; Neutrophils # (manual) 10.93 K/uL (1.4-6.5); Neutrophils % (manual) 58.5 %
[2021-03-09] MEDS: Standard 16mcg/mL; 4 MG in 250 mL for HYPOTENSION IV SCH ×6 (15:27→21:27)
[2021-03-09 15:35] LABS: Calcium 8.1 mg/dl (8.5-10.1); Creatinine Clr Calc Pharmacy 73.5 ml/min; Est GFR (African American) 79.5; Est GFR (Non-African American) 68.6; Troponin I 1.48 ng/ml (0-0.045)
[2021-03-09 15:46] LABS: Acetaminophen 4 ug/ml (10-30); Salicylate < 1.7 mg/dl (2.8-20)
[2021-03-09 15:47] LABS: Influenza A virus by PCR Negative (Neg); Influenza B virus by PCR Negative (Neg); RSV by PCR Negative (Neg); SARS CoV2 RNA(COVID-19) InHosp NEGATIVE (Negative)
--- NOTE | 2021-03-09 16:10 | History & Physical Report ---
Date of Service March 09, 2021 Assessment & Plan (1) Suicide attempt by hanging: With resulting cardiac arrest and evidence of anoxic brain injury on initial CT head. (2) Cardiac arrest: Hypoxia-induced cardiac arrest due to suicide attempt by way of hanging. s/p CPR in the field along with intubation, defibrillation, epi, etc. successful catholic of spontaneous circulation but needing epi drip to maintain MAP>65 at time of admission. prognosis is very, very poor. (3) Shock circulatory: cardiogenic. 2nd to cardiac arrest/anoxia. epi drip but likely to need additional pressor and/or inotrope. defer management to ICU. (4) Anoxic brain injury: CT head with evidence of severe anoxic injury. Likely has suffered brain . (5) Coagulopathy: 2nd shock liver (6) Lactic acidosis: 2nd to suicide attempt by hanging, hypoxia, prolonged cardiac arrest and prolonged resuscitative efforts pressors, bicarbonate infusion, serial labs (7) Shock liver: 2nd to cardiac arrest severe trend his LFTs (8) Acute renal failure due to tubular necrosis: stevenson supportive care maintain MAP>65 (9) Multiple sclerosis: (10) Asthma: (11) Bipolar disorder: when I spoke with the pt's , Trinity Osorio, she had mentioned that his mental health had not been good of late. can't rule out that patient hadn't been having psychotic symptoms. [id number] we will hold his PO bipolar meds for now given his mental status. (12) HTN (hypertension): (13) Diabetes: ICU glycemic protocol (14) Poor prognosis: I placed multiple phone calls to [facility] today. First call was to ensure that it was permissible to contact the pt's , Trinity. Jail admin did give permission for such. I called & spoke with Ms Osorio. Explained today's events and that patient was likely brain- from anoxic injury. She was devestated by this news. She confirmed that she and her had 3 children together, and that he had nother child with a previous partner prior to that. She confirmed DNR status and stated "he would never want to live in a state like this." (vegetative) I told her that patient was unlikely to survive and could potentially pass even as early as this evening. She voiced that she wanted to come to the hospital to see him. I then called [facility] to gain permission for Ms Osorio to visit her at [facility]. Jail admin was contacted again, and they granted visiting rights for her to come to [facility] (but their children were NOT allowed). All of the above was communicated to the ICU nursing staff. Appreciate ICU attending assistance. total critical care time including admission assessment/orders, speaking with IC U attending, speaking with ICU nursing staff, speaking with pt's multiple times, coordinating care with Russ -- 90 minutes History of Present Illness Chief Complaint: cardiac arrest Primary Care Provider: CELE Pierce 55yo male with MS, h/o pseudotumor cerebri, h/o ACID REMOVER shunt (now removed), GERD, asthma, bipolar disorder, HTN, DM, and seizures who presents from [facility] after a suicide attempt by way of hanging himself by a cord. He was found by the guards in his cell, the cord was cut, he was placed on the ground, CPR was started, and AED was applied. It was uncertain how long he had been attached to the cord. He ultimately received 1 defibrillation by report from the AED. Upon EMS arrival he was in PEA and epinephrine was given with catholic of circulation. He was intubated in the field and placed in a c-collar. During transport to [facility] he apparently lost his pulse, CPR was restarted, and epinephrine was given again. Upon presentation here he had a pulse but was not spontaneously breathing. Dr Stef Callahan was consulted and it was felt that going to the manager labor delivery was not indicated. He received 3 amps of bicarbonate, calcium chloride, epinephrine drip was started, and bicarbonate drip was also initiated. CT head with signs of anoxia. Initial pH on blood gas 6.8. He has had no spontaneous movements since arrival. Records were reviewed and show that patient was in our ER on 03/03/2021. At that time he apparently had placed a letter in his rectum, followed by attempts to place a bottle of deodorant in the rectum to push the letter up higher. The letter fell out of his rectum, but the deodorant remained. He was transferred to [facility] to retrieve the foreign body. Allergies Allergy/AdvReac Type Severity Reaction Status Date / Time codeine Allergy Unknown Gastrointestinal Verified 03/09/21 14:47 Upset methadone Allergy Unknown SCI LIST Verified 03/09/21 14:47 Penicillins Allergy Unknown SCI LIST Verified 03/09/21 14:47 quetiapine Allergy Unknown SCI LIST Verified 03/09/21 14:47 Tyhydnd-Bmo-Gyt Reductase Allergy Unknown SCI LIST Verified 03/09/21 14:47 Inhibitor tetracycline Allergy Unknown SCI LIST Verified 03/09/21 14:47 Home Medications Medication Instructions Recorded Confirmed Type pramipexole 1 mg tablet 1 mg PO TID 08/16/18 03/09/21 History pregabalin 200 mg capsule 200 mg PO BID 08/16/18 03/09/21 History cholecalciferol (vitamin D3) 5,000 unit PO QAM 03/26/19 03/09/21 History [Vitamin D3] lamotrigine 50 mg PO BID 03/26/19 03/09/21 History lamotrigine 200 mg PO BID 03/30/19 03/09/21 History furosemide 20 mg PO QAM PRN 05/31/19 03/09/21 History sennosides [senna] 17.2 mg PO HS PRN 05/31/19 03/09/21 History verapamil 180 mg PO QAM 05/31/19 03/09/21 History tramadol 100 mg PO TID PRN 06/04/19 03/09/21 History biotin 5,000 mcg SUBLINGUAL DAILY 07/26/20 03/09/21 History hydroxyzine pamoate [Vistaril] 50 mg PO BID 07/26/20 03/09/21 History levalbuterol tartrate [Xopenex HFA] 2 inh INHALATION QID PRN 07/26/20 03/09/21 History tiotropium bromide [Spiriva with 1 cap INHALATION DAILY@0630 07/26/20 03/09/21 History HandiHaler] ammonium lactate 1 applic TOPICAL DAILY 03/09/21 03/09/21 History modafinil 200 mg PO QAM 03/09/21 03/09/21 History saliva substitute combo no.9 1 ea PO TID 03/09/21 03/09/21 History [Biotene Dry Mouth Oral Rinse] sulfamethoxazole-trimethoprim 1 tab PO Q12H 03/09/21 03/09/21 History [Sulfatrim DS] ubrogepant [Ubrelvy] 100 mg PO DIRECTED PRN MDD 2 03/09/21 03/09/21 History TAB/24 HOURS zinc oxide-cod liver oil [Desitin] 1 applic TOPICAL TID PRN 03/09/21 03/09/21 History Past Med/Surg History Medical History (Updated 03/09/21 @ 23:04 by Sonido Marie) Adult antisocial behavior Anxiety Asthma Bipolar disorder Bowel obstruction Cannabis abuse Charcot foot due to diabetes mellitus Diabetic neuropathy GERD (gastroesophageal reflux disease) HTN (hypertension) Hx MRSA infection Hydrocephalus PER PT VERBAL REPORT IBS (irritable bowel syndrome) Insomnia Multiple sclerosis Narcolepsy PER PT REPORT Restless legs syndrome Seizure Sleep apnea Vitamin D deficiency Surgical History S/P brain surgery S/P colostomy S/P colostomy takedown S/P foot surgery S/P hernia repair S/P tonsillectomy S/P ACID REMOVER shunt Family History (Updated 03/09/21 @ 22:45 by Sonido Marie) Other Family history unknown Social History (Updated 03/09/21 @ 22:46 by Sonido Marie) Smoking Status: Unknown if ever smoked Cigarettes Per Day: 10; Hx Alcohol Use: No Hx Substance Use: No Preferred Language: Czech Communication Ability: Effective Visual Impairment: Diminished Hearing Ability: Normal Imaging Analyst Required: No Beliefs That Will Affect Care: Jainism Jainism Beliefs: Presybeterian marital status: Current Living Situation: Other Current Living Situation Comment: CELE PIERCE current occupational status: disabled How many Children do You have: 4 Feels Safe at Home: Yes Assistive Devices: Denture - Upper, Denture - Lower and Walker Review of Systems Review of Systems: Unobtainable due to endotracheal tube and Unobtainable due to reduced consciousness Physical Exam Constitutional: + ill appearing, + altered mental status (unresponse; no response to pain, touch, etc), + frail appearing and + mechanically ventilated; + not healthy appearing Eyes: + dilated pupils and + fixed pupils absent corneal reflexes ENMT: ETT in place; OG tube in place Neck: in c-collar Respiratory: Auscultation: + diminished lung sounds (bases) and + rales (b/l ) intubated, mechanically ventilated Cardiovascular: Rate/Rhythm: regular rate and regular rhythm Heart Sounds: normal S1 and normal S2; no murmur Vessels: posterior tibial pulses present (<1+ b/l ) and dorsalis pedis pulses present (<1+ b/l ) Extremities: + abnormal capillary refill (prolonged, cool to touch, some mottling) Gastrointestinal (Abdomen): Inspection/Auscultation: + abdomen distended (severe), + abdominal surgical scar and + high-pitched sounds Percussion/Palpation: abdomen nontender and no guarding Musculoskeletal: Extremities: + muscle atrophy and + foot abnormality Bilateral patient wearing AFOs/braces to b/l legs Skin: + mottling Trauma: + evidence of skin trauma (ecchymoses right chest wall ) Neurologic: Comatose Patient: + corneal reflex absent and + response to noxious stimuli absent 0 reflexes upper and lower extremities; flaccid upper and lower extremities Genitourinary: stevenson in place Results & Data Results & Data ([facility]) Vital Signs (Past 12 Hours) Vital Signs Pulse Resp BP Pulse Ox 03/09/21 15:46 79 111/70 95 03/09/21 15:44 78 115/66 94 03/09/21 15:42 79 112/65 95 03/09/21 15:40 78 113/64 99 03/09/21 15:38 78 115/67 99 03/09/21 15:36 77 115/66 98 03/09/21 15:34 77 116/66 100 03/09/21 15:32 77 113/66 99 03/09/21 15:30 77 114/65 99 03/09/21 15:28 77 24 119/71 98 03/09/21 15:26 76 118/69 98 03/09/21 15:24 76 118/70 98 03/09/21 15:22 77 117/73 98 03/09/21 15:20 76 119/72 98 03/09/21 15:18 76 123/74 98 03/09/21 15:16 77 124/78 98 03/09/21 15:14 77 132/78 99 03/09/21 15:12 78 152/90 H 98 03/09/21 15:10 77 155/91 H 98 03/09/21 15:08 77 158/93 H 98 03/09/21 15:06 78 161/96 H 98 03/09/21 15:04 78 159/93 H 97 03/09/21 15:02 79 162/95 H 96 03/09/21 14:36 91 H 124/69 96 03/09/21 14:35 86 118/68 96 03/09/21 14:32 76 75/40 L 96 03/09/21 14:31 76 59/41 L 97 03/09/21 14:30 77 03/09/21 14:28 78 95 03/09/21 14:26 78 71/41 L 94 03/09/21 14:25 79 20 71/41 L 93 03/09/21 14:24 79 90 03/09/21 14:22 80 86 L 03/09/21 14:21 80 20 92 03/09/21 14:20 81 90 03/09/21 14:18 83 88 L Laboratory Results Laboratory Results - last 24 hr 03/09/21 03/09/21 03/09/21 14:26 14:33 14:33 WBC RBC Hgb POC Hgb 15.6 Hct POC Hct 46 MCV MCH MCHC RDW Std Deviation RDW Coeff of [place] Plt Count MPV Absolute Nucleated RBC Nucleated RBC % (auto) Neutrophils % (Manual) Lymphocytes % (Manual) Monocytes % (Manual) Metamyelocytes % (Man) Myelocytes % (Man) Neutrophils # (Manual) Total Absolute Neuts Lymphocytes # (Manual) Total Abs Lymphocytes Monocytes # (Manual) Metamyelocytes # (Man) Myelocytes # (Manual) Blood Smear Review Echinocytes PT INR APTT PTT Ratio POC pH POC pCO2 POC pO2 POC HCO3 POC Base Excess POC ABG O2 Sat VBG pH VBG pCO2 VBG pO2 VBG HCO3 VBG O2 Saturation VBG Base Excess Barometric Pressure POC Sodium 141 Sodium POC Potassium 5.4 H Potassium POC Chloride 108 Chloride Carbon Dioxide POC Total CO2 20 L Anion Gap POC Anion Gap 19.0 POC BUN 17 BUN Creatinine POC Creatinine 1.2 Est Cr Clr Drug Dosing Est GFR ( Amer) Est GFR (Non-Af Amer) BUN/Creatinine Ratio Glucose POC Glucose (other) 174 H Osmolality Lactate Calcium POC Ioniz Calcium [place] 1.27 Total Bilirubin Direct Bilirubin AST ALT Alkaline Phosphatase Troponin I Total Protein Albumin Globulin Albumin/Globulin Ratio Beta-Hydroxybutyric Acd Urine Color Urine Appearance Urine pH Ur Specific [place] Urine Protein Urine Glucose (UA) Urine Ketones Urine Blood Urine Nitrite Urine Bilirubin Urine Urobilinogen Ur Leukocyte Esterase Urine WBC (Auto) Urine RBC (Auto) U Hyaline Cast (Auto) U Epithel Cells (Auto) Urine Bacteria (Auto) Urine Osmolality Ur Random Sodium Nasal Screen MRSA (PCR) Salicylates Acetaminophen COVID-19 Eval Order CovFluRsv at [facility] SARS-CoV-2 (PCR) NEGATIVE Influenza Type A (PCR) Negative Influenza Type B (PCR) Negative RSV (RT-PCR) Negative 03/09/21 03/09/21 03/09/21 14:42 14:42 14:42 WBC 18.69 H RBC 5.00 Hgb 14.7 POC Hgb Hct 44.7 POC Hct MCV 89.4 MCH 29.4 MCHC 32.9 RDW Std Deviation 45.4 RDW Coeff of [place]arrison 13.9 Plt Count 214 MPV 9.9 Absolute Nucleated RBC 0.06 H Nucleated RBC % (auto) 0.3 Neutrophils % (Manual) 58.5 Lymphocytes % (Manual) 30.5 Monocytes % (Manual) 5.9 Metamyelocytes % (Man) 1.7 Myelocytes % (Man) 3.4 Neutrophils # (Manual) 10.93 H Total Absolute Neuts 10.93 H Lymphocytes # (Manual) 5.70 H Total Abs Lymphocytes 5.70 H Monocytes # (Manual) 1.10 H Metamyelocytes # (Man) 0.32 H Myelocytes # (Manual) 0.64 H Blood Smear Review Pending Echinocytes 1+ PT 16.7 H INR 1.7 H APTT 66.9 H* PTT Ratio 2.5 POC pH POC pCO2 POC pO2 POC HCO3 POC Base Excess POC ABG O2 Sat VBG pH VBG pCO2 VBG pO2 VBG HCO3 VBG O2 Saturation VBG Base Excess Barometric Pressure POC Sodium Sodium 146 H POC Potassium Potassium POC Chloride Chloride 114 H Carbon Dioxide 17 L POC Total CO2 Anion Gap 14.0 H POC Anion Gap POC BUN BUN 12 Creatinine 1.20 POC Creatinine Est Cr Clr Drug Dosing 73.5 Est GFR ( Amer) 79.5 Est GFR (Non-Af Amer) 68.6 BUN/Creatinine Ratio 10.0 Glucose 166 H POC Glucose (other) Osmolality Lactate Calcium 8.1 L POC Ioniz Calcium [place] Total Bilirubin Direct Bilirubin AST ALT Alkaline Phosphatase Troponin I 1.480 H* Total Protein Albumin Globulin Albumin/Globulin Ratio Beta-Hydroxybutyric Acd Urine Color Urine Appearance Urine pH Ur Specific [place] Urine Protein Urine Glucose (UA) Urine Ketones Urine Blood Urine Nitrite Urine Bilirubin Urine Urobilinogen Ur Leukocyte Esterase Urine WBC (Auto) Urine RBC (Auto) U Hyaline Cast (Auto) U Epithel Cells (Auto) Urine Bacteria (Auto) Urine Osmolality Ur Random Sodium Nasal Screen MRSA (PCR) Salicylates Acetaminophen COVID-19 Eval Order SARS-CoV-2 (PCR) Influenza Type A (PCR) Influenza Type B (PCR) RSV (RT-PCR) 03/09/21 03/09/21 03/09/21 14:42 14:42 14:42 WBC RBC Hgb POC Hgb Hct POC Hct MCV MCH MCHC RDW Std Deviation RDW Coeff of [place] Plt Count MPV Absolute Nucleated RBC Nucleated RBC % (auto) Neutrophils % (Manual) Lymphocytes % (Manual) Monocytes % (Manual) Metamyelocytes % (Man) Myelocytes % (Man) Neutrophils # (Manual) Total Absolute Neuts Lymphocytes # (Manual) Total Abs Lymphocytes Monocytes # (Manual) Metamyelocytes # (Man) Myelocytes # (Manual) Blood Smear Review Echinocytes PT INR APTT PTT Ratio POC pH POC pCO2 POC pO2 POC HCO3 POC Base Excess POC ABG O2 Sat VBG pH 6.88 L VBG pCO2 90 H VBG pO2 64 VBG HCO3 16 VBG O2 Saturation 75.6 VBG Base Excess -18.6 Barometric Pressure 729.6 POC Sodium Sodium POC Potassium Potassium POC Chloride Chloride Carbon Dioxide POC Total CO2 Anion Gap POC Anion Gap POC BUN BUN Creatinine POC Creatinine Est Cr Clr Drug Dosing Est GFR ( Amer) Est GFR (Non-Af Amer) BUN/Creatinine Ratio Glucose POC Glucose (other) Osmolality Lactate 13.6 H* Calcium POC Ioniz Calcium [place]ata Total Bilirubin Direct Bilirubin AST ALT Alkaline Phosphatase Troponin I Total Protein Albumin Globulin Albumin/Globulin Ratio Beta-Hydroxybutyric Acd Urine Color Urine Appearance Urine pH Ur Specific [place] Urine Protein Urine Glucose (UA) Urine Ketones Urine Blood Urine Nitrite Urine Bilirubin Urine Urobilinogen Ur Leukocyte Esterase Urine WBC (Auto) Urine RBC (Auto) U Hyaline Cast (Auto) U Epithel Cells (Auto) Urine Bacteria (Auto) Urine Osmolality Ur Random Sodium Nasal Screen MRSA (PCR) Salicylates < 1.7 L Acetaminophen 4 L COVID-19 Eval Order SARS-CoV-2 (PCR) Influenza Type A (PCR) Influenza Type B (PCR) RSV (RT-PCR) 03/09/21 03/09/21 03/09/21 14:47 15:36 15:36 WBC RBC Hgb POC Hgb Hct POC Hct MCV MCH MCHC RDW Std Deviation RDW Coeff of [place] Plt Count MPV Absolute Nucleated RBC Nucleated RBC % (auto) Neutrophils % (Manual) Lymphocytes % (Manual) Monocytes % (Manual) Metamyelocytes % (Man) Myelocytes % (Man) Neutrophils # (Manual) Total Absolute Neuts Lymphocytes # (Manual) Total Abs Lymphocytes Monocytes # (Manual) Metamyelocytes # (Man) Myelocytes # (Manual) Blood Smear Review Echinocytes PT INR APTT PTT Ratio POC pH POC pCO2 POC pO2 POC HCO3 POC Base Excess POC ABG O2 Sat VBG pH VBG pCO2 VBG pO2 VBG HCO3 VBG O2 Saturation VBG Base Excess Barometric Pressure POC Sodium Sodium POC Potassium Potassium POC Chloride Chloride Carbon Dioxide POC Total CO2 Anion Gap POC Anion Gap POC BUN BUN Creatinine POC Creatinine Est Cr Clr Drug Dosing Est GFR ( Amer) Est GFR (Non-Af Amer) BUN/Creatinine Ratio Glucose POC Glucose (other) Osmolality 317 H Lactate Calcium POC Ioniz Calcium [place] Total Bilirubin Direct Bilirubin AST ALT Alkaline Phosphatase Troponin I Total Protein Albumin Globulin Albumin/Globulin Ratio Beta-Hydroxybutyric Acd Urine Color Yellow Urine Appearance Clear Urine pH 7.5 Ur Specific [place] 1.015 Urine Protein 2+ H Urine Glucose (UA) Trace H Urine Ketones Negative Urine Blood 3+ H Urine Nitrite Negative Urine Bilirubin Negative Urine Urobilinogen Negative Ur Leukocyte Esterase Negative Urine WBC (Auto) >30 H Urine RBC (Auto) 0-4 U Hyaline Cast (Auto) 1-5 U Epithel Cells (Auto) 5-10 H Urine Bacteria (Auto) Negative Urine Osmolality 294 L Ur Random Sodium Nasal Screen MRSA (PCR) Salicylates Acetaminophen COVID-19 Eval Order SARS-CoV-2 (PCR) Influenza Type A (PCR) Influenza Type B (PCR) RSV (RT-PCR) 03/09/21 03/09/21 03/09/21 15:36 16:08 16:26 WBC RBC Hgb POC Hgb Hct POC Hct MCV MCH MCHC RDW Std Deviation RDW Coeff of [place] Plt Count MPV Absolute Nucleated RBC Nucleated RBC % (auto) Neutrophils % (Manual) Lymphocytes % (Manual) Monocytes % (Manual) Metamyelocytes % (Man) Myelocytes % (Man) Neutrophils # (Manual) Total Absolute Neuts Lymphocytes # (Manual) Total Abs Lymphocytes Monocytes # (Manual) Metamyelocytes # (Man) Myelocytes # (Manual) Blood Smear Review Echinocytes PT INR APTT PTT Ratio POC pH POC pCO2 POC pO2 POC HCO3 POC Base Excess POC ABG O2 Sat VBG pH VBG pCO2 VBG pO2 VBG HCO3 VBG O2 Saturation VBG Base Excess Barometric Pressure POC Sodium Sodium POC Potassium Potassium POC Chloride Chloride Carbon Dioxide POC Total CO2 Anion Gap POC Anion Gap POC BUN BUN Creatinine POC Creatinine Est Cr Clr Drug Dosing Est GFR ( Amer) Est GFR (Non-Af Amer) BUN/Creatinine Ratio Glucose POC Glucose (other) Osmolality Lactate 7.2 H* Calcium POC Ioniz Calcium [place] Total Bilirubin 0.4 Direct Bilirubin AST 623 H ALT 625 H Alkaline Phosphatase 96 Troponin I Total Protein 2.8 L Albumin 1.3 L Globulin Albumin/Globulin Ratio Beta-Hydroxybutyric Acd Urine Color Urine Appearance Urine pH Ur Specific [place] Urine Protein Urine Glucose (UA) Urine Ketones Urine Blood Urine Nitrite Urine Bilirubin Urine Urobilinogen Ur Leukocyte Esterase Urine WBC (Auto) Urine RBC (Auto) U Hyaline Cast (Auto) U Epithel Cells (Auto) Urine Bacteria (Auto) Urine Osmolality Ur Random Sodium 113 Nasal Screen MRSA (PCR) Salicylates Acetaminophen COVID-19 Eval Order SARS-CoV-2 (PCR) Influenza Type A (PCR) Influenza Type B (PCR) RSV (RT-PCR) 03/09/21 03/09/21 03/09/21 18:00 19:10 19:14 WBC RBC Hgb POC Hgb Hct POC Hct MCV MCH MCHC RDW Std Deviation RDW Coeff of [place] Plt Count MPV Absolute Nucleated RBC Nucleated RBC % (auto) Neutrophils % (Manual) Lymphocytes % (Manual) Monocytes % (Manual) Metamyelocytes % (Man) Myelocytes % (Man) Neutrophils # (Manual) Total Absolute Neuts Lymphocytes # (Manual) Total Abs Lymphocytes Monocytes # (Manual) Metamyelocytes # (Man) Myelocytes # (Manual) Blood Smear Review Echinocytes PT INR APTT PTT Ratio POC pH 7.11 L* POC pCO2 63 H POC pO2 70 L POC HCO3 20 POC Base Excess -10.0 L POC ABG O2 Sat 86.0 L VBG pH VBG pCO2 VBG pO2 VBG HCO3 VBG O2 Saturation VBG Base Excess Barometric Pressure POC Sodium Sodium POC Potassium Potassium POC Chloride Chloride Carbon Dioxide POC Total CO2 22 L Anion Gap POC Anion Gap POC BUN BUN Creatinine POC Creatinine Est Cr Clr Drug Dosing Est GFR ( Amer) Est GFR (Non-Af Amer) BUN/Creatinine Ratio Glucose POC Glucose (other) Osmolality Lactate 7.7 H* Calcium POC Ioniz Calcium [place] Total Bilirubin Direct Bilirubin AST ALT Alkaline Phosphatase Troponin I Total Protein Albumin Globulin Albumin/Globulin Ratio Beta-Hydroxybutyric Acd Urine Color Urine Appearance Urine pH Ur Specific [place] Urine Protein Urine Glucose (UA) Urine Ketones Urine Blood Urine Nitrite Urine Bilirubin Urine Urobilinogen Ur Leukocyte Esterase Urine WBC (Auto) Urine RBC (Auto) U Hyaline Cast (Auto) U Epithel Cells (Auto) Urine Bacteria (Auto) Urine Osmolality Ur Random Sodium Nasal Screen MRSA (PCR) Negative Salicylates Acetaminophen COVID-19 Eval Order SARS-CoV-2 (PCR) Influenza Type A (PCR) Influenza Type B (PCR) RSV (RT-PCR) 03/09/21 03/09/21 20:35 21:34 WBC RBC Hgb POC Hgb Hct POC Hct MCV MCH MCHC RDW Std Deviation RDW Coeff of [place] Plt Count MPV Absolute Nucleated RBC Nucleated RBC % (auto) Neutrophils % (Manual) Lymphocytes % (Manual) Monocytes % (Manual) Metamyelocytes % (Man) Myelocytes % (Man) Neutrophils # (Manual) Total Absolute Neuts Lymphocytes # (Manual) Total Abs Lymphocytes Monocytes # (Manual) Metamyelocytes # (Man) Myelocytes # (Manual) Blood Smear Review Echinocytes PT INR APTT PTT Ratio POC pH POC pCO2 POC pO2 POC HCO3 POC Base Excess POC ABG O2 Sat VBG pH VBG pCO2 VBG pO2 VBG HCO3 VBG O2 Saturation VBG Base Excess Barometric Pressure POC Sodium Sodium 142 POC Potassium Potassium 3.7 POC Chloride Chloride 109 H Carbon Dioxide 19 L POC Total CO2 Anion Gap 14.0 H POC Anion Gap POC BUN BUN 24 H D Creatinine 1.94 H D POC Creatinine Est Cr Clr Drug Dosing 45.5 Est GFR ( Amer) 44.5 Est GFR (Non-Af Amer) 38.4 BUN/Creatinine Ratio 12.6 Glucose 345 H* POC Glucose (other) Osmolality Lactate Calcium 7.5 L POC Ioniz Calcium [place] Total Bilirubin 0.8 Direct Bilirubin AST 1403 H ALT 1169 H Alkaline Phosphatase 204 H D Troponin I Total Protein 4.8 L D Albumin 2.5 L Globulin 2.3 L Albumin/Globulin Ratio 1.1 Beta-Hydroxybutyric Acd Cancelled Urine Color Urine Appearance Urine pH Ur Specific [place] Urine Protein Urine Glucose (UA) Urine Ketones Urine Blood Urine Nitrite Urine Bilirubin Urine Urobilinogen Ur Leukocyte Esterase Urine WBC (Auto) Urine RBC (Auto) U Hyaline Cast (Auto) U Epithel Cells (Auto) Urine Bacteria (Auto) Urine Osmolality Ur Random Sodium Nasal Screen MRSA (PCR) Salicylates Acetaminophen COVID-19 Eval Order SARS-CoV-2 (PCR) Influenza Type A (PCR) Influenza Type B (PCR) RSV (RT-PCR) Diagnostic Findings Cervical Spine CT 03/09/21 14:[address] DOSE: 1953.68 mGy.cm HISTORY: Suicide attempt. hanging TECHNIQUE: Multiaxial CT images of the cervical spine were performed and reformatted in the sagittal and coronal plane without the use of contrast. A dose lowering technique was utilized adhering to the principles of ALARA. COMPARISON: Cervical spine CT 11/19/2017. FINDINGS: Reversal the normal lordotic curvature. No acute fracture or subluxation. Anterior cervical discectomy and fusion at C6-C7. The hardware appears intact. An endotracheal tube is partially visualized. Prevertebral soft tissues are maintained. Old nonunited fracture seen within the superior facets of C3 and C4. These demonstrate sclerotic margins. No pneumothorax. Consolidation and interlobular septal thickening within the lung apices. IMPRESSION: 1. No acute fractures within the cervical spine. 2. Consolidation and interlobular septal thickening within the lung apices. This could be due to a pneumonia or pulmonary edema. ACT 112: Negative or not required by law. Electronically signed by: Iglesia Harris M.D. 03/09/2021 3:[address] 03/09/21 14:[address] DOSE: HISTORY: Suicide attempt. hanging TECHNIQUE: Multiaxial CT images of the head were performed without the use of intravenous contrast. Automated exposure control was utilized for this study. A dose lowering technique was utilized adhering to the principles of ALARA. Comparison: Head CT 10/14/2020. Findings: The paranasal sinuses and mastoid air cells are clear. Scattered old alejandro hole seen within the calvarium. No calvarial fractures. There is no mass, hematoma or midline shift. There is diffuse cerebral edema with diffuse loss of the campbell-white junction and effacement of the basilar cisterns. Findings are consistent with a diffuse hypoxic/anoxic brain injury. Impression: There is diffuse cerebral edema with diffuse loss of the campbell-white junction and effacement of the basilar cisterns. Findings are consistent with a diffuse hypoxic/anoxic brain injury. ACT 112: Negative or not required by law. Electronically signed by: Iglesia Harris M.D. 03/09/2021 3:07 PM Head CTA 03/09/21 14:16 HEAD & NECK CTA HISTORY: Suicide attempt. hanging TECHNIQUE: Multiaxial CT images of the head were performed following the intravenous administration of contrast to evaluate the major cerebral vessels. Multiaxial CT images of the neck were also performed following the intravenous administration of contrast to evaluate the major cervical vessels. Maximum intensity projection images were also obtained. A dose lowering technique was utilized adhering to the principles of ALARA. COMPARISON: Head CT 03/09/2021. FINDINGS: Diffuse cerebral edema consistent with a hypoxic/anoxic brain injury is again noted. Visualized intracranial internal carotid arteries, distal vertebral a rteries, and basilar artery are widely patent. There is no significant stenosis, occlusion, or aneurysm seen within the bilateral ACAs, MCAs, or pick up attendant. The major dural venous sinuses are patent. The aortic arch and proximal great vessels are widely patent. There is no significant stenosis, occlusion, or dissection identified within the bilateral common carotid, internal carotid, or vertebral arteries. No pneumothorax. Dense consolidation within the upper lung zones posteriorly with associated groundglass densities and interlobular septal thickening. This could represent pulmonary edema or pneumonia. Endotracheal tube terminates 2 cm from the pj. Old, healed right clavicle fracture. C6-C7 ACDF. IMPRESSION: 1. No significant stenosis, occlusion, or aneurysm within the lime of Bass. 2. No significant stenosis, occlusion, or dissection identified within the carotid or vertebral arteries. 3. Diffuse cerebral edema consistent with a hypoxic/anoxic brain injury. 4. Dense consolidation within the upper lung zones with associated groundglass densities and interlobular septal thickening. This may represent pulmonary edema or pneumonia. 5. Endotracheal tube terminates 2 cm from the pj. ACT 112: Negative or not required by law. Electronically signed by: Iglesia Harris M.D. 03/09/2021 3:18 PM Neck CTA 03/09/21 14:16 HEAD & NECK CTA HISTORY: Suicide attempt. hanging TECHNIQUE: Multiaxial CT images of the head were performed following the intravenous administration of contrast to evaluate the major cerebral vessels. Multiaxial CT images of the neck were also performed following the intravenous administration of contrast to evaluate the major cervical vessels. Maximum intensity projection images were also obtained. A dose lowering technique was utilized adhering to the principles of ALARA. COMPARISON: Head CT 03/09/2021. FINDINGS: Diffuse cerebral edema consistent with a hypoxic/anoxic brain injury is again noted. Visualized intracranial internal carotid arteries, distal vertebral arteries, and basilar artery are widely patent. There is no significant stenosis, occlusion, or aneurysm seen within the bilateral ACAs, MCAs, or pick up attendant. The major dural venous sinuses are patent. The aortic arch and proximal great vessels are widely patent. There is no significant stenosis, occlusion, or dissection identified within the bilateral common carotid, internal carotid, or vertebral arteries. No pneumothorax. Dense consolidation within the upper lung zones posteriorly with associated groundglass densities and interlobular septal thickening. This could represent pulmonary edema or pneumonia. Endotracheal tube terminates 2 cm from the pj. Old, healed right clavicle fracture. C6-C7 ACDF. IMPRESSION: 1. No significant stenosis, occlusion, or aneurysm within the lime of Bass. 2. No significant stenosis, occlusion, or dissection identified within the carotid or vertebral arteries. 3. Diffuse cerebral edema consistent with a hypoxic/anoxic brain injury. 4. Dense consolidation within the upper lung zones with associated groundglass densities and interlobular septal thickening. This may represent pulmonary edema or pneumonia. 5. Endotracheal tube terminates 2 cm from the pj. ACT 112: Negative or not required by law. Electronically signed by: Iglesia Harris M.D. 03/09/2021 3:18 PM Chest X-Ray 03/09/21 14:17 XR chest 1V portable HISTORY: Suicide attempt. Endotracheal tube placement. COMPARISON: Chest 07/26/2020. FINDINGS: Endotracheal tube terminates 2.9 cm from the pj. There is a markedly distended and gas-filled stomach. Near diffuse hazy airspace opacities within the lungs. No pleural effusions. No pneumothorax. The heart is top normal in size. There is also perihilar interstitial/vascular thickening. Old, healed right-sided clavicle fracture. IMPRESSION: 1. The endotracheal tube terminates 2.9 cm from the pj. 2. Near diffuse bilateral hazy airspace opacities. This could represent pulmonary edema or an atypical pneumonia. ACT 112: Negative or not required by law. Electronically signed by: Iglesia Harris M.D. 03/09/2021 2:48 PM KUB X-Ray 03/09/21 15:52 KUB HISTORY: cardiac arrest; abd distension COMPARISON: KUB 03/03/2021. FINDINGS: Contrast within the bladder from the recent CT examination. There is a shunt catheter within the lower abdomen. Severely distended and gas-filled stomach. There are mildly distended gas and stool-filled loops of large and small bowel. These findings favor an ileus. A rectal catheter is also noted. There appears to be a nasogastric tube with the tip terminating in the proximal stomach just beyond the gastroesophageal junction. No renal calculi. No ureteral calculi. No pneumoperitoneum or pneumatosis. IMPRESSION: 1. Severely distended gas-filled stomach. There are also mildly distended gas and stool-filled loops of large and small bowel. This favors an ileus. 2. The tip of the nasogastric tube terminates in the proximal stomach just beyond the gastroesophageal junction. ACT 112: Negative or not required by law. Electronically signed by: Iglesia Harris M.D. 03/09/2021 4:18 PM Chest X-Ray 03/09/21 17:27 XR chest 1V portable HISTORY: Evaluate central line placement. COMPARISON: Chest 03/09/2021. FINDINGS: The tip of the nasogastric tube terminates at the proximal stomach just beyond the gastroesophageal junction. This could be advanced by approximat seth 5 to 10 cm. Interval placement left subclavian central venous catheter terminates in the expected location of the SVC. Endotracheal tube terminates 3.8 cm from the pj. Old, healed right clavicle fracture. Cervical spinal fusion hardware is again noted. Bilateral hazy airspace opacities persist. The heart is normal in size. IMPRESSION: 1. Nasogastric tube terminates in the proximal stomach. This should be advanced by approximately 5 to 10 cm. 2. Endotracheal tube and left subclavian central venous catheter appear in good position. 3. No change in the bilateral hazy airspace opacities. ACT 112: Negative or not required by law. Electronically signed by: Iglesia Harris M.D. 03/09/2021 6:01 PM EKG - my reading - NSR, RBBB, lateral ST segment depression (mild) Code Status & VTE Plan VTE Prophylaxis Plan VTE Prophylaxis will be ordered: Yes Critical Care Time Critical Care Time: Yes Total Critical Care Time: 90 PG Care Time/CCT Total # of Minutes Spent Total Time Spent with Patient: Total time spent is greater than 50% in coordination of care (as documented) at patient's floor/unit and/or counseling patient: Critical Care Time: Yes Total Critical Care Time: 90 Coding Level of Care Code None Diagnoses Suicide attempt by hanging T71.162A Encounter type: initial encounter Cardiac arrest I46.9 Shock circulatory R57.9 Anoxic brain injury G93.1 Coagulopathy D68.9 Lactic acidosis E87.2 Shock liver K72.00 Acute renal failure due to tubular necrosis N17.0 Multiple sclerosis G35 Asthma J45.909 Bipolar disorder F31.9 HTN (hypertension) I10 Hypertension type: essential hypertension Diabetes E11.9 Poor prognosis Z78.9 Additional Codes Critical Care Time - Critical Care Time: Yes ([id number]) Time Spent (min) 90 (1) Suicide attempt by hanging Encounter type: initial encounter Qualified Code(s): T71.162A - Asphyxiation due to hanging, intentional self-harm, initial encounter (2) HTN (hypertension) Hypertension type: essential hypertension Qualified Code(s): I10 - Essential (primary) hypertension
--- NOTE | 2021-03-09 16:20 | XRay Report ---
KUB HISTORY: cardiac arrest; abd distension COMPARISON: KUB 03/03/2021. FINDINGS: Contrast within the bladder from the recent CT examination. There is a shunt catheter withi n the lower abdomen. Severely distended and gas-filled stomach. There are mildly distended gas and st ool-filled loops of large and small bowel. These findings favor an ileus. A rectal catheter is also n oted. There appears to be a nasogastric tube with the tip terminating in the proximal stomach just be yond the gastroesophageal junction. No renal calculi. No ureteral calculi. No pneumoperitoneum or pn eumatosis. IMPRESSION: 1. Severely distended gas-filled stomach. There are also mildly distended gas and stool-filled loops of large and small bowel. This favors an ileus. 2. The tip of the nasogastric tube terminates in the proximal stomach just beyond the gastroesophagea l junction. ACT 112: Negative or not required by law. Electronically signed by: Iglesia Harris M.D. 03/09/2021 4:18 PM
--- NOTE | 2021-03-09 16:27 | Critical Care Consultation ---
Date of Consultation March 09, 2021 Assessment & Plan (1) Anoxic brain injury: Impression: 55-year-old male status post suicide attempt by hanging. He has profound acidosis with suggest a prolonged downtime as well as already changes on his CT scan of the head suggesting a fairly lengthy and profound anoxic injury. My suspicion is that the patient may be or will likely progressed to brain fairly rapidly. Recommendations: 1. Neurologic: Devastating anoxic injury. No indication for hypothermia protocol given the early changes on the CT scan. Will need to normalize his electrolyte abnormalities to allow for potential brain examination. Will request EEG in the morning. Hold all sedative medications unless the patient exhibits some sort of spontaneous movements. Pupillary exam may be somewhat unreliable given the fact that he received epinephrine as part of his ACLS protocol. Depending on his hemodynamics, we may consider an apnea test or potential cerebral perfusion study in the morning although his CT angiogram performed today did demonstrate filling of the intracranial vessels. He is at risk for neurological complications including herniation and diabetes insipidus. Given the early findings and probable prolonged downtime, I do not think additional CPR is warranted therefore will change the patient's CODE STATUS to DO NOT RESUSCITATE. Will likely need formal neurology consultation tomorrow to assist with brain determination. 2. Cardiovascular: Shock likely due to profound and prolonged anoxia. Currently on epinephrine. Wean as tolerated. Elevated troponin is likely secondary to anoxia. No indication for serial monitoring at this point time. 3. Pulmonary: Arterial line will be placed to assist in ventilator management. We will try and normalize the patient's PCO2/pH as much as possible. The CT findings may represent atypical pulmonary edema. We will check tracheal aspirates. Hold antibiotics for now. 4. Renal: Baseline creatinine of 0.5-0.7, currently 1.2. Will need to follow closely. Again the patient is at risk for developing diabetes insipidus or cerebral salt wasting syndrome. Her urine output should prompt reassessment of serum and urine osmolarity as well as sodium levels and consideration for saline repletion versus DDAVP. 5. GI: Keep n.p.o. for now. AST and ALT are already elevated again suggestive of prolonged downtime. 6. Heme-onc: Patient has an elevated white blood cell count which is likely stress response. Hemoglobin hematocrit and platelet counts are normal. We will follow clinically for now. 7. Endocrine: Glycemic control per protocol. 8. ID: Hold antibiotics for now. Additional recommendations will be based on clinical response The prognosis at this point time appears to be fairly dismal as the patient already has shock liver, elevated troponin, profound acidosis with increased lactate, and loss of campbell-white matter interface all suggestive of prolonged and pervasive hypoxemia and hypotension. I do not believe this is a survivable injury. We will have nursing contact gift of life. There is no family immediately available to update and will defer to the skilled nursing to update the patient's family/POA. A total of 75 minutes critical care time was spent evaluation management stabilization this patient with life-threatening illness excluding procedures. (2) Lactic acidosis: (3) Cardiac arrest: (4) Suicide attempt by hanging: History of Present Illness History of Present Illness Asked by hospitalist to assist in evaluation management this patient. Discussed with ER staff and with admitting hospitalist. Patient is intubated and unresponsive and unable to provide any history. This 55-year-old inmate has a history of multiple sclerosis with a history of a MULTIPLE DRUM SANDER shunt asthma bipolar and diabetes as well as seizure activity who was brought to the emergency room as a CODE BLUE after found in the skilled nursing with an attempted hanging by way of an electrical cord. It is unclear when the patient was last seen normal. When he was found an AED was applied and he received 1 shock by report from EMS. He lost pulses again in transit to the hospital. Epinephrine was again given for PEA. He had return of spontaneous circulation. He was intubated in the emergency room. He is found to be severely acidotic with a markedly elevated lactate. CT of the head already demonstrated loss of campbell- white matter interface. He was profoundly acidotic and has been initiated on an epinephrine infusion. Multiple boluses of bicarb were also administered. He reportedly was not given any sedation in the emergency room and has fixed and dilated pupils and has not demonstrated any spontaneous movements. Allergies Allergy/AdvReac Type Severity Reaction Status Date / Time codeine Allergy Unknown Gastrointestinal Verified 03/09/21 14:47 Upset methadone Allergy Unknown SCI LIST Verified 03/09/21 14:47 Penicillins Allergy Unknown SCI LIST Verified 03/09/21 14:47 quetiapine Allergy Unknown SCI LIST Verified 03/09/21 14:47 [id number]-[id number]-Pss Reductase Allergy Unknown SCI LIST Verified 03/09/21 14:47 Inhibitor tetracycline Allergy Unknown SCI LIST Verified 03/09/21 14:47 Home Medications Medication Instructions Recorded Confirmed Type pramipexole 1 mg tablet 1 mg PO TID 08/16/18 03/09/21 History pregabalin 200 mg capsule 200 mg PO BID 08/16/18 03/09/21 History cholecalciferol (vitamin D3) 5,000 unit PO QAM 03/26/19 03/09/21 History [Vitamin D3] lamotrigine 50 mg PO BID 03/26/19 03/09/21 History lamotrigine 200 mg PO BID 03/30/19 03/09/21 History furosemide 20 mg PO QAM PRN 05/31/19 03/09/21 History sennosides [senna] 17.2 mg PO HS PRN 05/31/19 03/09/21 History verapamil 180 mg PO QAM 05/31/19 03/09/21 History tramadol 100 mg PO TID PRN 06/04/19 03/09/21 History biotin 5,000 mcg SUBLINGUAL DAILY 07/26/20 03/09/21 History hydroxyzine pamoate [Vistaril] 50 mg PO BID 07/26/20 03/09/21 History levalbuterol tartrate [Xopenex HFA] 2 inh INHALATION QID PRN 07/26/20 03/09/21 History tiotropium bromide [Spiriva with 1 cap INHALATION DAILY@0630 07/26/20 03/09/21 History HandiHaler] ammonium lactate 1 applic TOPICAL DAILY 03/09/21 03/09/21 History modafinil 200 mg PO QAM 03/09/21 03/09/21 History saliva substitute combo no.9 1 ea PO TID 03/09/21 03/09/21 History [Biotene Dry Mouth Oral Rinse] sulfamethoxazole-trimethoprim 1 tab PO Q12H 03/09/21 03/09/21 History [Sulfatrim DS] ubrogepant [Ubrelvy] 100 mg PO DIRECTED PRN MDD 2 03/09/21 03/09/21 History TAB/24 HOURS zinc oxide-cod liver oil [Desitin] 1 applic TOPICAL TID PRN 03/09/21 03/09/21 History Patient History Medical History (Updated 03/09/21 @ 16:19 by Sonido Marie) Adult antisocial behavior Anxiety Asthma Bipolar disorder Bowel obstruction Cannabis abuse Charcot foot due to diabetes mellitus Diabetic neuropathy GERD (gastroesophageal reflux disease) HTN (hypertension) Hx MRSA infection Hydrocephalus PER PT VERBAL REPORT IBS (irritable bowel syndrome) Insomnia Multiple sclerosis Narcolepsy PER PT REPORT Restless legs syndrome Seizure Sleep apnea Vitamin D deficiency Surgical History S/P brain surgery S/P colostomy S/P colostomy takedown S/P foot surgery S/P hernia repair S/P tonsillectomy S/P MULTIPLE DRUM SANDER shunt Social History Smoking Status: Unknown if ever smoked Cigarettes Per Day: 10; Hx Alcohol Use: No Hx Substance Use: No Preferred Language: Czech Communication Ability: Effective Visual Impairment: Diminished Hearing Ability: Normal Intermediate Designer Required: No Beliefs That Will Affect Care: Yazidi Yazidi Beliefs: Bahai marital status: Unknown Current Living Situation: Other Current Living Situation Comment: [facility] current occupational status: disabled Feels Safe at Home: Yes Assistive Devices: Denture - Upper, Denture - Lower and Walker Review of Systems Review of Systems: Unobtainable due to endotracheal tube and Unobtainable due to reduced consciousness Physical Exam Constitutional: Intubated. Off all sedation Neck: trachea midline, no thyromegaly Respiratory: normal respiratory effort, lungs clear to auscultation Cardiovascular: RRR, no murmur, no edema Gastrointestinal (Abdomen): normal bowel sounds, soft, nontender, no hepatos plenomegaly Musculoskeletal: Extremities: extremities normal to inspection Skin: Extremities are mottled and cold to touch with delayed capillary refill Neurologic: No withdrawal to painful stimulus. Pupils fixed and dilated. Oculocephalic reflex is absent. Does not over breathe the vent Lymphatic: no cervical lymphadenopathy Results & Data Results & Data ([facility]) Vital Signs (Past 12 Hours) Vital Signs Pulse Resp BP Pulse Ox 03/09/21 16:16 81 111/64 98 03/09/21 16:14 80 109/69 97 03/09/21 16:12 79 103/67 97 03/09/21 16:10 77 89/59 L 99 03/09/21 16:08 78 88/53 L 99 03/09/21 16:06 82 108/70 97 03/09/21 16:04 82 114/69 96 03/09/21 16:02 80 107/67 97 03/09/21 16:00 80 110/64 97 03/09/21 15:58 80 109/65 96 03/09/21 15:56 79 109/65 96 03/09/21 15:54 80 113/66 95 03/09/21 15:52 79 112/70 94 03/09/21 15:50 79 112/65 95 03/09/21 15:48 79 113/66 95 03/09/21 15:46 79 111/70 95 03/09/21 15:44 78 115/66 94 03/09/21 15:42 79 112/65 95 03/09/21 15:40 78 113/64 99 03/09/21 15:38 78 115/67 99 03/09/21 15:36 77 115/66 98 03/09/21 15:34 77 116/66 100 03/09/21 15:32 77 113/66 99 03/09/21 15:30 77 114/65 99 03/09/21 15:28 77 24 119/71 98 03/09/21 15:26 76 118/69 98 03/09/21 15:24 76 118/70 98 03/09/21 15:22 77 117/73 98 03/09/21 15:20 76 119/72 98 03/09/21 15:18 76 123/74 98 03/09/21 15:16 77 124/78 98 03/09/21 15:14 77 132/78 99 03/09/21 15:12 78 152/90 H 98 03/09/21 15:10 77 155/91 H 98 03/09/21 15:08 77 158/93 H 98 03/09/21 15:06 78 161/96 H 98 03/09/21 15:04 78 159/93 H 97 03/09/21 15:02 79 162/95 H 96 03/09/21 14:36 91 H 124/69 96 03/09/21 14:35 86 118/68 96 03/09/21 14:32 76 75/40 L 96 03/09/21 14:31 76 59/41 L 97 03/09/21 14:30 77 03/09/21 14:28 78 95 03/09/21 14:26 78 71/41 L 94 03/09/21 14:25 79 20 71/41 L 93 03/09/21 14:24 79 90 03/09/21 14:22 80 86 L 03/09/21 14:21 80 20 92 03/09/21 14:20 81 90 03/09/21 14:18 83 88 L Laboratory Results 03/09/21 14:42 03/09/21 14:42 Potassium 5.4 INR 1.7 Venous blood gas showed pH 6.88 with a PCO2 of 90 Calcium 8.1 Troponin I 0.48 Salicylates and acetaminophen undetectable Covid test negative Diagnostic Findings Chest x-ray was independently reviewed. Endotracheal tube is in good position. Marked distention of the stomach with gas was noted. No eric airspace opacities identified. Head CT independently reviewed. Diffuse cerebral edema with loss of campbell-white matter interface and effacement of the basilar cisterns. No fractures identified. CT angiogram demonstrated no significant stenosis or aneurysm. Again diffuse cerebral edema was identified Cervical C-spine films showed no evidence of fracture.. Coding Level of Care Code Critical Care 1st 30-74 mins Diagnoses Anoxic brain injury G93.1 Lactic acidosis E87.2 Cardiac arrest I46.9 Suicide attempt by hanging T71.162A Time Spent (min) 79 Comment [id number] and [id number]
--- NOTE | 2021-03-09 16:34 | Emergency Department Note ---
History of Present Illness General Chief Complaint: Cardiac Arrest/CPR Source: EMS Mode of arrival: EMS History of Present Illness Provider complaint: other (Found to 1250 with hanging injury.) Timing confirmed by: police Place: other ([facility]) Bystander CPR performed: Yes AED applied by bystander/firefighter type one: Yes Shock advised: Yes Number of shocks delivered: 1 Initial findings in the field: unresponsive ROSC in the field: Yes Treatments prior to arrival: intubation, BMV, chest compressions, defibrillated shocks # (1) and epinephrine mgs # (2) Home Medications Medication Instructions Recorded Confirmed Type pramipexole 1 mg tablet 1 mg PO TID 08/16/18 03/09/21 History pregabalin 200 mg capsule 200 mg PO BID 08/16/18 03/09/21 History cholecalciferol (vitamin D3) 5,000 unit PO QAM 03/26/19 03/09/21 History [Vitamin D3] lamotrigine 50 mg PO BID 03/26/19 03/09/21 History lamotrigine 200 mg PO BID 03/30/19 03/09/21 History furosemide 20 mg PO QAM PRN 05/31/19 03/09/21 History sennosides [senna] 17.2 mg PO HS PRN 05/31/19 03/09/21 History verapamil 180 mg PO QAM 05/31/19 03/09/21 History tramadol 100 mg PO TID PRN 06/04/19 03/09/21 History biotin 5,000 mcg SUBLINGUAL DAILY 07/26/20 03/09/21 History hydroxyzine pamoate [Vistaril] 50 mg PO BID 07/26/20 03/09/21 History levalbuterol tartrate [Xopenex HFA] 2 inh INHALATION QID PRN 07/26/20 03/09/21 History tiotropium bromide [Spiriva with 1 cap INHALATION DAILY@0630 07/26/20 03/09/21 History HandiHaler] ammonium lactate 1 applic TOPICAL DAILY 03/09/21 03/09/21 History modafinil 200 mg PO QAM 03/09/21 03/09/21 History saliva substitute combo no.9 1 ea PO TID 03/09/21 03/09/21 History [Biotene Dry Mouth Oral Rinse] sulfamethoxazole-trimethoprim 1 tab PO Q12H 03/09/21 03/09/21 History [Sulfatrim DS] ubrogepant [Ubrelvy] 100 mg PO DIRECTED PRN MDD 2 03/09/21 03/09/21 History TAB/24 HOURS zinc oxide-cod liver oil [Desitin] 1 applic TOPICAL TID PRN 03/09/21 03/09/21 History Allergies Allergy/AdvReac Type Severity Reaction Status Date / Time codeine Allergy Unknown Gastrointestinal Verified 03/09/21 14:47 Upset methadone Allergy Unknown SCI LIST Verified 03/09/21 14:47 Penicillins Allergy Unknown SCI LIST Verified 03/09/21 14:47 quetiapine Allergy Unknown SCI LIST Verified 03/09/21 14:47 [id number] Reductase Allergy Unknown SCI LIST Verified 03/09/21 14:47 Inhibitor tetracycline Allergy Unknown SCI LIST Verified 03/09/21 14:47 Past Med/Surg History Medical History Adult antisocial behavior Anxiety Asthma Bipolar disorder Bowel obstruction Cannabis abuse Charcot foot due to diabetes mellitus Diabetic neuropathy GERD (gastroesophageal reflux disease) HTN (hypertension) Hx MRSA infection Hydrocephalus PER PT VERBAL REPORT IBS (irritable bowel syndrome) Insomnia Multiple sclerosis Narcolepsy PER PT REPORT Restless legs syndrome Seizure Sleep apnea Vitamin D deficiency Surgical History S/P brain surgery S/P colostomy S/P colostomy takedown S/P foot surgery S/P hernia repair S/P tonsillectomy S/P COMMUNICATIONS DEPARTMENT HEAD shunt Social History Smoking Status: Unknown if ever smoked Cigarettes Per Day: 10; Hx Alcohol Use: No Hx Substance Use: No Preferred Language: Montenegrin Communication Ability: Effective Visual Impairment: Diminished Hearing Ability: Normal Electrotype Finisher Required: No Beliefs That Will Affect Care: Rastafari Rastafari Beliefs: Cheondoism marital status: Unknown Current Living Situation: Other Current Living Situation Comment: [facility] [facility] current occupational status: disabled Feels Safe at Home: Yes Assistive Devices: Denture - Upper, Denture - Lower and Walker Review of Systems Unobtainable due to endotracheal tube Physical Exam Vital Signs: Vital Signs - 24 hr 03/09/21 14:13 03/09/21 14:18 03/09/21 14:19 Pulse Rate 83 Pulse Rate from Sp O2 Sensor 83 Respiratory Rate Respiratory Effort / Characteristics Mechanically Venti lated Mechanically Venti lated Respiratory Depth Normal Blood Pressure Blood Pressure Lynn n Pulse Oximetry 88 L Oxygen Delivery Me thod Mechanical Vent Oxygen Flow Rate Fraction of Inspir ed Oxygen Sepsis Recent Feve r Within 48 Hours Sepsis New/Unexpla ined Change in Men thierry Status Sepsis Action Take n by Nursing End-Tidal CO2 79 Pulse Oximetry Pos t Tiitration 03/09/21 14:20 03/09/21 14:21 03/09/21 14:22 Pulse Rate 81 80 80 Pulse Rate from Sp O2 Sensor 81 80 Respiratory Rate 20 Respiratory Effort / Characteristics Respiratory Depth Blood Pressure Blood Pressure Lynn n Pulse Oximetry 90 92 86 L Oxygen Delivery Me thod Mechanical Vent Oxygen Flow Rate 15 Fraction of Inspir ed Oxygen 100 Sepsis Recent Feve r Within 48 Hours Sepsis New/Unexpla ined Change in Men thierry Status Sepsis Action Take n by Nursing End-Tidal CO2 77 55 58 Pulse Oximetry Pos t Tiitration 83 L 03/09/21 14:24 03/09/21 14:25 03/09/21 14:26 Pulse Rate 79 79 78 Pulse Rate from Sp O2 Sensor 79 78 Respiratory Rate 20 Respiratory Effort / Characteristics Mechanically Venti lated Respiratory Depth Blood Pressure 71/41 L 71/41 L Blood Pressure Lynn n 51 51 Pulse Oximetry 90 93 94 Oxygen Delivery Me thod Mechanical Vent Oxygen Flow Rate Fraction of Inspir ed Oxygen Sepsis Recent Feve r Within 48 Hours No Sepsis New/Unexpla ined Change in Men thierry Status N/A Sepsis Action Take n by Nursing No Action Required End-Tidal CO2 59 57 Pulse Oximetry Pos t Tiitration 03/09/21 14:28 03/09/21 14:30 03/09/21 14:31 Pulse Rate 78 77 76 Pulse Rate from Sp O2 Sensor 78 76 Respiratory Rate Respiratory Effort / Characteristics Respiratory Depth Blood Pressure 59/41 L Blood Pressure Lynn n 47 Pulse Oximetry 95 97 Oxygen Delivery Me thod Oxygen Flow Rate Fraction of Inspir ed Oxygen Sepsis Recent Feve r Within 48 Hours Sepsis New/Unexpla ined Change in Men thierry Status Sepsis Action Take n by Nursing End-Tidal CO2 56 55 55 Pulse Oximetry Pos t Tiitration 03/09/21 14:32 03/09/21 14:35 03/09/21 14:36 Pulse Rate 76 86 91 H Pulse Rate from Sp O2 Sensor 76 87 91 H Respiratory Rate Respiratory Effort / Characteristics Respiratory Depth Blood Pressure 75/40 L 118/68 124/69 Blood Pressure Lynn n 51 84 87 Pulse Oximetry 96 96 96 Oxygen Delivery Me thod Oxygen Flow Rate Fraction of Inspir ed Oxygen Sepsis Recent Feve r Within 48 Hours Sepsis New/Unexpla ined Change in Men thierry Status Sepsis Action Take n by Nursing End-Tidal CO2 56 61 61 Pulse Oximetry Pos t Tiitration 03/09/21 15:02 03/09/21 15:04 03/09/21 15:06 Pulse Rate 79 78 78 Pulse Rate from Sp O2 Sensor 79 78 78 Respiratory Rate Respiratory Effort / Characteristics Respiratory Depth Blood Pressure 162/95 H 159/93 H 161/96 H Blood Pressure Lynn n 117 115 117 Pulse Oximetry 96 97 98 Oxygen Delivery Me thod Oxygen Flow Rate Fraction of Inspir ed Oxygen Sepsis Recent Feve r Within 48 Hours Sepsis New/Unexpla ined Change in Men thierry Status Sepsis Action Take n by Nursing End-Tidal CO2 56 53 53 Pulse Oximetry Pos t Tiitration 03/09/21 15:08 03/09/21 15:10 03/09/21 15:12 Pulse Rate 77 77 78 Pulse Rate from Sp O2 Sensor 77 78 78 Respiratory Rate Respiratory Effort / Characteristics Respiratory Depth Blood Pressure 158/93 H 155/91 H 152/90 H Blood Pressure Lynn n 114 112 110 Pulse Oximetry 98 98 98 Oxygen Delivery Me thod Oxygen Flow Rate Fraction of Inspir ed Oxygen Sepsis Recent Feve r Within 48 Hours Sepsis New/Unexpla ined Change in Men thierry Status Sepsis Action Take n by Nursing End-Tidal CO2 52 53 51 Pulse Oximetry Pos t Tiitration 03/09/21 15:14 03/09/21 15:16 03/09/21 15:18 Pulse Rate 77 77 76 Pulse Rate from Sp O2 Sensor 78 76 76 Respiratory Rate Respiratory Effort / Characteristics Respiratory Depth Blood Pressure 132/78 124/78 123/74 Blood Pressure Lynn n 96 93 90 Pulse Oximetry 99 98 98 Oxygen Delivery Me thod Oxygen Flow Rate Fraction of Inspir ed Oxygen Sepsis Recent Feve r Within 48 Hours Sepsis New/Unexpla ined Change in Men thierry Status Sepsis Action Take n by Nursing End-Tidal CO2 51 49 50 Pulse Oximetry Pos t Tiitration 03/09/21 15:20 03/09/21 15:22 03/09/21 15:24 Pulse Rate 76 77 76 Pulse Rate from Sp O2 Sensor 76 76 76 Respiratory Rate Respiratory Effort / Characteristics Respiratory Depth Blood Pressure 119/72 117/73 118/70 Blood Pressure Lynn n 87 87 86 Pulse Oximetry 98 98 98 Oxygen Delivery Me thod Oxygen Flow Rate Fraction of Inspir ed Oxygen Sepsis Recent Feve r Within 48 Hours Sepsis New/Unexpla ined Change in Men thierry Status Sepsis Action Take n by Nursing End-Tidal CO2 48 49 47 Pulse Oximetry Pos t Tiitration 03/09/21 15:26 03/09/21 15:28 03/09/21 15:30 Pulse Rate 76 77 77 Pulse Rate from Sp O2 Sensor 76 77 77 Respiratory Rate 24 Respiratory Effort / Characteristics Respiratory Depth Blood Pressure 118/69 119/71 114/65 Blood Pressure Lynn n 85 87 81 Pulse Oximetry 98 98 99 Oxygen Delivery Me thod Oxygen Flow Rate Fraction of Inspir ed Oxygen Sepsis Recent Feve r Within 48 Hours Sepsis New/Unexpla ined Change in Men thierry Status Sepsis Action Take n by Nursing End-Tidal CO2 48 48 43 Pulse Oximetry Pos t Tiitration 03/09/21 15:32 03/09/21 15:34 03/09/21 15:36 Pulse Rate 77 77 77 Pulse Rate from Sp O2 Sensor 77 77 77 Respiratory Rate Respiratory Effort / Characteristics Respiratory Depth Blood Pressure 113/66 116/66 115/66 Blood Pressure Lynn n 81 82 82 Pulse Oximetry 99 100 98 Oxygen Delivery Me thod Oxygen Flow Rate Fraction of Inspir ed Oxygen Sepsis Recent Feve r Within 48 Hours Sepsis New/Unexpla ined Change in Men thierry Status Sepsis Action Take n by Nursing End-Tidal CO2 45 43 43 Pulse Oximetry Pos t Tiitration 03/09/21 15:38 03/09/21 15:40 03/09/21 15:42 Pulse Rate 78 78 79 Pulse Rate from Sp O2 Sensor 78 78 78 Respiratory Rate Respiratory Effort / Characteristics Respiratory Depth Blood Pressure 115/67 113/64 112/65 Blood Pressure Lynn n 83 80 80 Pulse Oximetry 99 99 95 Oxygen Delivery Me thod Oxygen Flow Rate Fraction of Inspir ed Oxygen Sepsis Recent Feve r Within 48 Hours Sepsis New/Unexpla ined Change in Men thierry Status Sepsis Action Take n by Nursing End-Tidal CO2 43 42 42 Pulse Oximetry Pos t Tiitration 03/09/21 15:44 03/09/21 15:46 03/09/21 15:48 Pulse Rate 78 79 79 Pulse Rate from Sp O2 Sensor 79 79 79 Respiratory Rate Respiratory Effort / Characteristics Respiratory Depth Blood Pressure 115/66 111/70 113/66 Blood Pressure Lynn n 82 83 81 Pulse Oximetry 94 95 95 Oxygen Delivery Me thod Oxygen Flow Rate Fraction of Inspir ed Oxygen Sepsis Recent Feve r Within 48 Hours Sepsis New/Unexpla ined Change in Men thierry Status Sepsis Action Take n by Nursing End-Tidal CO2 41 42 41 Pulse Oximetry Pos t Tiitration 03/09/21 15:50 03/09/21 15:52 03/09/21 15:54 Pulse Rate 79 79 80 Pulse Rate from Sp O2 Sensor 79 79 80 Respiratory Rate Respiratory Effort / Characteristics Respiratory Depth Blood Pressure 112/65 112/70 113/66 Blood Pressure Lynn n 80 84 81 Pulse Oximetry 95 94 95 Oxygen Delivery Me thod Oxygen Flow Rate Fraction of Inspir ed Oxygen Sepsis Recent Feve r Within 48 Hours Sepsis New/Unexpla ined Change in Men thierry Status Sepsis Action Take n by Nursing End-Tidal CO2 41 41 40 Pulse Oximetry Pos t Tiitration 03/09/21 15:56 03/09/21 15:58 03/09/21 16:00 Pulse Rate 79 80 80 Pulse Rate from Sp O2 Sensor 79 80 80 Respiratory Rate Respiratory Effort / Characteristics Respiratory Depth Blood Pressure 109/65 109/65 110/64 Blood Pressure Lynn n 79 79 79 Pulse Oximetry 96 96 97 Oxygen Delivery Me thod Oxygen Flow Rate Fraction of Inspir ed Oxygen Sepsis Recent Feve r Within 48 Hours Sepsis New/Unexpla ined Change in Men thierry Status Sepsis Action Take n by Nursing End-Tidal CO2 39 40 38 Pulse Oximetry Pos t Tiitration 03/09/21 16:02 03/09/21 16:04 03/09/21 16:06 Pulse Rate 80 82 82 Pulse Rate from Sp O2 Sensor 81 82 82 Respiratory Rate Respiratory Effort / Characteristics Respiratory Depth Blood Pressure 107/67 114/69 108/70 Blood Pressure Lynn n 80 84 82 Pulse Oximetry 97 96 97 Oxygen Delivery Me thod Oxygen Flow Rate Fraction of Inspir ed Oxygen Sepsis Recent Feve r Within 48 Hours Sepsis New/Unexpla ined Change in Men thierry Status Sepsis Action Take n by Nursing End-Tidal CO2 37 40 38 Pulse Oximetry Pos t Tiitration 03/09/21 16:08 03/09/21 16:10 03/09/21 16:12 Pulse Rate 78 77 79 Pulse Rate from Sp O2 Sensor 78 77 79 Respiratory Rate Respiratory Effort / Characteristics Respiratory Depth Blood Pressure 88/53 L 89/59 L 103/67 Blood Pressure Lynn n 64 69 79 Pulse Oximetry 99 99 97 Oxygen Delivery Me thod Oxygen Flow Rate Fraction of Inspir ed Oxygen Sepsis Recent Feve r Within 48 Hours Sepsis New/Unexpla ined Change in Men thierry Status Sepsis Action Take n by Nursing End-Tidal CO2 37 36 38 Pulse Oximetry Pos t Tiitration 03/09/21 16:14 03/09/21 16:16 Pulse Rate 80 81 Pulse Rate from Sp O2 Sensor 80 81 Respiratory Rate Respiratory Effort / Characteristics Respiratory Depth Blood Pressure 109/69 111/64 Blood Pressure Lynn n 82 79 Pulse Oximetry 97 98 Oxygen Delivery Me thod Oxygen Flow Rate Fraction of Inspir ed Oxygen Sepsis Recent Feve r Within 48 Hours Sepsis New/Unexpla ined Change in Men thierry Status Sepsis Action Take n by Nursing End-Tidal CO2 38 39 Pulse Oximetry Pos t Tiitration Physical Exam: Physical Exam GENERAL: Patient intubated EYES: Pupils fixed and dilated. NECK: C-collar in place. CV: Normal rate, regular rhythm, palpable radial and femoral pulses. PULM/CHEST: Patient intubated. Rhonchi bilaterally. Equal breath sounds bilaterally. ABD: The abdomen is soft. Scar over the anterior abdominal wall. MUSC/SKEL: Leg braces on bilateral lower extremities. SKIN: Skin is cold Course Course 1350: Received call from EMS EMS. 55-year-old male he was strangling himself. Patient was given 1 shock via [facility] guards who found him with AED. Patient was given 1 dose of epi. ROSC was achieved. Heart alert paged. 1356: Call from EMS. Pulses have been lost. ACLS protocols were initiated. 1405: ROSC reachieved. 1412: The patient was evaluated in room A1. A complete history and physical exam was performed. Administered Medications Sodium Bicarbonate 150 meq/ (Dextrose) 1,150 mls @ 150 mls/hr IV .Q7H40M [facility] Stop: 04/08/21 14:44 Last Infusion: 03/09/21 15:55 Dose: 125 mls/hr Documented by: [id number] Admin: 03/09/21 15:26 Dose: 250 mls/hr Documented by: [id number] Epinephrine HCl () 4 mg in 254 mls @ 161.925 mls/hr IV .Q1H35M SONIA; Protocol Stop: 04/08/21 14:44 Last Titration: 03/09/21 16:12 Dose: 0.27 mcg/kg/min, 87.4 mls/hr Documented by: [id number] Admin: 03/09/21 15:27 Dose: 0.25 mcg/kg/min, 81 mls/hr Documented by: [id number] Cosigned by: [id number] Discontinued Medications Ioversol (Optiray 320 125ml) 120 ml IV ONCE ONE Stop: 03/09/21 14:44 Last Admin: 03/09/21 14:43 Dose: 120 ml Documented by: [id number] Medical Decision Making Laboratory Data Result diagrams: 03/09/21 14:42 03/09/21 14:42 Lab Results 03/09/21 03/09/21 03/09/21 Range/Units 14:26 14:33 14:33 WBC (4.8-10.8) K/uL RBC (4.7-6.1) M/uL Hgb (14.0-18.0) g/dL POC Hgb 15.6 (14.0-18.0) g/dl Hct (42-52) % POC Hct 46 (42-52) % MCV (80-100) fL MCH (25-34) pg MCHC (32-36) g/dL RDW Std Deviation (36.4-46.3) fL RDW Coeff of Garrison (11.5-14.5) % Plt Count (130-400) K/uL MPV (7.4-10.4) fL Absolute Nucleated RBC (0-0) K/uL Nucleated RBC % (auto) % Neutrophils % (Manual) % Lymphocytes % (Manual) % Monocytes % (Manual) % Metamyelocytes % (Man) % Myelocytes % (Man) % Neutrophils # (Manual) (1.4-6.5) K/uL Total Absolute Neuts (1.4-6.5) K/uL Lymphocytes # (Manual) (1.2-3.4) K/uL Total Abs Lymphocytes (1.2-3.4) K/uL Monocytes # (Manual) (0.11-0.59) K/uL Metamyelocytes # (Man) (0-0) K/uL Myelocytes # (Manual) (0-0) K/uL Echinocytes PT (9.0-12.0) Seconds INR (0.9-1.1) APTT (21.0-31.0) Seconds PTT Ratio VBG pH (7.36-7.41) VBG pCO2 (38-50) mmHg VBG pO2 mmHg VBG HCO3 mmol/L VBG O2 Saturation % VBG Base Excess mEq/L Barometric Pressure mm/Hg POC Sodium 141 (135-144) mmol/L Sodium (136-145) mmol/L POC Potassium 5.4 H (3.3-5.0) mmol/L Potassium (3.5-5.1) mmol/L POC Chloride 108 (101-112) mmol/L Chloride (98-107) mmol/L Carbon Dioxide (21-32) mmol/L POC Total CO2 20 L (24-31) mmol/L Anion Gap (3-11) POC Anion Gap 19.0 (16-25) mmol/L POC BUN 17 (7-18) mg/dl BUN (7-18) mg/dl Creatinine (0.6-1.4) mg/dl POC Creatinine 1.2 (0.6-1.3) mg/dl Est Cr Clr Drug Dosing ml/min Est GFR ( Amer) Est GFR (Non-Af Amer) BUN/Creatinine Ratio (10-20) Glucose (70-99) mg/dl POC Glucose (other) 174 H (70-99) mg/dl Lactate (0.4-2.0) mmol/L Calcium (8.5-10.1) mg/dl POC Ioniz Calcium [place] 1.27 (1.12-1.32) mmol/l Troponin I (0-0.045) ng/ml Salicylates (2.8-20) mg/dl Acetaminophen (10-30) ug/ml COVID-19 Eval Order CovFluRsv at [facility] SARS-CoV-2 (PCR) NEGATIVE (Negative) Influenza Type A (PCR) Negative (Neg) Influenza Type B (PCR) Negative (Neg) RSV (RT-PCR) Negative (Neg) 03/09/21 03/09/21 03/09/21 Range/Units 14:42 14:42 14:42 WBC 18.69 H (4.8-10.8) K/uL RBC 5.00 (4.7-6.1) M/uL Hgb 14.7 (14.0-18.0) g/dL POC Hgb (14.0-18.0) g/dl Hct 44.7 (42-52) % POC Hct (42-52) % MCV 89.4 (80-100) fL MCH 29.4 (25-34) pg MCHC 32.9 (32-36) g/dL RDW Std Deviation 45.4 (36.4-46.3) fL RDW Coeff of Garrison 13.9 (11.5-14.5) % Plt Count 214 (130-400) K/uL MPV 9.9 (7.4-10.4) fL Absolute Nucleated RBC 0.06 H (0-0) K/uL Nucleated RBC % (auto) 0.3 % Neutrophils % (Manual) 58.5 % Lymphocytes % (Manual) 30.5 % Monocytes % (Manual) 5.9 % Metamyelocytes % (Man) 1.7 % Myelocytes % (Man) 3.4 % Neutrophils # (Manual) 10.93 H (1.4-6.5) K/uL Total Absolute Neuts 10.93 H (1.4-6.5) K/uL Lymphocytes # (Manual) 5.70 H (1.2-3.4) K/uL Total Abs Lymphocytes 5.70 H (1.2-3.4) K/uL Monocytes # (Manual) 1.10 H (0.11-0.59) K/uL Metamyelocytes # (Man) 0.32 H (0-0) K/uL Myelocytes # (Manual) 0.64 H (0-0) K/uL Echinocytes 1+ PT 16.7 H (9.0-12.0) Seconds INR 1.7 H (0.9-1.1) APTT 66.9 H* (21.0-31.0) Seconds PTT Ratio 2.5 VBG pH (7.36-7.41) VBG pCO2 (38-50) mmHg VBG pO2 mmHg VBG HCO3 mmol/L VBG O2 Saturation % VBG Base Excess mEq/L Barometric Pressure mm/Hg POC Sodium (135-144) mmol/L Sodium 146 H (136-145) mmol/L POC Potassium (3.3-5.0) mmol/L Potassium (3.5-5.1) mmol/L POC Chloride (101-112) mmol/L Chloride 114 H (98-107) mmol/L Carbon Dioxide 17 L (21-32) mmol/L POC Total CO2 (24-31) mmol/L Anion Gap 14.0 H (3-11) POC Anion Gap (16-25) mmol/L POC BUN (7-18) mg/dl BUN 12 (7-18) mg/dl Creatinine 1.20 (0.6-1.4) mg/dl POC Creatinine (0.6-1.3) mg/dl Est Cr Clr Drug Dosing 73.5 ml/min Est GFR ( Amer) 79.5 Est GFR (Non-Af Amer) 68.6 BUN/Creatinine Ratio 10.0 (10-20) Glucose 166 H (70-99) mg/dl POC Glucose (other) (70-99) mg/dl Lactate (0.4-2.0) mmol/L Calcium 8.1 L (8.5-10.1) mg/dl POC Ioniz Calcium [place] (1.12-1.32) mmol/l Troponin I 1.480 H* (0-0.045) ng/ml Salicylates (2.8-20) mg/dl Acetaminophen (10-30) ug/ml COVID-19 Eval Order SARS-CoV-2 (PCR) (Negative) Influenza Type A (PCR) (Neg) Influenza Type B (PCR) (Neg) RSV (RT-PCR) (Neg) 03/09/21 03/09/21 03/09/21 Range/Units 14:42 14:42 14:42 WBC (4.8-10.8) K/uL RBC (4.7-6.1) M/uL Hgb (14.0-18.0) g/dL POC Hgb (14.0-18.0) g/dl Hct (42-52) % POC Hct (42-52) % MCV (80-100) fL MCH (25-34) pg MCHC (32-36) g/dL RDW Std Deviation (36.4-46.3) fL RDW Coeff of Garrison (11.5-14.5) % Plt Count (130-400) K/uL MPV (7.4-10.4) fL Absolute Nucleated RBC (0-0) K/uL Nucleated RBC % (auto) % Neutrophils % (Manual) % Lymphocytes % (Manual) % Monocytes % (Manual) % Metamyelocytes % (Man) % Myelocytes % (Man) % Neutrophils # (Manual) (1.4-6.5) K/uL Total Absolute Neuts (1.4-6.5) K/uL Lymphocytes # (Manual) (1.2-3.4) K/uL Total Abs Lymphocytes (1.2-3.4) K/uL Monocytes # (Manual) (0.11-0.59) K/uL Metamyelocytes # (Man) (0-0) K/uL Myelocytes # (Manual) (0-0) K/uL Echinocytes PT (9.0-12.0) Seconds INR (0.9-1.1) APTT (21.0-31.0) Seconds PTT Ratio VBG pH 6.88 L (7.36-7.41) VBG pCO2 90 H (38-50) mmHg VBG pO2 64 mmHg VBG HCO3 16 mmol/L VBG O2 Saturation 75.6 % VBG Base Excess -18.6 mEq/L Barometric Pressure 729.6 mm/Hg POC Sodium (135-144) mmol/L Sodium (136-145) mmol/L POC Potassium (3.3-5.0) mmol/L Potassium (3.5-5.1) mmol/L POC Chloride (101-112) mmol/L Chloride (98-107) mmol/L Carbon Dioxide (21-32) mmol/L POC Total CO2 (24-31) mmol/L Anion Gap (3-11) POC Anion Gap (16-25) mmol/L POC BUN (7-18) mg/dl BUN (7-18) mg/dl Creatinine (0.6-1.4) mg/dl POC Creatinine (0.6-1.3) mg/dl Est Cr Clr Drug Dosing ml/min Est GFR ( Amer) Est GFR (Non-Af Amer) BUN/Creatinine Ratio (10-20) Glucose (70-99) mg/dl POC Glucose (other) (70-99) mg/dl Lactate 13.6 H* (0.4-2.0) mmol/L Calcium (8.5-10.1) mg/dl POC Ioniz Calcium [place] (1.12-1.32) mmol/l Troponin I (0-0.045) ng/ml Salicylates < 1.7 L (2.8-20) mg/dl Acetaminophen 4 L (10-30) ug/ml COVID-19 Eval Order SARS-CoV-2 (PCR) (Negative) Influenza Type A (PCR) (Neg) Influenza Type B (PCR) (Neg) RSV (RT-PCR) (Neg) Imaging Data Radiologist's Impression: Cervical Spine CT 03/09/21 14:[address] DOSE: 1953.68 mGy.cm HISTORY: Suicide attempt. hanging TECHNIQUE: Multiaxial CT images of the cervical spine were performed and reformatted in the sagittal and coronal plane without the use of contrast. A dose lowering technique was utilized adhering to the principles of ALARA. COMPARISON: Cervical spine CT 11/19/2017. FINDINGS: Reversal the normal lordotic curvature. No acute fracture or subluxation. Anterior cervical discectomy and fusion at C6-C7. The hardware appears intact. An endotracheal tube is partially visualized. Prevertebral soft tissues are maintained. Old nonunited fracture seen within the superior facets of C3 and C4. These demonstrate sclerotic margins. No pneumothorax. Consolidation and interlobular septal thickening within the lung apices. IMPRESSION: 1. No acute fractures within the cervical spine. 2. Consolidation and interlobular septal thickening within the lung apices. This could be due to a pneumonia or pulmonary edema. ACT 112: Negative or not required by law. Electronically signed by: Iglesia Harris M.D. 03/09/2021 3:[address] 03/09/21 14:[address] DOSE: HISTORY: Suicide attempt. hanging TECHNIQUE: Multiaxial CT images of the head were performed without the use of intravenous contrast. Automated exposure control was utilized for this study. A dose lowering technique was utilized adhering to the principles of ALARA. Comparison: Head CT 10/14/2020. Findings: The paranasal sinuses and mastoid air cells are clear. Scattered old alejandro hole seen within the calvarium. No calvarial fractures. There is no mass, hematoma or midline shift. There is diffuse cerebral edema with diffuse loss of the campbell-white junction and effacement of the basilar cisterns. Findings are consistent with a diffuse hypoxic/anoxic brain injury. Impression: There is diffuse cerebral edema with diffuse loss of the campbell-white junction and effacement of the basilar cisterns. Findings are consistent with a diffuse hypoxic/anoxic brain injury. ACT 112: Negative or not required by law. Electronically signed by: Iglesia Harris M.D. 03/09/2021 3:07 PM Head CTA 03/09/21 14:16 HEAD & NECK CTA HISTORY: Suicide attempt. hanging TECHNIQUE: Multiaxial CT images of the head were performed following the intravenous administration of contrast to evaluate the major cerebral vessels. Multiaxial CT images of the neck were also performed following the intravenous administration of contrast to evaluate the major cervical vessels. Maximum intensity projection images were also obtained. A dose lowering technique was utilized adhering to the principles of ALARA. COMPARISON: Head CT 03/09/2021. FINDINGS: Diffuse cerebral edema consistent with a hypoxic/anoxic brain injury is again noted. Visualized intracranial internal carotid arteries, distal vertebral arteries, and basilar artery are widely patent. There is no significant stenosis, occlusion, or aneurysm seen within the bilateral ACAs, MCAs, or sterile products processor. The major dural venous sinuses are patent. The aortic arch and proximal great vessels are widely patent. There is no significant stenosis, occlusion, or dissection identified within the bilateral common carotid, internal carotid, or vertebral arteries. No pneumothorax. Dense consolidation within the upper lung zones posteriorly with associated groundglass densities and interlobular septal thickening. This could represent pulmonary edema or pneumonia. Endotracheal tube terminates 2 cm from the pj. Old, healed right clavicle fracture. C6-C7 ACDF. IMPRESSION: 1. No significant stenosis, occlusion, or aneurysm within the [place]. 2. No significant stenosis, occlusion, or dissection identified within the carotid or vertebral arteries. 3. Diffuse cerebral edema consistent with a hypoxic/anoxic brain injury. 4. Dense consolidation within the upper lung zones with associated groundglass densities and interlobular septal thickening. This may represent pulmonary edema or pneumonia. 5. Endotracheal tube terminates 2 cm from the pj. ACT 112: Negative or not required by law. Electronically signed by: Iglesia Harris M.D. 03/09/2021 3:18 PM Neck CTA 03/09/21 14:16 HEAD & NECK CTA HISTORY: Suicide attempt. hanging TECHNIQUE: Multiaxial CT images of the head were performed following the intravenous administration of contrast to evaluate the major cerebral vessels. Multiaxial CT images of the neck were also performed following the intravenous administration of contrast to evaluate the major cervical vessels. Maximum intensity projection images were also obtained. A dose lowering technique was utilized adhering to the principles of ALARA. COMPARISON: Head CT 03/09/2021. FINDINGS: Diffuse cerebral edema consistent with a hypoxic/anoxic brain injury is again noted. Visualized intracranial internal carotid arteries, distal vertebral arteries, and basilar artery are widely patent. There is no significant stenosis, occlusion, or aneurysm seen within the bilateral ACAs, MCAs, or sterile products processor. The major dural venous sinuses are patent. The aortic arch and proximal great vessels are widely patent. There is no significant stenosis, occlusion, or dissection identified within the bilateral common carotid, internal carotid, or vertebral arteries. No pneumothorax. Dense consolidation within the upper lung zones posteriorly with associated groundglass densities and interlobular septal thickening. This could represent pulmonary edema or pneumonia. Endotracheal tube terminates 2 cm from the pj. Old, healed right clavicle fracture. C6-C7 ACDF. IMPRESSION: 1. No significant stenosis, occlusion, or aneurysm within the [place]. 2. No significant stenosis, occlusion, or dissection identified within the carotid or vertebral arteries. 3. Diffuse cerebral edema consistent with a hypoxic/anoxic brain injury. 4. Dense consolidation within the upper lung zones with associated groundglass densities and interlobular septal thickening. This may represent pulmonary edema or pneumonia. 5. Endotracheal tube terminates 2 cm from the pj. ACT 112: Negative or not required by law. Electronically signed by: Iglesia Harris M.D. 03/09/2021 3:18 PM Chest X-Ray 03/09/21 14:17 XR chest 1V portable HISTORY: Suicide attempt. Endotracheal tube placement. COMPARISON: Chest 07/26/2020. FINDINGS: Endotracheal tube terminates 2.9 cm from the pj. There is a markedly distended and gas-filled stomach. Near diffuse hazy airspace opacities within the lungs. No pleural effusions. No pneumothorax. The heart is top normal in size. There is also perihilar interstitial/vascular thickening. Old, healed right-sided clavicle fracture. IMPRESSION: 1. The endotracheal tube terminates 2.9 cm from the pj. 2. Near diffuse bilateral hazy airspace opacities. This could represent pulmonary edema or an atypical pneumonia. ACT 112: Negative or not required by law. Electronically signed by: Iglesia Harris M.D. 03/09/2021 2:48 PM KUB X-Ray 03/09/21 15:52 KUB HISTORY: cardiac arrest; abd distension COMPARISON: KUB 03/03/2021. FINDINGS: Contrast within the bladder from the recent CT examination. There is a shunt catheter within the lower abdomen. Severely distended and gas-filled stomach. There are mildly distended gas and stool-filled loops of large and small bowel. These findings favor an ileus. A rectal catheter is also noted. There appears to be a nasogastric tube with the tip terminating in the proximal stomach just beyond the gastroesophageal junction. No renal calculi. No urete ral calculi. No pneumoperitoneum or pneumatosis. IMPRESSION: 1. Severely distended gas-filled stomach. There are also mildly distended gas and stool-filled loops of large and small bowel. This favors an ileus. 2. The tip of the nasogastric tube terminates in the proximal stomach just beyond the gastroesophageal junction. ACT 112: Negative or not required by law. Electronically signed by: Iglesia Harris M.D. 03/09/2021 4:18 PM ECG Data Indication: other (cardiac arrest) Additional Comments: EKG at 1419: Sinus rhythm with a rate of 81. IL 134 QRS 174 QTC 525. Right bundle branch block present. MDM Narrative On arrival the patient was hypotensive but did have cardiac activity on bedside ultrasound as well as a strong femoral and radial pulse. Patient was given calcium chloride. 1 Amp of bicarb were given to the patient. Dr. Callahan at bedside. He stated patient is not emergent cath patient at this time. No Mobile Sales Assistant at this time. Epinephrine drip was started on the patient. 2 additional amps of bicarb and bicarb drip was started on the patient. Patient was taken to CT. Imaging reviewed by me showed no ICH. Labs show a leukocytosis of 18.69, venous pH of 6.88 venous PCO2 of 90. Patient's respiratory rate was increased. POC potassium 5.4. Troponin I 0.48. Lactate 13.6.AST and ALT elevated at 623 and 625 respectively. Imaging showed no C-spine fracture CT angios were negative. CT of the head did show diffuse cerebral edema with loss of campbell- white junction consistent with severe anoxic brain injury. Discussed the case with ICU doctor Dr. Mccormack. Patient has extremely poor prognosis and is most likely brain . [facility] and be moved to the [facility]. [facility] guards were asked that the patient has next of kin and they stated they were not sure at this point. Impression & Plan Anoxic brain injury, Suicide attempt by hanging, Cardiac arrest, Respiratory failure Critical Care Time Critical Care Time: Yes Total Critical Care Time: 119 I have personally spent greater than 119 minutes of critical care time in the direct management of this patient. This includes bedside care, interpretation of diagnostic studies, and testing, discussion with consultants, patient, and family members, and other required patient management activities. This 119 minutes is in excess of all separately billable procedures. Discharge Plan Visit Data Chief Complaint: Cardiac Arrest/CPR ED Provider: Nav Rivera Discharge Problem: Anoxic brain injury, Suicide attempt by hanging, Cardiac arrest, Respiratory failure Patient Disposition: Admitted As Inpatient Forms Stand Alone Forms: My [facility] Prescriptions Prescriptions: No Action pramipexole 1 mg tablet 1 mg PO TID RF: 0 pregabalin [Lyrica] 200 mg capsule 200 mg PO BID RF: 0 lamotrigine 100 mg Tablet 200 mg PO BID RF: 0 sennosides [senna] 8.6 mg Tablet 17.2 mg PO HS PRN (Reason: Constipation) RF: 0 verapamil 180 mg Tablet Extended Release 180 mg PO QAM RF: 0 furosemide 20 mg Tablet 20 mg PO QAM PRN (Reason: swelling) RF: 0 hydroxyzine pamoate [Vistaril] 50 mg Capsule 50 mg PO BID RF: 0 Spiriva with HandiHaler 18 mcg Capsule, W/Inhalation Device 1 cap INHALATION DAILY@0630 RF: 0 levalbuterol tartrate [Xopenex HFA] 45 mcg/actuation Hfa Aerosol Inhaler 2 inh INHALATION QID PRN (Reason: Shortness Of Breath) RF: 0 biotin 5,000 mcg Tablet, Sublingual 5,000 mcg SUBLINGUAL DAILY RF: 0 lamotrigine 25 mg Tablet 50 mg PO BID RF: 0 cholecalciferol (vitamin D3) [Vitamin D3] 5,000 unit Tablet 5,000 unit PO QAM RF: 0 tramadol 50 mg Tablet 100 mg PO TID PRN (Reason: moderate pain) RF: 0 sulfamethoxazole-trimethoprim [Sulfatrim DS] 800-160 mg Tablet 1 tab PO Q12H RF: 0 modafinil 200 mg Tablet 200 mg PO QAM RF: 0 ammonium lactate 12 % Cream 1 applic TOPICAL DAILY RF: 0 Desitin 40 % Paste 1 applic TOPICAL TID PRN (Reason: Skin Irritation) RF: 0 Biotene Dry Mouth Oral Rinse Mouthwash 1 ea PO TID RF: 0 Ubrelvy 100 mg Tablet 100 mg PO DIRECTED MDD 2 TAB/24 HOURS PRN (Reason: NEEDED) RF: 0 Referrals Referrals: Chriss OAKLEY [Primary Care Provider] -
[2021-03-09 16:41] LABS: Albumin Level 1.3 gm/dl (3.4-5.0); Bilirubin,Total 0.4 mg/dl (0.2-1); Total Protein 2.8 gm/dl (6.4-8.2)
[2021-03-09] MEDS ORDERED: ICU PROTOCOL FOR HYPERGLYCEMIA PRN ×2 (17:07→17:57)
[2021-03-09] MEDS ORDERED: FAMOTIDINE 20 MG in SYRINGE 3 ML IV SCH (17:30)
[2021-03-09] MEDS ORDERED: Nursing to Pharmacy Communication SCH (17:45)
[2021-03-09] MEDS ORDERED: STAT IV Infusion **Titration per Protocol STA (17:49)
[2021-03-09] MEDS ORDERED: SODIUM CHLORIDE 0.9% 1000ML 1,000 ML IV SCH (18:00)
[2021-03-09] MEDS ORDERED: VASOPRESSIN 20 UNITS in 0.9 % SODIUM CHLORIDE 100 ML IV SCH (18:00)
--- NOTE | 2021-03-09 18:02 | Procedure Note ---
Procedure Note Date of Service March 09, 2021 CENTRAL LINE PROCEDURE NOTE: Procedure: Central Line Placement Provider: Mono Mccormack MD Indication: Central Drug Administration, Poor Venous Access, Multiple Lab Draws Necessary, etc. Anesthesia: None Site: Left subclavian Procedure was emergent. Patient intubated and sedated. No family available. A time-out was completed verifying correct patient, procedure, site, positioning, and implants(s) or special equipment if applicable. Patients left infraclavicular fossa was cleansed and draped in the typical sterile fashion using Chloraprep. The left subclavian vein was cannulated based on landmark using an introducer needle on a syringe. Good venous blood return was maintained prior to removal of syringe from introducer needle. Using Seldinger Technique, a guide wire was advanced through the introducer needle without resistance. The introducer needle was removed. A small incision was made in penetrating fashion at the guide wire insertion site utilizing an 11 blade scalpel. The dilator was advanced to the vessel without resistance. The dilator was exchanged for the tr iple lumen catheter which was advanced into the vessel without resistance. The guide wire was removed intact from the catheter without issue. Claves were placed on each catheter tip with confirmation of good blood flow from each lumen. Each port was easily flushed with sterile saline. The catheter was placed at 20 cm and sutured in place. BioPatch was applied to the catheter and a sterile Tegaderm dressing was applied over the catheter with careful attention to sterility. Patient tolerated procedure well. No immediate complications were met. Post procedure x-ray was completed, placement was appropriate and no pneumothorax was noted. Coding CPT Codes Tubes, Drains, and Vasc Access - Tubes, Drains, and Vasc Access: [id number] Place catheter in vein superior or inferior vena cava ([id number]) [facility] [place] Procedure Codes (Charges) Tubes, Drains, and Vasc Access Procedure 1: Tubes, Drains, and Vasc Access: [id number] Place catheter in vein superior or inferior vena cava
--- NOTE | 2021-03-09 18:03 | XRay Report ---
XR chest 1V portable HISTORY: Evaluate central line placement. COMPARISON: Chest 03/09/2021. FINDINGS: The tip of the nasogastric tube terminates at the proximal stomach just beyond the gastroes ophageal junction. This could be advanced by approximately 5 to 10 cm. Interval placement left subcla vian central venous catheter terminates in the expected location of the SVC. Endotracheal tube termin ates 3.8 cm from the pj. Old, healed right clavicle fracture. Cervical spinal fusion hardware is again noted. Bilateral hazy airspace opacities persist. The heart is normal in size. IMPRESSION: 1. Nasogastric tube terminates in the proximal stomach. This should be advanced by approximately 5 to 10 cm. 2. Endotracheal tube and left subclavian central venous catheter appear in good position. 3. No change in the bilateral hazy airspace opacities. ACT 112: Negative or not required by law. Electronically signed by: Iglesia Harris M.D. 03/09/2021 6:01 PM
--- NOTE | 2021-03-09 18:05 | Procedure Note ---
Procedure Note Date of Service March 09, 2021 ARTERIAL LINE PROCEDURE NOTE: Procedure: Arterial Line Placement Provider: Mono Mccormack MD Indication: Monitoring on Pressors Anesthesia: None Procedure was urgent. Patient unable to consent due to being intubated on the ventilator. No family available. A time-out was completed verifying correct patient, procedure, site, positioning, and implant(s) or special equipment if applicable. An initial attempt was made in the left radial artery however the patient's blood pressure was marginal and I elected to transition to a femoral approach given his high pressor requirements. The right groin was prepped using chlorhexidine. A sterile field was established. Ultrasound was used to visualize the femoral artery and vein. Under direct ultrasound visualization, the left femoral artery was cannulated using an 18-gauge needle. A wire was passed without difficulty. The needle was removed over the wire. A small skin robe was made with a scalpel and a 12cm catheter was threaded over the wire into the artery. The wire was removed with pulsatile blood return. It was attached to the transducer and an arterial waveform was confirmed. Catheter was sutured in place. A Biopatch was placed and a sterile dressing applied. Blood Loss: Minimal Complications: None Coding CPT Codes Tubes, Drains, and Vasc Access - Tubes, Drains, and Vasc Access: [id number] Insertion Catheter, Artery ([id number]) Tubes, Drains, and Vasc Access - Tubes, Drains, and Vasc Access: [id number] Ultrasound Guidance For Vascular ([id number]) [facility] [place] Codes (Charges) Tubes, Drains, and Vasc Access Procedure 1: Tubes, Drains, and Vasc Access: [id number] Insertion Catheter, Artery Procedure 2: Tubes, Drains, and Vasc Access: [id number] Ultrasound Guidance For Vascular
[2021-03-09 18:12] LABS: Appearance Urine Clear (Clear); Bacteria Urine Automated Negative (Negative); Bilirubin Urine Negative (Negative); Blood Urine 3+ (Negative); Color Urine Yellow; Glucose Urine UA Trace (Negative); Ketones Urine Negative (Negative); Leukocyte Esterase Urine Negative (Negative); Nitrite Urine Negative (Negative); RBC Urine Automated 0-4 /hpf (0-4); Specific Gravity Urine 1.015 (1.000-1.030); Urobilinogen Urine Negative (Negative); WBC Urine Automated >30 /hpf (0-5); pH Urine 7.5 (4.5-7.5)
[2021-03-09 18:15] LABS: Protein Urine 2+ (Negative)
[2021-03-09 19:29] LABS: iSTAT Arterial Blood Gas HCO3 20 meg/L (19-24); iSTAT Arterial Blood Gas pCO2 63 mmHg (35-46); iSTAT Arterial Blood Gas pH 7.11 (7.35-7.45); iSTAT Arterial Blood Gas pO2 70 mmHg (80-95); iSTAT Carbon Dioxide 22 mmol/L (24-31)
[2021-03-09 21:14] LABS: Albumin Globulin Ratio 1.1 (0.9-2); Albumin Level 2.5 gm/dl (3.4-5.0); BUN Creatinine Ratio 12.6 (10-20); Bilirubin,Total 0.8 mg/dl (0.2-1); Calcium 7.5 mg/dl (8.5-10.1); Creatinine Clr Calc Pharmacy 45.5 ml/min; Est GFR (African American) 44.5; Est GFR (Non-African American) 38.4; Globulin 2.3 gm/dl (2.5-4.0); Potassium 3.7 mmol/L (3.5-5.1); Total Protein 4.8 gm/dl (6.4-8.2)
--- NOTE | 2021-03-09 22:03 | Death Pronouncement Note ---
Date of Service March 09, 2021 Pronouncement Note Admission Date Admission Date: March 09, 2021 PRONOUNCEMENT NOTE - Date: 03/09/2021 Time: 2155 I was contacted by nursing staff regarding the patients declining status and concerns for imminent demise. In short, 55-year-old male presented to the emergency department following a suicide attempt by hanging in which he received CPR and multiple shocks with AED. Patient was intubated and receiving high doses of vasopressors and bicarb drip. It was unclear how long it had been since he was last seen normal and metabolic evidence along with CT imaging with loss of campbell-white matter interface suggest prolonged downtime and extensive neurological dysfunction. No evidence of neurological reflexes on exam. Patient was made DNR earlier this evening. Despite high doses of vasopressors patient hemodynamics continued to decline. Assessment: I presented to the patients room for evaluation. Upon assessment, the patient was found to be in a terminal state. Pupils were fixed and dilated without response. No palpable pulses appreciated. No spontaneous breaths noted. Heart sounds were absent. No response to painful stimuli. Time of : 2155 as pronounced by myself. Patient's present at bedside. Appropriate response to grief appreciated. Patients primary service was contacted and made aware of patient demise. Pronouncement section of the Certificate was filled out and signed by myself. Cause of : Primary -cardiac arrest Secondary -circulatory shock Contributing Causes of -anoxic brain injury Please feel free to contact me with any questions regarding the above-mentioned course. Contributing Factors (1) Anoxic brain injury: (2) Lactic acidosis: (3) Cardiac arrest: (4) Suicide attempt by hanging: Additional Data Attending physician: Sonido Marie Coding Level of Care Code None Diagnoses Anoxic brain injury G93.1 Lactic acidosis E87.2 Cardiac arrest I46.9 Suicide attempt by hanging T71.162A
[2021-03-09 23:51] LABS: Amphetamines+Metham, Urine Neg (Neg); Barbiturates, Urine Neg (Neg); Benzodiazepine, Urine Neg (Neg); Cocaine, Urine Neg (Neg); MDMA (Ecstacy), Urine Neg (Neg); Methadone, Urine Neg (Neg); Opiate, Urine Neg (Neg); Phencyclidine, Urine Neg (Neg)
[2021-03-09] MEDS ORDERED: CALCIUM CHLORIDE 10% 10 ML SYR IV ONE (23:54)
[2021-03-09] MEDS ORDERED: SODIUM BICARB 8.4% INJ 50 MEQ/50 ML SYR IV ONE (23:54)
[2021-03-11 11:39] LABS: iSTAT Arterial Blood Gas HCO3 16 meg/L (19-24); iSTAT Arterial Blood Gas pCO2 110 mmHg (35-46); iSTAT Arterial Blood Gas pO2 47 mmHg (80-95); iSTAT Carbon Dioxide 20 mmol/L (24-31)
[2021-03-11 11:40] LABS: iSTAT Arterial Blood Gas pH 6.78 (7.35-7.45); iSTAT Sample Type Arterial
[2021-03-11 11:41] LABS: iSTAT Arterial Blood Gas HCO3 19 meg/L (19-24); iSTAT Arterial Blood Gas pCO2 69 mmHg (35-46); iSTAT Arterial Blood Gas pO2 134 mmHg (80-95); iSTAT Carbon Dioxide 22 mmol/L (24-31); iSTAT Sample Type Arterial
[2021-03-11 11:42] LABS: iSTAT Arterial Blood Gas pH 6.99 (7.35-7.45)
--- NOTE | 2021-03-12 05:16 | Electrocardiogram Report ---
Test Reason : Blood Pressure : / mmHG Vent. Rate : 081 BPM Atrial Rate : 081 BPM P-R Int : 134 ms QRS Dur : 174 ms QT Int : 452 ms P-R-T Axes : 000 103 013 degrees QTc Int : 525 ms Possible Sinus rhythm Right bundle branch block Abnormal ECG When compared with ECG of 04-JUN-2019 17:59, Right bundle branch block is now Present Confirmed by Ildefonso Fischer ([id number]) on 03/12/2021 5:15:30 AM Referred By: Chriss OAKLEY Confirmed By:Ildefonso Fischer
--- NOTE | 2021-03-13 18:00 | Discharge Summary ---
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 He was found by the guards in his cell, the cord was cut, he was placed on the ground, CPR was started, and AED was applied. It was uncertain how long he had been attached to the cord. He ultimately received 1 defibrillation by report from the AED. Upon EMS arrival he was in PEA and epinephrine was given with episcopal of ci rculation. He was intubated in the field and placed in a c-collar. During transport to [facility] he apparently lost his pulse, CPR was restarted, and epinephrine was given again. Upon presentation here he had a pulse but was not spontaneously breathing. Dr Stef Callahan was consulted and it was felt that going to the labels molder was not indicated. He received 3 amps of bicarbonate, calcium chloride, epinephrine drip was started, and bicarbonate drip was also initiated. CT head with signs of anoxia. Initial pH on blood gas 6.8. He has had no spontaneous movements since arrival. Records were reviewed and show that patient was in our ER on 03/03/2021. At that time he apparently had placed a letter in his rectum, followed by attempts to place a bottle of deodorant in the rectum to push the letter up higher. The letter fell out of his rectum, but the deodorant remained. He was transferred to [facility] to retrieve the foreign body. Principal Diagnosis suicide attempt by way of hanging with resulting cardiac arrest and anoxic brain injury Discharge Exam Please refer to my admission exam from history & physical documentation Please see note by Ebenezer ROSEN for pronouncement exam Discharge Data Allergies Allergy/AdvReac Type Severity Reaction Status Date / Time codeine Allergy Unknown Gastrointestinal Verified 03/09/21 14:47 Upset methadone Allergy Unknown SCI LIST Verified 03/09/21 14:47 Penicillins Allergy Unknown SCI LIST Verified 03/09/21 14:47 quetiapine Allergy Unknown SCI LIST Verified 03/09/21 14:47 Tdcbiee-Fli-Hsy Reductase Allergy Unknown SCI LIST Verified 03/09/21 14:47 Inhibitor tetracycline Allergy Unknown SCI LIST Verified 03/09/21 14:47 Consultations Consult Production Superintendent Procedures Performed 1. arterial line 2. subclavian central line Ordered Studies 03/09/21 CT angio head w con Stat CT angio neck with con Stat CT cervical spine wo con Stat CT head/brain wo con Stat Cervical Spine CT 03/09/21 14:[address] DOSE: 1953.68 mGy.cm HISTORY: Suicide attempt. hanging TECHNIQUE: Multiaxial CT images of the cervical spine were performed and reformatted in the sagittal and coronal plane without the use of contrast. A dose lowering technique was utilized adhering to the principles of ALARA. COMPARISON: Cervical spine CT 11/19/2017. FINDINGS: Reversal the normal lordotic curvature. No acute fracture or subluxation. Anterior cervical discectomy and fusion at C6-C7. The hardware appears intact. An endotracheal tube is partially visualized. Prevertebral soft tissues are maintained. Old nonunited fracture seen within the superior facets of C3 and C4. These demonstrate sclerotic margins. No pneumothorax. Consolidation and interlobular septal thickening within the lung apices. IMPRESSION: 1. No acute fractures within the cervical spine. 2. Consolidation and interlobular septal thickening within the lung apices. This could be due to a pneumonia or pulmonary edema. ACT 112: Negative or not required by law. Electronically signed by: Iglesia Harris M.D. 03/09/2021 3:[address] 03/09/21 14:[address] DOSE: HISTORY: Suicide attempt. hanging TECHNIQUE: Multiaxial CT images of the head were performed without the use of intravenous contrast. Automated exposure control was utilized for this study. A dose lowering technique was utilized adhering to the principles of ALARA. Comparison: Head CT 10/14/2020. Findings: The paranasal sinuses and mastoid air cells are clear. Scattered old alejandro hole seen within the calvarium. No calvarial fractures. There is no mass, hematoma or midline shift. There is diffuse cerebral edema with diffuse loss of the campbell-white junction and effacement of the basilar cisterns. Findings are consistent with a diffuse hypoxic/anoxic brain injury. Impression: There is diffuse cerebral edema with diffuse loss of the campbell-white junction and effacement of the basilar cisterns. Findings are consistent with a diffuse hypoxic/anoxic brain injury. ACT 112: Negative or not required by law. Electronically signed by: Iglesia Harris M.D. 03/09/2021 3:07 PM Head CTA 03/09/21 14:16 HEAD & NECK CTA HISTORY: Suicide attempt. hanging TECHNIQUE: Multiaxial CT images of the head were performed following the intravenous administration of contrast to evaluate the major cerebral vessels. Multiaxial CT images of the neck were also performed following the intravenous administration of contrast to evaluate the major cervical vessels. Maximum intensity projection images were also obtained. A dose lowering technique was utilized adhering to the principles of ALARA. COMPARISON: Head CT 03/09/2021. FINDINGS: Diffuse cerebral edema consistent with a hypoxic/anoxic brain injury is again noted. Visualized intracranial internal carotid arteries, distal vertebral arteries, and basilar artery are widely patent. There is no significant stenosi s, occlusion, or aneurysm seen within the bilateral ACAs, MCAs, or networking engineer. The major dural venous sinuses are patent. The aortic arch and proximal great vessels are widely patent. There is no significant stenosis, occlusion, or dissection identified within the bilateral common carotid, internal carotid, or vertebral arteries. No pneumothorax. Dense consolidation within the upper lung zones posteriorly with associated groundglass densities and interlobular septal thickening. This could represent pulmonary edema or pneumonia. Endotracheal tube terminates 2 cm from the pj. Old, healed right clavicle fracture. C6-C7 ACDF. IMPRESSION: 1. No significant stenosis, occlusion, or aneurysm within the [place]. 2. No significant stenosis, occlusion, or dissection identified within the carotid or vertebral arteries. 3. Diffuse cerebral edema consistent with a hypoxic/anoxic brain injury. 4. Dense consolidation within the upper lung zones with associated groundglass densities and interlobular septal thickening. This may represent pulmonary edema or pneumonia. 5. Endotracheal tube terminates 2 cm from the pj. ACT 112: Negative or not required by law. Electronically signed by: Iglesia Harris M.D. 03/09/2021 3:18 PM Neck CTA 03/09/21 14:16 HEAD & NECK CTA HISTORY: Suicide attempt. hanging TECHNIQUE: Multiaxial CT images of the head were performed following the intravenous administration of contrast to evaluate the major cerebral vessels. Multiaxial CT images of the neck were also performed following the intravenous a dministration of contrast to evaluate the major cervical vessels. Maximum intensity projection images were also obtained. A dose lowering technique was utilized adhering to the principles of ALARA. COMPARISON: Head CT 03/09/2021. FINDINGS: Diffuse cerebral edema consistent with a hypoxic/anoxic brain injury is again noted. Visualized intracranial internal carotid arteries, distal vertebral arteries, and basilar artery are widely patent. There is no significant stenosis, occlusion, or aneurysm seen within the bilateral ACAs, MCAs, or networking engineer. The major dural venous sinuses are patent. The aortic arch and proximal great vessels are widely patent. There is no significant stenosis, occlusion, or dissection identified within the bilateral common carotid, internal carotid, or vertebral arteries. No pneumothorax. Dense consolidation within the upper lung zones posteriorly with associated groundglass densities and interlobular septal thickening. This could represent pulmonary edema or pneumonia. Endotracheal tube terminates 2 cm from the pj. Old, healed right clavicle fracture. C6-C7 ACDF. IMPRESSION: 1. No significant stenosis, occlusion, or aneurysm within the [place]. 2. No significant stenosis, occlusion, or dissection identified within the carotid or vertebral arteries. 3. Diffuse cerebral edema consistent with a hypoxic/anoxic brain injury. 4. Dense consolidation within the upper lung zones with associated groundglass densities and interlobular septal thickening. This may represent pulmonary edema or pneumonia. 5. Endotracheal tube terminates 2 cm from the pj. ACT 112: Negative or not required by law. Electronically signed by: Iglesia Harris M.D. 03/09/2021 3:18 PM Chest X-Ray 03/09/21 14:17 XR chest 1V portable HISTORY: Suicide attempt. Endotracheal tube placement. COMPARISON: Chest 07/26/2020. FINDINGS: Endotracheal tube terminates 2.9 cm from the pj. There is a markedly distended and gas-filled stomach. Near diffuse hazy airspace opacities within the lungs. No pleural effusions. No pneumothorax. The heart is top normal in size. There is also perihilar interstitial/vascular thickening. Old, healed right-sided clavicle fracture. IMPRESSION: 1. The endotracheal tube terminates 2.9 cm from the pj. 2. Near diffuse bilateral hazy airspace opacities. This could represent pulmonary edema or an atypical pneumonia. ACT 112: Negative or not required by law. Electronically signed by: Iglesia Harris M.D. 03/09/2021 2:48 PM KUB X-Ray 03/09/21 15:52 KUB HISTORY: cardiac arrest; abd distension COMPARISON: KUB 03/03/2021. FINDINGS: Contrast within the bladder from the recent CT examination. There is a shunt catheter within the lower abdomen. Severely distended and gas-filled stomach. There are mildly distended gas and stool-filled loops of large and small bowel. These findings favor an ileus. A rectal catheter is also noted. There appears to be a nasogastric tube with the tip terminating in the proximal stomach just beyond the gastroesophageal junction. No renal calculi. No ureteral calculi. No pneumoperitoneum or pneumatosis. IMPRESSION: 1. Severely distended gas-filled stomach. There are also mildly distended gas and stool-filled loops of large and small bowel. This favors an ileus. 2. The tip of the nasogastric tube terminates in the proximal stomach just beyond the gastroesophageal junction. ACT 112: Negative or not required by law. Electronically signed by: Iglesia Harris M.D. 03/09/2021 4:18 PM Chest X-Ray 03/09/21 17:27 XR chest 1V portable HISTORY: Evaluate central line placement. COMPARISON: Chest 03/09/2021. FINDINGS: The tip of the nasogastric tube terminates at the proximal stomach just beyond the gastroesophageal junction. This could be advanced by approximately 5 to 10 cm. Interval placement left subclavian central venous catheter terminates in the expected location of the SVC. Endotracheal tube terminates 3.8 cm from the pj. Old, healed right clavicle fracture. Cervical spinal fusion hardware is again noted. Bilateral hazy airspace opacities persist. The heart is normal in size. IMPRESSION: 1. Nasogastric tube terminates in the proximal stomach. This should be advanced by approximately 5 to 10 cm. 2. Endotracheal tube and left subclavian central venous catheter appear in good position. 3. No change in the bilateral hazy airspace opacities. ACT 112: Negative or not required by law. Electronically signed by: Iglesia Harris M.D. 03/09/2021 6:01 PM Hospital Course (1) Suicide attempt by hanging: With resulting cardiac arrest and evidence of anoxic brain injury on initial CT head at time of admission. Patient's had mentioned shortly after admission that patient had been struggling with his mental health for some time. (2) Cardiac arrest: Hypoxia-induced cardiac arrest due to suicide attempt by way of hanging. s/p CPR in the field along with intubation, defibrillation, epi, etc. Successful episcopal of spontaneous circulation but needing epi drip to maintain MAP>65 at time of admission. See below in shock. Presenting troponin was 1.4. Invasive cardiology evaluated the patient upon ER presentation but ACS was not suspected; thus, cardiac catheterization was deferred. (3) Shock circulatory: cardiogenic. 2nd to cardiac arrest/anoxia. epinephrine drip initiated in the ER for BP support. after admission to the ICU his shock worsened and additional pressor agents were added to the epinephrine. despite pressor support he continued with refractory shock. the patient was made DNR several hours after admission to the ICU, and ultimately he developed terminal bradycardia and then asystole. (4) Anoxic brain injury: CT head with evidence of severe anoxic injury at time of ER presentation. Pupils were fixed/dilated, no corneal reflex, no response to pain/voice, no spontaneous movements of limbs, reflexes absent. The team suspected, although could not prove because of persistent acidosis, that patient had likely suffered brain . Ultimately the patient developed refractory shock, bradycardia, and then asystole. (5) Coagulopathy: Presenting INR 1.7. Likely 2nd shock liver. (6) Lactic acidosis: Severe. 2nd to suicide attempt by hanging, hypoxia, prolonged cardiac arrest and prolonged resuscitative efforts. (7) Shock liver: 2nd to cardiac arrest severe (8) Acute renal failure due to tubular necrosis: Presenting Cr was 1.2, jumping to 1.9 within just a few hours of admissi on. 2nd ATN in setting of cardiac arrest. (9) Multiple sclerosis: (10) Asthma: (11) Bipolar disorder: long-standing, on lamictal (12) HTN (hypertension): (13) Diabetes: was not on meds prior to admission Total Time Total Time Spent Total Time Spent (In Minutes): 35 Total Time Includes: Communication With Other Providers Discharge Plan Discharge Items Patient Disposition: Coding Level of Care Code D/C Day Management >30 mins Diagnoses Suicide attempt by hanging T71.162A Encounter type: initial encounter Cardiac arrest I46.9 Shock circulatory R57.9 Anoxic brain injury G93.1 Coagulopathy D68.9 Lactic acidosis E87.2 Shock liver K72.00 Acute renal failure due to tubular necrosis N17.0 Multiple sclerosis G35 Asthma J45.909 Bipolar disorder F31.9 HTN (hypertension) I10 Hypertension type: essential hypertension Diabetes E11.9
== END 2021-03-09 23:55 | disposition expired | DRG 922 ==
LOC: ED 14:11 → 1E 16:09